=== PATIENT | female | born 1950 | race Caucasian/White ===

== ENCOUNTER 2016-11-27 12:43 | Observation (INO) ==
--- NOTE | 2016-11-27 13:10 | Emergency Department Note ---
Disposition Clinical Impression: Gastroenteritis, UTI (urinary tract infection) Disposition: Admitted As Inpatient Condition: Fair Referrals: Veronica Carr, SECURITY RESEARCHER [Primary Care Provider] - Forms: ED Satisfaction Letter Time of Disposition: 15:33 ([facility]) Nausea/Vomiting/Diarrhea HPI - General Chief complaint: ED Nausea/Vomiting/Diarrhea Stated complaint: N/V/D Source: patient Limitations: no limitations - History of Present Illness Pt Subjective Complaint: nausea, vomiting, diarrhea, abdominal pain Onset (ago): day(s) Description of emesis: food contents Description of Diarrhea: mucous Associated Abdominal Pain: Yes If pain, Location of pain: diffuse Severity: moderate Severity scale (1-10): 5 Quality: cramping Consistency: intermittent Improves with: nothing Worsens with: medication Context: recent antibiotic use Associated symptoms: Reports: loss of appetite. Denies: myalgias, chest pain, cough, diaphoresis, fever/chills, headaches, malaise, nausea/vomiting, dysuria, shortness of breath, syncope, weakness - Related Data Home Medications Medication Instructions Recorded Confirmed Simvastatin [Zocor] 5 mg PO HS 08/04/15 11/21/16 Furosemide [Lasix] 20 mg PO BID 10/23/15 11/21/16 Klor-Con Sprinkle 20 meq PO BID 10/23/15 11/21/16 Insulin Glargine [Lantus] 30 unit QPM 11/21/16 11/21/16 Promethazine [Phenergan] 25 mg PO 11/21/16 Previous Rx's Medication Instructions Recorded OxyCODONE Immed Rel [Roxicodone 5 5 mg PO Q4HR PRN #40 tablet 09/07/15 MG] Cephalexin [Keflex] 1,000 mg PO BID #40 capsule 11/21/16 Phenazopyridine HCl [Pyridium] 200 mg PO TIDAC #8 tab 11/21/16 Allergies Allergy/AdvReac Type Severity Reaction Status Date / Time Sulfa (Sulfonamide Allergy Hives Verified 11/27/16 12:45 Antibiotics) acetaminophen [From Tylenol] AdvReac Anaphylaxis Verified 11/27/16 12:45 gabapentin [From Neurontin] AdvReac Hallucinati Verified 11/27/16 12:45 ng hydrocodone AdvReac Hives Verified 11/27/16 12:45 ibuprofen AdvReac Hives Verified 11/27/16 12:45 All systems ED: reviewed and negative except as stated. Constitutional: Reports: weakness. Denies: fever, chills Eyes: Denies: vision change ENT ED: Denies: ear pain, throat pain, congestion Cardiovascular: Denies: chest pain, palpitations, dyspnea on exertion Respiratory: Denies: cough, dyspnea, wheezes Gastrointestinal: Reports: abdominal pain, nausea, vomiting, diarrhea Genitourinary: Reports: urgency, dysuria, frequency Musculoskeletal: Denies: back pain Integumentary: Denies: rash Neurological: Denies: headache Psychiatric: Denies: anxiety Endocrine: Reports: fatigue Hematological/Lymphatic: Denies: easy bleeding Allergic/Immunologic: Denies: facial swelling Past Medical History - Past Medical History Attestation: Yes The following information was validated with the patient. Source: patient, old records reviewed, nursing notes reviewed Medical history: Reports: CHF, coronary artery disease, diabetes, GERD, hyperlipidemia, hypertension, renal disease Surgical history: Reports: angioplasty/stent, , hysterectomy Psychiatric history: Reports: no psych history [employer] history: Reports: other - Social History Smoking Status: Former smoker Smokeless Tobacco Status: No Alcohol use: Reports: none Drug use: Reports: none Physical Exam - General Limitations: no limitations General appearance: alert, in no apparent distress, anxious - Head Head exam: atraumatic, normocephalic, normal inspection - Eye Eye exam: Present: normal appearance, PERRL, EOMI, other (left eye blind) - ENT ENT exam: normal exam, normal oropharynx, mucous membranes dry, TM's normal bilaterally, normal external ear exam - Neck Neck exam: Present: normal inspection, full ROM, trachea midline - Chest Chest inspection: Present: normal inspection, symmetric chest wall rise - Respiratory Respiratory exam: Present: normal lung sounds bilaterally - Cardiovascular Cardiovascular exam: Present: regular rate, normal rhythm, normal heart sounds - Abdominal Exam Abdominal exam: Present: soft, Non-Tender, distention, normal bowel sounds. Absent: mass, pulsatile mass - Extremities Exam Extremities exam: Present: normal inspection, full ROM, normal capillary refill. Absent: tenderness, joint swelling - Expanded Lower Extremity Exam Gait: observed and normal - Back Exam Back exam: Present: normal inspection, full ROM. Absent: muscle spasm - Neurological Exam Neurological exam: Present: alert, oriented X3, CN II-XII intact - Psychiatric Psychiatric exam: Present: normal affect, normal mood - Skin Skin exam: Present: warm, dry, intact, normal color Course Course Narrative: Seen and examined the patient had a large desiccation all over herself as result awaiting laboratory results - Reevaluation(s) Reevaluation #1: She given fluids and antibiotics here in the emergency room admitted to Dr. Oliveros for observation as a result of hyperglycemia in the UTI Vital Signs Temperature 98.5 F 11/27/16 12:48 Pulse Rate 87 11/27/16 12:48 Respiratory Rate 18 11/27/16 12:48 Blood Pressure 118/71 11/27/16 12:48 O2 Sat by Pulse Oximetry 97 11/27/16 12:48 Temperature 98.5 F 11/27/16 12:48 Pulse Rate 87 11/27/16 12:48 Respiratory Rate 18 11/27/16 12:48 Blood Pressure 118/71 11/27/16 12:48 O2 Sat by Pulse Oximetry 97 11/27/16 12:48 Oxygen Delivery Oxygen Delivery Room Air Nausea/Vomiting/Diarrhea - MDM Narrative Medical decision making narrative: UTI hyperglycemia may be contributed fracture or the result of urinary tract infection causing the hypoglycemia - Differential Diagnosis Likely: gastroenteritis, dehydration - Medical Records Medical records reviewed: Yes I reviewed the patient's medical records. - Lab Data Lab results reviewed: Yes I reviewed the patient's lab results. - Radiology Data Radiology results reviewed: Yes I reviewed the patient's radiology results. ITS Impressions Abdomen/Pelvis CT 11/27/16 13:43 IMPRESSION: 1. Mild left periureteral stranding, which is nonspecific and may be infectious or inflammatory in etiology. A recently passed stone could also be a possibility. 2. Mild distal esophageal wall thickening which may be related to esophagitis. There is also mild pericolonic stranding which is nonspecific and could be related to underdistention. Acute colitis could be a possibility. 3. Indeterminate 1.9 x 1.5 cm slightly hyperdense lesion in the left ovary. Recommend correlation with ultrasound on a nonemergent basis. 4. Extensive atherosclerosis. D/ / 11/27/2016 14:43:22 Mabel Christian MD / Gilma Nicole Interpreting Provider: Mabel Christian MD Critical Care Time Critical Care Time: No
[2016-11-27 14:37] LABS: Basophils % 0.2 %; Eosinophils % 0.1 %; Hematocrit 33.8 % (35.3-44.9); Hemoglobin 11.5 g/dL (11.5-15.4); Immature Granulocytes % 0.2 % (0-4); Lymphocytes # 0.8 K/mcL (0.6-4.6); Lymphocytes % 9.5 %; Mean Corpuscular Hemoglobin 29.9 pg (28.0-33.3); Mean Platelet Volume 11.5 fL (9.4-12.4); Monocytes # 0.4 K/mcL (0.0-1.3); Monocytes % 4.2 %; Neutrophils # 7.1 K/mcL (1.6-8.9); Platelet Count 286 K/mcL (140-400); Red Blood Count 3.84 M/mcL (3.82-4.97); Red Cell Distribution Width 12.2 % (11.5-14.5); Segmented Neutrophils % 85.8 %
[2016-11-27 14:40] LABS: Bilirubin,Urine Negative (Negative); Blood,Urine Large (Negative); Clarity,Urine Slightly Cloudy (Clear); Color,Urine Orange (Yellow); Glucose,Urine (UA) >=1000 mg/dL (Normal); Ketones,Urine Trace mg/dL (Negative); Leukocyte Esterase,Urine Small (Negative); Nitrite,Urine Positive (Negative); Protein,Urine 100 mg/dL (Neg-Trace); Specific Gravity,Urine <= 1.005 (1.010-1.025); Urobilinogen,Urine Normal (Normal)
[2016-11-27 14:54] LABS: Albumin/Globulin Ratio 0.6 (1.1-2.2); Bilirubin,Total 0.4 mg/dL (0.2-1.2); Calcium 9.6 mg/dL (8.6-10.8); Globulin 5.1 g/dL (2.4-3.5); Potassium 4.5 mEq/L (3.5-4.5); Total Protein 8.1 g/dL (6.0-8.3)
[2016-11-27] MEDS ORDERED: Insulin Human Regular 10 UNIT in 0.9 % Sodium Chloride 10 ML IV ONE (15:23)
[2016-11-27 15:24] LABS: Mucus,Urine Few (Few); RBC,Urine 15-30 per hpf (0-3); Squamous Epithelial Cell,Urine Few per lpf (None-Few); WBC,Urine TNTC per hpf (0-3); Yeast,Urine Many per hpf (None Seen)
[2016-11-27] MEDS ORDERED: CefTRIAXone 1,000 MG in D5% in Water (Mini-Bag+) 100 ML IVPB ONE (15:24)
[2016-11-27] MEDS ORDERED: *HR* Promethazine 25 MG/ML VIAL IVP ONE (16:29)
[2016-11-27] MEDS ORDERED: D5% in Water 1,000 ML IV PRN (17:49)
[2016-11-27] MEDS ORDERED: Insulin Regular, Human 100 UNIT/ML SQ ONE (17:49)
[2016-11-27] MEDS ORDERED: Dextrose Gel 15 GM PO PRN ×2 (17:49)
[2016-11-27] MEDS ORDERED: Ibuprofen 400 MG TABLET PO PRN (17:49)
[2016-11-27] MEDS ORDERED: Naloxone 0.4 MG/ML INJ IVP PRN (17:49)
[2016-11-27] MEDS ORDERED: Acetaminophen 325 MG TABLET PO PRN (17:49)
[2016-11-27] MEDS ORDERED: *HR* Dextrose 50 % in Water (Syg) 50 ML SYRINGE IVP PRN (17:49)
[2016-11-27] MEDS ORDERED: Ondansetron 4 MG/2 ML VIAL IVP PRN (17:49)
[2016-11-27] MEDS ORDERED: NON-FORMULARY MEDICATION 1 EACH EACH (Insulin Glargine [Lantus] 30 UNIT) SQ SCH (18:00)
[2016-11-27] MEDS ORDERED: Insulin DETEMIR 100 UNIT/ML per UNIT SQ ONE (18:15)
[2016-11-27] MEDS: Furosemide 40 MG TABLET PO SCH (21:45)
[2016-11-27] MEDS: Famotidine 20 MG TABLET PO SCH (21:46)
[2016-11-27] MEDS: Insulin LISPRO 300 UNITS/3 ML VIAL SQ SCH (21:47)
[2016-11-27] MEDS: 0.9 % Sodium Chloride 1,000 ML IVC SCH (21:48)
[2016-11-27] MEDS: POTASSIUM CHLORIDE 20 MEQ PO SCH (22:16)
[2016-11-28] MEDS: 0.9 % Sodium Chloride 1,000 ML IVC SCH ×2 (04:27→13:10)
[2016-11-28 05:31] LABS: Basophils % 0.5 %; Eosinophils # 0.1 K/mcL (0.0-0.6); Eosinophils % 1.3 %; Hematocrit 30.3 % (35.3-44.9); Hemoglobin 10.1 g/dL (11.5-15.4); Immature Granulocytes % 0.3 % (0-4); Lymphocytes # 2.1 K/mcL (0.6-4.6); Lymphocytes % 33.6 %; Mean Corpuscular HGB Conc 33.3 g/dL (31.6-35.5); Mean Corpuscular Hemoglobin 29.4 pg (28.0-33.3); Mean Corpuscular Volume 88.3 fL (83.0-100.0); Mean Platelet Volume 11.5 fL (9.4-12.4); Monocytes # 0.5 K/mcL (0.0-1.3); Monocytes % 7.7 %; Neutrophils # 3.5 K/mcL (1.6-8.9); Platelet Count 290 K/mcL (140-400); Red Blood Count 3.43 M/mcL (3.82-4.97); Red Cell Distribution Width 12.5 % (11.5-14.5); Segmented Neutrophils % 56.6 %
[2016-11-28 05:37] LABS: Prothrombin Time 11.3 Seconds (9.4-12.1)
[2016-11-28 05:40] LABS: Activated Partial Thrombo Time 26.9 Seconds (26.0-36.0)
[2016-11-28 05:49] LABS: Calcium 8.9 mg/dL (8.6-10.8); Magnesium 2.1 mg/dL (1.6-2.6); Phosphorous 2.9 mg/dL (2.3-4.7); Potassium 3.5 mEq/L (3.5-4.5)
[2016-11-28] MEDS: Insulin LISPRO 300 UNITS/3 ML VIAL SQ SCH ×3 (07:42→17:46)
[2016-11-28] MEDS: Furosemide 40 MG TABLET PO SCH (09:00)
[2016-11-28] MEDS: Famotidine 20 MG TABLET PO SCH (09:00)
[2016-11-28] MEDS: CefTRIAXone 1,000 MG in D5% in Water (Mini-Bag+) 100 ML IVPB SCH (09:02)
[2016-11-28] MEDS: POTASSIUM CHLORIDE 20 MEQ PO SCH ×3 (09:02→21:10)
--- NOTE | 2016-11-28 14:50 | Internal Med History&Physical ---
Date of Encounter: 11/28/16 Time of Encounter: 14:15 Assessment and Plan (1) Vomiting Current visit: Yes Status: Acute Suspect acute gastroenteritis. We will give IV fluids and prn anti-emetics Qualifiers: Vomiting type: unspecified Vomiting Intractability: non-intractable Nausea presence: with nausea Qualified Code(s): R11.2 - Nausea with vomiting, unspecified (2) Diarrhea Current visit: Yes Status: Acute We will check stool for C. difficile and lactoferrin Qualifiers: Diarrhea type: unspecified type Qualified Code(s): R19.7 - Diarrhea, unspecified (3) CKD (chronic kidney disease) stage 4, GFR 15-29 ml/min Current visit: Yes Status: Acute We will give IV fluids, hold Lasix, and monitor renal indices. (4) UTI (urinary tract infection) Current visit: No Status: Acute We will send urine for culture and sensitivity. She has been started on Rocephin. We will continue this and add lactobacillus. Qualifiers: Urinary tract infection type: acute cystitis Hematuria presence: with hematuria Qualified Code(s): N30.01 - Acute cystitis with hematuria (5) Hyperglycemia due to type 1 diabetes mellitus Current visit: No Status: Acute We will continue Levemir and do Accu-Cheks with SSI. Hemoglobin A1c was elevated at 9.1% on 10/31/2015. We will recheck in a.m. Internal Medicine - H&P: HPI Chief complaint: Vomiting and diarrhea Admitted From: Home Plans for Post Hospital Care: Home History of present illness: Ms. Mohamud is a 66 year old female who came to the emergency room stating she was diagnosed with UTI October 04. She completed a course of Cipro with Pyridium and had temporary improvement but again developed UTI symptoms. She came back to emergency room November 21 and was diagnosed with UTI and given Keflex and Pyridium. Her symptoms did not improve and she developed vomiting on November 24. She had lower abdominal discomfort for several days already. She developed worsening diarrhea over the next 2 days. She came to emergency room again and was evaluated and felt to have UTI and gastroenteritis. She was admitted to [facility] for ongoing care needs. She states her last episode of vomiting was in emergency room. She has had loose stool since being admitted to [facility]. She was hospitalized last at [facility] September 2014 with vomiting and diarrhea. Her GI history is pertinent for GERD but no known disorders of her liver gallbladder or exocrine pancreas. Past Med Surg Social Fam HX - Past Medical History Medical history: CHF, coronary artery disease, diabetes, GERD, hyperlipidemia, hypertension, renal disease Psychiatric history: no psych history - Past Surgical History Surgical History: angioplasty/stent, , hysterectomy - Social History Smoking Status: Former smoker Smokeless Tobacco Status: No Alcohol use: none Drug use: none - Family History Mother Family Member Ethnicity: Non- Living Status: Hx Family Cardiac Disorders: Yes Hx Family Respiratory Disorders: No Hx Family Cancer: No Hx Family GI Disorders: No Hx Family Endocrine Disorder: Yes (DM) Hx Family Neuromuscular Disorders: No Hx Family Neurologic Disorders: No Hx Family HEENT Disorders: No Hx Family Autoimmune Disorders: No Father Family Member Ethnicity: Non- Living Status: Hx Family Cardiac Disorders: Yes Hx Family Respiratory Disorders: No Hx Family Cancer: No Hx Family GI Disorders: No Hx Family Endocrine Disorder: No Hx Family Neuromuscular Disorders: No Hx Family Neurologic Disorders: No Hx Family HEENT Disorders: No Hx Family Autoimmune Disorders: No Internal Medicine - H&P: Meds Simvastatin [Zocor] 5 mg PO HS 08/04/15 [History] OxyCODONE Immed Rel [Roxicodone 5 MG] 5 mg PO Q4HR PRN #40 tablet 09/07/15 [Rx] Furosemide [Lasix] 20 mg PO BID 10/23/15 [History] Klor-Con Sprinkle 20 meq PO BID 10/23/15 [History] Cephalexin [Keflex] 1,000 mg PO BID #40 capsule 11/21/16 [Rx] Insulin Glargine [Lantus] 30 unit QPM 11/21/16 [History] Phenazopyridine HCl [Pyridium] 200 mg PO TIDAC #8 tab 11/21/16 [Rx] Promethazine [Phenergan] 25 mg PO 11/21/16 [History] Allergies Sulfa (Sulfonamide Antibiotics) Allergy (Verified 11/27/16 12:45) Hives acetaminophen [From Tylenol] Adverse Reaction (Verified 11/27/16 12:45) Anaphylaxis gabapentin [From Neurontin] Adverse Reaction (Verified 11/27/16 12:45) Hallucinating hydrocodone Adverse Reaction (Verified 11/27/16 12:45) Hives ibuprofen Adverse Reaction (Verified 11/27/16 12:45) Hives All Systems PM: A 10-system review of systems was performed and is negative for pertinent findings except as documented above in the HPI. Review of systems: General: Her weight has decreased approximately 20 pounds since the September 2014 [facility] hospitalization. Cardiovascular: She has known ASHD with stents placed in 2004 and 2005. There was no preceding LA. Her last cath was 2005 at the time of stent placement. She had an exercise stress test in 2012 which she reports was negative. She denies DVT pulmonary emboli hypertension or heart failure Respiratory: She smoked for approximately 4 years in her early 20s but has no known chronic lung disease. She does not wear home oxygen and does not recall being tested for sleep apnea GI: As per history of present illness : No history of hematuria dysuria or kidney stones. She has CKD stage III Neurologic: She denies large distribution strokes or seizures. 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 She has hyperlipidemia but no known thyroid disease Hematology/oncology: She denies blood disorders cancers or anemia Psychiatric: She denies anxiety depression or other mental health issues Musk skeletal: She denies arthritis or osteoporosis or gout. She did have elevated uric acid level at 8.0 on 02/13/2016. - Constitutional Vitals: Temp Pulse Resp BP Pulse Ox 98.6 F 73 16 102/65 96 11/28/16 13:09 11/28/16 13:09 11/28/16 13:09 11/28/16 13:09 11/28/16 13:09 Exam: Gen.: She is a well-developed well-nourished female who appears in no significant distress at present time. HEENT: Head is atraumatic and normocephalic. Eyes: EOMI. There is no scleral icterus. The left eye shows a clouded cornea and atrophied globe. Mouth: Mucosa is moist. Neck: Supple and nontender. There is no thyromegaly or adenopathy noted. Heart: Regular without murmurs gallops or ectopics Lungs: No wheezes or crackles heard. Abdomen: Soft and nontender. No masses or guarding are noted. Extremities: There is no cyanosis edema or clubbing noted. Dorsalis pedis and posttibial pulses are trace palpable bilaterally. She has had amputation of the right great toe. Neurologic: Mental status: She is talkative and a good historian. Cranial nerves: Smile is symmetric. Forehead wrinkles bilaterally. Tongue protrudes midline. EOMI (right eye). Motor: There is no pronator drift. Cerebellar: Finger to nose is intact bilaterally. Skin: Warm and dry Internal Med - H&P Results - Labs CBC & Chem 7: 11/28/16 04:26 11/28/16 04:26 Labs: Short CBC 11/28/16 Range/Units 04:26 WBC 6.2 (4.3-11.1) K/mcL Hgb 10.1 L (11.5-15.4) g/dL Hct 30.3 L (35.3-44.9) % Plt Count 290 (140-400) K/mcL Neutrophils # 3.5 (1.6-8.9) K/mcL BMP 11/28/16 04:26 Sodium 137 D Potassium 3.5 D Chloride 101 Carbon Dioxide 23 BUN 37 H Creatinine 1.90 H Glucose 168 H Calcium 8.9
[2016-11-28] MEDS ORDERED: Ondansetron 4 MG/2 ML VIAL IVP PRN (15:12)
[2016-11-28] MEDS: 0.45 % Sodium Chloride w/KCl 20 MEQ/1,000 ML MLS IVC SCH (16:37)
[2016-11-28] MEDS ORDERED: Furosemide 20 MG TABLET PO SCH (17:00)
[2016-11-28] MEDS: Insulin DETEMIR 100 UNIT/ML X5UNITS SQ SCH (17:47)
[2016-11-28] MEDS: Lactobacillus 1 EACH CAP.SPRINK PO SCH (21:10)
[2016-11-28] MEDS: *HR* OxyCODONE Immed Rel 5 MG TABLET PO PRN (21:16)
[2016-11-29] MEDS: 0.45 % Sodium Chloride w/KCl 20 MEQ/1,000 ML MLS IVC SCH ×2 (02:29→16:03)
[2016-11-29 07:35] LABS: Basophils % 0.4 %; Eosinophils # 0.2 K/mcL (0.0-0.6); Eosinophils % 2.4 %; Hematocrit 30.3 % (35.3-44.9); Hemoglobin 9.8 g/dL (11.5-15.4); Immature Granulocytes % 0.4 % (0-4); Lymphocytes # 2.2 K/mcL (0.6-4.6); Lymphocytes % 29.1 %; Mean Corpuscular HGB Conc 32.3 g/dL (31.6-35.5); Mean Corpuscular Hemoglobin 29.8 pg (28.0-33.3); Mean Corpuscular Volume 92.1 fL (83.0-100.0); Mean Platelet Volume 11.2 fL (9.4-12.4); Monocytes # 0.5 K/mcL (0.0-1.3); Neutrophils # 4.6 K/mcL (1.6-8.9); Platelet Count 256 K/mcL (140-400); Red Blood Count 3.29 M/mcL (3.82-4.97); Red Cell Distribution Width 12.6 % (11.5-14.5); Segmented Neutrophils % 60.7 %
[2016-11-29 07:57] LABS: Beta-Hydroxybutyric Acid 0.13 mmol/L (0.02-0.27)
[2016-11-29 08:20] LABS: Uric Acid 6.3 mg/dL (2.6-6.0)
[2016-11-29 08:44] LABS: Estimated Average Glucose > 355 mg/dl; Hemoglobin A1C >= 14.1 %
[2016-11-29] MEDS: Insulin LISPRO 300 UNITS/3 ML VIAL SQ SCH ×3 (09:17→16:44)
[2016-11-29] MEDS: CefTRIAXone 1,000 MG in D5% in Water (Mini-Bag+) 100 ML IVPB SCH (09:18)
[2016-11-29] MEDS: POTASSIUM CHLORIDE 20 MEQ PO SCH ×2 (09:18→21:25)
[2016-11-29] MEDS: Lactobacillus 1 EACH CAP.SPRINK PO SCH ×2 (09:18→21:25)
--- NOTE | 2016-11-29 10:28 | Internal Med Progress Note ---
Date of Encounter: 11/29/16 Time of Encounter: 10:20 - Assessment and plan (1) Vomiting Current Visit: Yes Status: Acute Assessment and plan: November 29. Decrease IV fluids and continue diet. Anticipate discharge home tomorrow if stable Qualifiers: Vomiting type: unspecified Vomiting Intractability: non-intractable Nausea presence: with nausea Qualified Code(s): R11.2 - Nausea with vomiting, unspecified (2) Diarrhea Current Visit: Yes Status: Acute Assessment and plan: November 29. Resolved. Continue to monitor. Qualifiers: Diarrhea type: unspecified type Qualified Code(s): R19.7 - Diarrhea, unspecified (3) CKD (chronic kidney disease) stage 4, GFR 15-29 ml/min Current Visit: Yes Status: Acute Assessment and plan: November 29. Azotemia is slightly improved. Continue present management. (4) UTI (urinary tract infection) Current Visit: No Status: Inactive Assessment and plan: Continue Rocephin and lactobacillus. Qualifiers: Urinary tract infection type: acute cystitis Hematuria presence: with hematuria Qualified Code(s): N30.01 - Acute cystitis with hematuria (5) Hyperglycemia due to type 1 diabetes mellitus Current Visit: No Status: Chronic Assessment and plan: November 29. Hemoglobin A1c returned greater than 14.1%. Blood sugars have shown significant fluctuation during hospitalization. Continue to monitor Accu- Cheks with SSI - Subjective Interval history: November 29. She has no new complaints. She states her diarrhea has resolved. She has had minimal vomiting since yesterday. She still does not feel back to her baseline however. - Constitutional Vitals: Temp Pulse Resp BP Pulse Ox 97.5 F L 70 18 116/76 94 L 11/29/16 06:47 11/29/16 06:47 11/29/16 06:47 11/29/16 06:47 11/29/16 06:47 Exam: She is resting comfortably in bed and appears in no acute distress. Her affect is cheerful. I reviewed her medications and lab results. Internal Medicine: Result - Labs CBC & Chem 7: 11/29/16 07:15 11/28/16 04:26 Labs: Short CBC 11/29/16 Range/Units 07:15 WBC 7.6 (4.3-11.1) K/mcL Hgb 9.8 L (11.5-15.4) g/dL Hct 30.3 L (35.3-44.9) % Plt Count 256 (140-400) K/mcL Neutrophils # 4.6 (1.6-8.9) K/mcL - ABG Interpretation ABG results: PT/INR, D-dimer PT 11.3 Seconds (9.4-12.1) 11/28/16 04:26 Consult Discharge Plan - Plan Referrals: Veronica Carr, GREEN ENERGY MARKETING ANALYST [Primary Care Provider] - 1 week
[2016-11-29] MEDS ORDERED: Insulin DETEMIR 100 UNIT/ML per UNIT SQ ONE (19:10)
[2016-11-29] MEDS: *HR* OxyCODONE Immed Rel 5 MG TABLET PO PRN (21:28)
[2016-11-30 07:17] LABS: Basophils % 0.5 %; Eosinophils # 0.2 K/mcL (0.0-0.6); Eosinophils % 2.8 %; Hemoglobin 9.6 g/dL (11.5-15.4); Immature Granulocytes % 0.6 % (0-4); Lymphocytes % 31.2 %; Mean Corpuscular Hemoglobin 29.4 pg (28.0-33.3); Mean Corpuscular Volume 91.7 fL (83.0-100.0); Mean Platelet Volume 11.3 fL (9.4-12.4); Monocytes # 0.4 K/mcL (0.0-1.3); Monocytes % 6.5 %; Neutrophils # 3.7 K/mcL (1.6-8.9); Platelet Count 248 K/mcL (140-400); Red Blood Count 3.27 M/mcL (3.82-4.97); Red Cell Distribution Width 12.5 % (11.5-14.5); Segmented Neutrophils % 58.4 %
[2016-11-30] MEDS: CefTRIAXone 1,000 MG in D5% in Water (Mini-Bag+) 100 ML IVPB SCH (08:30)
[2016-11-30 08:31] LABS: Calcium 8.5 mg/dL (8.6-10.8)
[2016-11-30] MEDS: 0.45 % Sodium Chloride w/KCl 20 MEQ/1,000 ML MLS IVC SCH (08:41)
[2016-11-30] MEDS: Insulin LISPRO 300 UNITS/3 ML VIAL SQ SCH ×2 (08:46→12:20)
[2016-11-30 08:51] LABS: Potassium 6.2 mEq/L (3.5-4.5)
[2016-11-30] MEDS: POTASSIUM CHLORIDE 20 MEQ PO SCH (10:03)
[2016-11-30] MEDS: Lactobacillus 1 EACH CAP.SPRINK PO SCH (10:03)
[2016-11-30] MEDS ORDERED: D5% in Water 1,000 ML IVC SCH (10:15)
[2016-11-30] MEDS: Insulin DETEMIR 100 UNIT/ML X5UNITS SQ SCH (10:35)
--- NOTE | 2016-11-30 11:19 | Discharge Summary ---
Date of Encounter: 11/30/16 Time of Encounter: 11:05 - Discharge Diagnosis (1) Vomiting Priority: Primary Status: Acute Qualifiers: Vomiting type: unspecified Vomiting Intractability: non-intractable Nausea presence: with nausea Qualified Code(s): R11.2 - Nausea with vomiting, unspecified (2) Diarrhea Priority: Secondary Status: Resolved Qualifiers: Diarrhea type: unspecified type Qualified Code(s): R19.7 - Diarrhea, unspecified (3) CKD (chronic kidney disease) stage 4, GFR 15-29 ml/min Priority: Secondary Status: Chronic (4) UTI (urinary tract infection) Priority: Secondary Status: Resolved Qualifiers: Urinary tract infection type: acute cystitis Hematuria presence: with hematuria Qualified Code(s): N30.01 - Acute cystitis with hematuria (5) Hyperglycemia due to type 1 diabetes mellitus Priority: Secondary Status: Chronic - Discharge Medications Prescriptions: Furosemide [Lasix] 40 mg PO DAILY 365 Days Metoclopramide [Reglan] 5 mg PO BIDWM #60 tablet Ondansetron HCl [Zofran] 4 mg PO Q4H PRN #20 tablet PRN Reason: Nausea Home Medications: OxyCODONE Immed Rel [Roxicodone 5 MG] 5 mg PO Q4HR PRN #40 tablet 09/07/15 [Rx] Insulin Glargine [Lantus] 30 unit QPM 11/21/16 [History] Phenazopyridine HCl [Pyridium] 200 mg PO TIDAC #8 tab 11/21/16 [Rx] Furosemide [Lasix] 40 mg PO DAILY 365 Days 11/30/16 [Rx] Metoclopramide [Reglan] 5 mg PO BIDWM #60 tablet 11/30/16 [Rx] Ondansetron HCl [Zofran] 4 mg PO Q4H PRN #20 tablet 11/30/16 [Rx] Simvastatin [Zocor] 10 mg PO HS tablet 11/30/16 [Rx] Allergies/Adverse Reactions: Allergies Sulfa (Sulfonamide Antibiotics) Allergy (Verified 11/27/16 12:45) Hives acetaminophen [From Tylenol] Adverse Reaction (Verified 11/27/16 12:45) Anaphylaxis gabapentin [From Neurontin] Adverse Reaction (Verified 11/27/16 12:45) Hallucinating hydrocodone Adverse Reaction (Verified 11/27/16 12:45) Hives ibuprofen Adverse Reaction (Verified 11/27/16 12:45) Hives Date of admission: 11/27/16 17:25 Primary care physician: Veronica Carr CNP - Patient Status Disposition: Home, Self-Care Condition: Fair Overall status at discharge: patient is progressing back to baseline - Discharge Instructions Follow Up With: Veronica Carr CNP [Primary Care Provider] - 1 week - Diet and Activity Activity: resume usual activities as tolerated Diet: diabetic diet Hospital course: Ms. Mohamud is a 66 year old female who came to the emergency room stating she was diagnosed with UTI October 04. She completed a course of Cipro with Pyridium and had temporary improvement but again developed UTI symptoms. She came back to emergency room November 21 and was diagnosed with UTI and given Keflex and Pyridium. Her symptoms did not improve and she developed vomiting on November 24. She had lower abdominal discomfort for several days already. She developed worsening diarrhea over the next 2 days. She came to emergency room again and was evaluated and felt to have UTI and gastroenteritis. She was admitted to [facility] for ongoing care needs. Initial orders were written by the emergency room physician. I saw her on November 28 and performed the history and physical. I started her on IV fluids and ordered prn anti-emetics. Her vomiting improved but was still present at the time of discharge. I told her she might have diabetic gastroparesis and she agreed to empirically start Reglan at low dose as a trial to see if improvement occurred. She can have nuclear medicine gastric emptying study done as an outpatient if needed per order of her PCP. She will be given Zofran for prn use at discharge and discontinue Phenergan. Her diarrhea resolved during hospitalization. IV fluids were given and Lasix was discontinued during hospitalization. Her renal indices improved with BUN and creatinine being 28 and 1.4 respectively on the day of discharge. She will reduce her Lasix dose to 40 mg daily at home. Supplemental potassium will be discontinued for now. She was started empirically on Rocephin at admission for possible UTI. Urine culture showed no growth and she will not continue antibiotics at discharge. Hemoglobin A1c returned markedly elevated at greater than 14.1%. I told her that her PCP can adjust diabetic treatment regimen to improve blood sugar control. On November 30 she felt improved and stable for discharge home. She will follow with her PCP within one week. - Time Spent with Patient Total time spent providing and/or coordinating discharge services: - Constitutional Vitals: Temp Pulse Resp BP Pulse Ox 97.7 F 68 16 106/67 94 L 11/30/16 08:00 11/30/16 08:00 11/30/16 08:00 11/30/16 08:00 11/30/16 08:00
[2016-11-30] MEDS: 0.9 % Sodium Chloride 1,000 ML IVC SCH (11:49)
[2016-11-30 12:01] VITALS: BP 125/71
[2016-11-30 14:20] LABS: Calcium 8.6 mg/dL (8.6-10.8); Potassium 5.9 mEq/L (3.5-4.5)
[2016-11-30] MEDS ORDERED: Insulin DETEMIR 100 UNIT/ML X5UNITS SQ SCH (18:00)
== END 2016-11-30 17:30 | disposition home or self-care (01) ==
LOC: INPPIK 12:43 → EMEROOPIK 12:43 → INPPIK 17:42
PROVIDERS: ADMIT Internal Medicine; ATTEND Internal Medicine

== ENCOUNTER 2016-12-04 11:47 | Inpatient (IN) ==
[2016-12-04] MEDS ORDERED: 0.9 % Sodium Chloride 1,000 ML IVC ONE (11:52)
[2016-12-04] MEDS ORDERED: Ondansetron 4 MG/2 ML VIAL IVP ONE (11:52)
--- NOTE | 2016-12-04 11:53 | Emergency Department Note ---
Disposition Clinical Impression: Acute on chronic kidney failure, Gastroenteritis, Infestation by bed bug UTI (urinary tract infection) Qualifiers: Urinary tract infection type: acute cystitis Hematuria presence: without hematuria Qualified Code(s): N30.00 - Acute cystitis without hematuria Disposition: Admitted As Inpatient Referrals: Veronica Carr CNP [Primary Care Provider] - Forms: ED Satisfaction Letter Nausea/Vomiting/Diarrhea HPI - General Chief complaint: ED Fever Stated complaint: not feeling well Time Seen by Provider: 12/04/16 11:50 Source: patient, EMS Mode of arrival: EMS Limitations: no limitations Nursing Notes Reviewed: Yes Vital Signs Reviewed: Yes - History of Present Illness HPI Narrative: The patient has been brought in by EMS with report of "not feeling well". The squad was dispatched for possible diabetic emergency [id number] blood sugar to be 209. She does report that she is having continued nausea, vomiting and diarrhea status post discharge from the hospital on November 30 for syndrome. She does report also some cough and shortness of breath without production of phlegm. She has had some diffuse abdominal pain that she cannot describe. She was diagnosed as a urinary tract infection during her previous admission and she states she has been taking her antibiotics denies urinary frequency or burning. She has a headache, light sensitivity or neck pain. She is quite hard of hearing and this makes history somewhat difficult. She is tightly bound on presentation in multiple sheets with report of her having multiple large bed bugs on her person. Pt Subjective Complaint: nausea, vomiting, diarrhea, other (Cough and fever) Onset (ago): day(s) Description of emesis: food contents Description of Diarrhea: water Associated Abdominal Pain: Yes If pain, Location of pain: diffuse Severity: moderate Quality: cramping Consistency: Worsening Improves with: nothing Worsens with: eating Context: sick contacts Associated symptoms: Reports: cough, fever/chills, loss of appetite, malaise, nausea/vomiting, shortness of breath, weakness. Denies: myalgias, chest pain, diaphoresis, headaches, rash, dysuria, syncope - Related Data Home Medications Medication Instructions Recorded Confirmed Insulin Glargine [Lantus] 30 unit QPM 11/21/16 12/04/16 Previous Rx's Medication Instructions Recorded OxyCODONE Immed Rel [Roxicodone 5 5 mg PO Q4HR PRN #40 tablet 11/25/15 MG] Furosemide [Lasix] 40 mg PO DAILY 365 Days 11/30/16 Metoclopramide [Reglan] 5 mg PO BIDWM #60 tablet 11/30/16 Ondansetron HCl [Zofran] 4 mg PO Q4H PRN #20 tablet 11/30/16 Simvastatin [Zocor] 10 mg PO HS tablet 11/30/16 Allergies Allergy/AdvReac Type Severity Reaction Status Date / Time Sulfa (Sulfonamide Allergy Hives Verified 12/04/16 11:50 Antibiotics) acetaminophen [From Tylenol] AdvReac Anaphylaxis Verified 12/04/16 11:50 gabapentin [From Neurontin] AdvReac Hallucinati Verified 12/04/16 11:50 ng hydrocodone AdvReac Hives Verified 12/04/16 11:50 ibuprofen AdvReac Hives Verified 12/04/16 11:50 All systems ED: reviewed and negative except as stated. Past Medical History - Past Medical History Attestation: Yes The following information was validated with the patient. Source: patient, old records reviewed, nursing notes reviewed Medical history: Reports: CHF, coronary artery disease, diabetes, GERD, hyperlipidemia, hypertension, renal disease Surgical history: Reports: angioplasty/stent, , hysterectomy Psychiatric history: Reports: no psych history SANITIZER history: Reports: other - Social History Smoking Status: Former smoker Smokeless Tobacco Status: No Alcohol use: Reports: none Drug use: Reports: none Physical Exam - General Limitations: physical limitation (Heart is hearing) General appearance: alert, in no apparent distress - Head Head exam: atraumatic, normocephalic, normal inspection - Eye Eye exam: Present: normal appearance, PERRL, EOMI. Absent: scleral icterus, conjunctival injection - ENT ENT exam: normal exam, normal oropharynx, mucous membranes moist - Neck Neck exam: Present: normal inspection, full ROM, trachea midline - Chest Chest inspection: Present: normal inspection, symmetric chest wall rise - Respiratory Respiratory exam: Present: normal lung sounds bilaterally. Absent: respiratory distress, wheezes, prolonged expiratory phase - Cardiovascular Cardiovascular exam: Present: regular rate, normal rhythm, normal heart sounds. Absent: tachycardia - Abdominal Exam Abdominal exam: Present: soft, normal bowel sounds. Absent: distention, guarding, rebound, rigidity Abdominal tenderness: Present: diffuse, mild - Extremities Exam Extremities exam: Present: normal inspection, full ROM, normal capillary refill. Absent: tenderness, pedal edema - Expanded Lower Extremity Exam Neurovascular/Tendon exam: Present: normal capillary refill. Absent: motor deficit, sensory deficit, tendon deficit Gait: not tested/not observed - Back Exam Back exam: Present: normal inspection, full ROM. Absent: tenderness, CVA tenderness (R), CVA tenderness (L) - Neurological Exam Neurological exam: Present: alert, oriented X3. Absent: motor sensory deficit - Psychiatric Psychiatric exam: Present: normal affect, normal mood - Skin Skin exam: Present: warm, dry, intact, normal color. Absent: diaphoresis, pallor Course Course Narrative: 1240: Dr. Oliveros has been paged to assist ongoing care of this patient. I will discuss antibiotic selection with Dr. Oliveros as well as orders for admission. Vital Signs Temperature 104 F H 12/04/16 11:52 Pulse Rate 98 12/04/16 11:52 Respiratory Rate 18 12/04/16 11:52 Blood Pressure 113/55 12/04/16 11:52 O2 Sat by Pulse Oximetry 93 L 12/04/16 11:52 Temperature 104 F H 12/04/16 11:54 Pulse Rate 98 12/04/16 11:54 Respiratory Rate 18 12/04/16 11:54 Blood Pressure 113/55 12/04/16 11:54 O2 Sat by Pulse Oximetry 93 L 12/04/16 11:54 Oxygen Delivery Oxygen Delivery Room Air Nausea/Vomiting/Diarrhea - Differential Diagnosis Likely: food poisoning, gastroenteritis, dehydration - Medical Records Medical records reviewed: Yes I reviewed the patient's medical records. CT/CT abd pelvis wo no iv no oral IMPRESSION: 1. Mild left periureteral stranding, which is nonspecific and may be infectious or inflammatory in etiology. A recently passed stone could also be a possibility. 2. Mild distal esophageal wall thickening which may be related to esophagitis. There is also mild pericolonic stranding which is nonspecific and could be related to underdistention. Acute colitis could be a possibility. 3. Indeterminate 1.9 x 1.5 cm slightly hyperdense lesion in the left ovary. Recommend correlation with ultrasound on a nonemergent basis. 4. Extensive atherosclerosis. D/ 11/27/2016 14:43:22 Mabel Christian MD / Gilma Nicole - Lab Data Lab results reviewed: Yes I reviewed the patient's lab results. Lab results narrative: Influenza A and B are negative. Result diagrams: 12/04/16 12:06 12/04/16 12:06 Lab Results 12/04/16 12/04/16 12/04/16 Range/Units 12:06 12:06 12:06 WBC 10.2 D (4.3-11.1) K/mcL RBC 3.11 L (3.82-4.97) M/mcL Hgb 9.1 L (11.5-15.4) g/dL Hct 28.2 L (35.3-44.9) % MCV 90.7 (83.0-100.0) fL MCH 29.3 (28.0-33.3) pg MCHC 32.3 (31.6-35.5) g/dL RDW 12.9 (11.5-14.5) % Plt Count 260 (140-400) K/mcL MPV 10.9 (9.4-12.4) fL Immature Gran % 0.3 (0-4) % Seg Neutrophils % 81.6 % Lymphocytes % 11.4 % Monocytes % 4.8 % Eosinophils % 1.6 % Basophils % 0.3 % Neutrophils # 8.3 (1.6-8.9) K/mcL Lymphocytes # 1.2 (0.6-4.6) K/mcL Monocytes # 0.5 (0.0-1.3) K/mcL Eosinophils # 0.2 (0.0-0.6) K/mcL Basophils # 0.0 (0.0-0.2) K/mcL VBG Lactic Acid 1.6 (0.5-2.2) mmol/L Sodium 136 (136-145) mEq/L Potassium 4.7 H (3.5-4.5) mEq/L Chloride 102 (98-109) mEq/L Carbon Dioxide 23 (19-29) mEq/L BUN 35 H (7-20) mg/dL Creatinine 2.02 H (0.57-1.11) mg/dL Est GFR ( Amer) 30 L (> 60) Est GFR (Non-Af Amer) 25 L (> 60) BUN/Creatinine Ratio 17 (6-26) Glucose 162 H (70-99) mg/dL Calculated Osmolality 294 (280-300) Calcium 8.8 (8.6-10.8) mg/dL Total Bilirubin 0.3 (0.2-1.2) mg/dL Direct Bilirubin 0.1 (0.0-0.5) mg/dL Indirect Bilirubin 0.2 (0.0-1.2) mg/dL AST 12 (5-34) Units/L ALT 9 (0-55) Units/L Alkaline Phosphatase 80 (38-126) Units/L Serum Total Protein 7.0 (6.0-8.3) g/dL Albumin 2.9 L (3.5-5.0) g/dL Globulin 4.1 H (2.4-3.5) g/dL Albumin/Globulin Ratio 0.7 L (1.1-2.2) Amylase 47 (25-125) Units/L Lipase 16 (8-78) Units/L Urine Color (Yellow) Urine Clarity (Clear) Urine pH (5.0-8.0) pH Units Ur Specific [place] (1.010-1.025) Urine Protein (Neg-Trace) mg/dL Urine Glucose (UA) (Normal) mg/dL Urine Ketones (Negative) mg/dL Urine Blood (Negative) Urine Nitrite (Negative) Urine Bilirubin (Negative) Urine Urobilinogen (Normal) mg/dL Ur Leukocyte Esterase (Negative) Urine Microscopic RBC (0-3) per hpf Urine Microscopic WBC (0-3) per hpf Ur Squamous Epith Cells (None-Few) per lpf Urine Bacteria (None-Few) per hpf Urine Mucus (Few) Urine Yeast (None Seen) per hpf Ur Culture Indicated? (NO) 12/04/16 Range/Units 12:39 WBC (4.3-11.1) K/mcL RBC (3.82-4.97) M/mcL Hgb (11.5-15.4) g/dL Hct (35.3-44.9) % MCV (83.0-100.0) fL MCH (28.0-33.3) pg MCHC (31.6-35.5) g/dL RDW (11.5-14.5) % Plt Count (140-400) K/mcL MPV (9.4-12.4) fL Immature Gran % (0-4) % Seg Neutrophils % % Lymphocytes % % Monocytes % % Eosinophils % % Basophils % % Neutrophils # (1.6-8.9) K/mcL Lymphocytes # (0.6-4.6) K/mcL Monocytes # (0.0-1.3) K/mcL Eosinophils # (0.0-0.6) K/mcL Basophils # (0.0-0.2) K/mcL VBG Lactic Acid (0.5-2.2) mmol/L Sodium (136-145) mEq/L Potassium (3.5-4.5) mEq/L Chloride (98-109) mEq/L Carbon Dioxide (19-29) mEq/L BUN (7-20) mg/dL Creatinine (0.57-1.11) mg/dL Est GFR ( Amer) (> 60) Est GFR (Non-Af Amer) (> 60) BUN/Creatinine Ratio (6-26) Glucose (70-99) mg/dL Calculated Osmolality (280-300) Calcium (8.6-10.8) mg/dL Total Bilirubin (0.2-1.2) mg/dL Direct Bilirubin (0.0-0.5) mg/dL Indirect Bilirubin (0.0-1.2) mg/dL AST (5-34) Units/L ALT (0-55) Units/L Alkaline Phosphatase (38-126) Units/L Serum Total Protein (6.0-8.3) g/dL Albumin (3.5-5.0) g/dL Globulin (2.4-3.5) g/dL Albumin/Globulin Ratio (1.1-2.2) Amylase (25-125) Units/L Lipase (8-78) Units/L Urine Color Yellow (Yellow) Urine Clarity Cloudy A (Clear) Urine pH 5.5 (5.0-8.0) pH Units Ur Specific [place] 1.020 (1.010-1.025) Urine Protein 100 H (Neg-Trace) mg/dL Urine Glucose (UA) >=1000 H (Normal) mg/dL Urine Ketones Negative (Negative) mg/dL Urine Blood Large H (Negative) Urine Nitrite Negative (Negative) Urine Bilirubin Negative (Negative) Urine Urobilinogen Normal (Normal) mg/dL Ur Leukocyte Esterase Small H (Negative) Urine Microscopic RBC 5-15 H (0-3) per hpf Urine Microscopic WBC TNTC H (0-3) per hpf Ur Squamous Epith Cells Moderate H (None-Few) per lpf Urine Bacteria Few (None-Few) per hpf Urine Mucus Moderate H (Few) Urine Yeast Many H (None Seen) per hpf Ur Culture Indicated? YES A (NO) - Radiology Data Radiology results reviewed: Yes I reviewed the patient's radiology results. Single view chest x-ray is performed. This does not demonstrate evidence for infiltrate, effusion, pneumothorax, foreign body or heart failure. The cardiac silhouette is normal. Her symptoms scar in the left base which is unchanged from prior films. I do not see abnormality to the osseous structures of the chest. This is on my interpretation. Impressions Chest X-Ray 12/04/16 11:52 IMPRESSION: 1. Increased density involving the left lower lung zone which could represent developing pneumonia. Follow-up PA and lateral chest x-ray to resolution is recommended. D/ / Onofre Luna MD / Onofre Luna MD Interpreting Provider: Onofre Luna MD
[2016-12-04 12:13] LABS: Basophils % 0.3 %; Eosinophils # 0.2 K/mcL (0.0-0.6); Eosinophils % 1.6 %; Hematocrit 28.2 % (35.3-44.9); Hemoglobin 9.1 g/dL (11.5-15.4); Immature Granulocytes % 0.3 % (0-4); Lymphocytes # 1.2 K/mcL (0.6-4.6); Lymphocytes % 11.4 %; Mean Corpuscular HGB Conc 32.3 g/dL (31.6-35.5); Mean Corpuscular Hemoglobin 29.3 pg (28.0-33.3); Mean Corpuscular Volume 90.7 fL (83.0-100.0); Mean Platelet Volume 10.9 fL (9.4-12.4); Monocytes # 0.5 K/mcL (0.0-1.3); Monocytes % 4.8 %; Neutrophils # 8.3 K/mcL (1.6-8.9); Platelet Count 260 K/mcL (140-400); Red Blood Count 3.11 M/mcL (3.82-4.97); Red Cell Distribution Width 12.9 % (11.5-14.5); Segmented Neutrophils % 81.6 %
[2016-12-04 12:32] LABS: Albumin 2.9 g/dL (3.5-5.0); Albumin/Globulin Ratio 0.7 (1.1-2.2); Bilirubin,Direct 0.1 mg/dL (0.0-0.5); Bilirubin,Indirect 0.2 mg/dL (0.0-1.2); Bilirubin,Total 0.3 mg/dL (0.2-1.2); Calcium 8.8 mg/dL (8.6-10.8); Globulin 4.1 g/dL (2.4-3.5); Potassium 4.7 mEq/L (3.5-4.5)
[2016-12-04 12:52] LABS: Bilirubin,Urine Negative (Negative); Blood,Urine Large (Negative); Clarity,Urine Cloudy (Clear); Color,Urine Yellow (Yellow); Glucose,Urine (UA) >=1000 mg/dL (Normal); Ketones,Urine Negative (Negative); Leukocyte Esterase,Urine Small (Negative); Nitrite,Urine Negative (Negative); PH,Urine 5.5 pH Units (5.0-8.0); Protein,Urine 100 mg/dL (Neg-Trace); Urobilinogen,Urine Normal (Normal)
[2016-12-04] MEDS ORDERED: Piperacillin/Tazobactam 3.375 GM in D5% in Water (Mini-Bag+) 100 ML IVPB ONE (12:52)
[2016-12-04 13:03] LABS: Bacteria,Urine Few per hpf (None-Few); Mucus,Urine Moderate (Few); Squamous Epithelial Cell,Urine Moderate per lpf (None-Few); WBC,Urine TNTC per hpf (0-3); Yeast,Urine Many per hpf (None Seen)
[2016-12-04] MEDS ORDERED: *HR* Dextrose 50 % in Water (Syg) 50 ML SYRINGE IVP PRN (14:45)
[2016-12-04] MEDS ORDERED: *HR* OxyCODONE Immed Rel 5 MG TABLET PO PRN (14:45)
[2016-12-04] MEDS ORDERED: Ondansetron 4 MG/2 ML VIAL IVP PRN (14:45)
[2016-12-04] MEDS ORDERED: D5% in Water 1,000 ML IV PRN (14:45)
[2016-12-04] MEDS ORDERED: Dextrose Gel 15 GM PO PRN ×2 (14:45)
[2016-12-04] MEDS ORDERED: Naloxone 0.4 MG/ML INJ IVP PRN (14:45)
[2016-12-04] MEDS: 0.9 % Sodium Chloride 1,000 ML IVC SCH (15:31)
[2016-12-04] MEDS: Insulin LISPRO 300 UNITS/3 ML VIAL SQ SCH ×2 (17:39→21:50)
[2016-12-04] MEDS ORDERED: NON-FORMULARY MEDICATION 1 EACH EACH (Insulin Glargine [Lantus] 30 UNIT) SQ SCH (18:00)
[2016-12-04] MEDS: MetroNIDAZOLE 500 MG TABLET PO SCH (21:43)
[2016-12-04] MEDS: Piperacillin/Tazobactam 3.375 GM in D5% in Water (Mini-Bag+) 100 ML IVPB SCH (21:43)
[2016-12-04] MEDS: Insulin DETEMIR 100 UNIT/ML X5UNITS SQ SCH (21:50)
[2016-12-05] MEDS: 0.9 % Sodium Chloride 1,000 ML IVC SCH (04:24)
[2016-12-05] MEDS: Piperacillin/Tazobactam 3.375 GM in D5% in Water (Mini-Bag+) 100 ML IVPB SCH ×3 (06:00→20:37)
[2016-12-05] MEDS: Insulin LISPRO 300 UNITS/3 ML VIAL SQ SCH ×4 (08:07→21:21)
[2016-12-05] MEDS: *HR* Promethazine 25 MG/ML VIAL IVP PRN (09:01)
[2016-12-05] MEDS: MetroNIDAZOLE 500 MG TABLET PO SCH ×3 (09:01→20:37)
[2016-12-05 10:33] LABS: Calcium 8.6 mg/dL (8.6-10.8); Potassium 4.9 mEq/L (3.5-4.5)
--- NOTE | 2016-12-05 12:21 | Internal Med History&Physical ---
Date of Encounter: 12/05/16 Time of Encounter: 11:45 Assessment and Plan (1) Pneumonia Current visit: Yes Status: Acute She has been started on IV Zosyn. I will add lactobacillus. Qualifiers: Pneumonia type: due to unspecified organism Laterality: left Lung location: lower lobe of lung Qualified Code(s): J18.1 - Lobar pneumonia, unspecified organism (2) C. difficile diarrhea Current visit: Yes Status: Acute She has been started on oral Flagyl and lactobacillus. (3) Acute on chronic kidney failure Current visit: Yes Status: Acute We will hold Lasix and give IV fluids. Recheck labs in a.m. (4) UTI (urinary tract infection) Current visit: Yes Status: Acute She has been started on IV Zosyn. Qualifiers: Urinary tract infection type: acute cystitis Hematuria presence: without hematuria Qualified Code(s): N30.00 - Acute cystitis without hematuria (5) CKD (chronic kidney disease) stage 4, GFR 15-29 ml/min Current visit: No Status: Chronic Give IV fluids and monitor labs (6) Anemia Current visit: Yes Status: Acute We will check anemia testing in a.m. Qualifiers: Anemia type: unspecified type Qualified Code(s): D64.9 - Anemia, unspecified Internal Medicine - H&P: HPI Chief complaint: Dyspnea, vomiting, diarrhea Admitted From: Home Plans for Post Hospital Care: Home History of present illness: Ms. Mohamud is a 66 year old female who was hospitalized at [facility] November 28 with vomiting and diarrhea felt to be secondary to acute gastroenteritis. The diarrhea resolved during her hospital stay. Her azotemia improved with IV fluids. She was stable for discharge home November 30. She returned to emergency room December 04 complaining of recurrence of diarrhea and continued vomiting. Evaluation showed left lower lobe infiltrate. Stool tested positive for C. difficile. She was admitted to [facility] floor for ongoing care needs. Her GI history is pertinent for GERD but no known disorders of her liver gallbladder or exocrine pancreas. She was treated with Rocephin during her hospital stay but was not discharged home on antibiotics. She had been on Keflex prior to the hospitalization for diagnoses of UTI. Past Med Surg Social Fam HX - Past Medical History Medical history: CHF, coronary artery disease, diabetes, GERD, hyperlipidemia, hypertension, renal disease Psychiatric history: no psych history - Past Surgical History Surgical History: angioplasty/stent, , hysterectomy - Social History Smoking Status: Former smoker Smokeless Tobacco Status: No Alcohol use: none Drug use: none - Family History Mother Family Member Ethnicity: Non- Living Status: Hx Family Cardiac Disorders: Yes Hx Family Respiratory Disorders: No Hx Family Cancer: No Hx Family GI Disorders: No Hx Family Endocrine Disorder: Yes (DM) Hx Family Neuromuscular Disorders: No Hx Family Neurologic Disorders: No Hx Family HEENT Disorders: No Hx Family Autoimmune Disorders: No Father Family Member Ethnicity: Non- Living Status: Hx Family Cardiac Disorders: Yes Hx Family Respiratory Disorders: No Hx Family Cancer: No Hx Family GI Disorders: No Hx Family Endocrine Disorder: No Hx Family Neuromuscular Disorders: No Hx Family Neurologic Disorders: No Hx Family HEENT Disorders: No Hx Family Autoimmune Disorders: No Internal Medicine - H&P: Meds OxyCODONE Immed Rel [Roxicodone 5 MG] 5 mg PO Q4HR PRN #40 tablet 09/07/15 [Rx] Insulin Glargine [Lantus] 30 unit QPM 11/21/16 [History] Furosemide [Lasix] 40 mg PO DAILY 365 Days 11/30/16 [Rx] Metoclopramide [Reglan] 5 mg PO BIDWM #60 tablet 11/30/16 [Rx] Ondansetron HCl [Zofran] 4 mg PO Q4H PRN #20 tablet 11/30/16 [Rx] Simvastatin [Zocor] 10 mg PO HS tablet 11/30/16 [Rx] Allergies Sulfa (Sulfonamide Antibiotics) Allergy (Verified 12/04/16 11:50) Hives acetaminophen [From Tylenol] Adverse Reaction (Verified 12/04/16 11:50) Anaphylaxis gabapentin [From Neurontin] Adverse Reaction (Verified 12/04/16 11:50) Hallucinating hydrocodone Adverse Reaction (Verified 12/04/16 11:50) Hives ibuprofen Adverse Reaction (Verified 12/04/16 11:50) Hives All Systems PM: A 10-system review of systems was performed and is negative for pertinent findings except as documented above in the HPI. Review of systems: Review of systems from her recent [facility] were reviewed and revised as below. General: Her weight had decreased approximately 20 pounds since the September 2014 [facility] hospitalization for admission 11/27/2016. Weight is increased from 68.039 kg at her discharge 12/04/2016 to 77.593 kg today. Cardiovascular: She has known ASHD with stents placed in 2004 and 2005. There was no preceding ID. Her last cath was 2005 at the time of stent placement. She had an exercise stress test in 2012 which she reports was negative. She denies DVT pulmonary emboli hypertension or heart failure Respiratory: She smoked for approximately 4 years in her early 20s but has no known chronic lung disease. She does not wear home oxygen and does not recall being tested for sleep apnea GI: As per history of present illness : No history of hematuria dysuria or kidney stones. She has CKD stage III Neurologic: She denies large distribution strokes or seizures. 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 She has hyperlipidemia but no known thyroid disease Hematology/oncology: She denies blood disorders cancers or anemia Psychiatric: She denies anxiety depression or other mental health issues Musk skeletal: She denies arthritis or osteoporosis or gout. She did have elevated uric acid level at 8.0 on 02/13/2016. She has had right great toe amputation in the distant past - Constitutional Vitals: Temp Pulse Resp BP Pulse Ox 99.8 F H 104 18 129/84 96 12/05/16 08:00 12/05/16 08:00 12/05/16 08:00 12/05/16 08:00 12/05/16 08:00 Exam: General: She is a well-developed well-nourished female lying in bed who appears in no severe distress. HEENT: Head is atraumatic and normocephalic. Eyes: The left eye shows clouded cornea and atrophy overall. The right eye appears normal. There is no scleral icterus. Mouth: Mucosa is moist Neck: Supple and nontender. There is no thyromegaly or adenopathy noted. Heart: Regular without murmurs Or Ectopics Lungs: No Wheezes or Crackles Are [place] . Abdomen: The Abdomen Is Soft. No Masses or Guarding Are Noted. Extremities: There Is No Cyanosis Edema or Clubbing Noted. Dorsalis Pedis and Posterior Tibial Pulses Are Trace Palpable Bilaterally. Neurologic: Mental Status: She is lethargic but answers occasional questions. Cranial nerves: Smile is symmetric. Forehead wrinkles bilaterally. Tongue protrudes midline. EOMI. Motor: She has no pronator drift. Cerebellar: Finger to nose intact bilaterally. Skin: Warm and dry. Internal Med - H&P Results - Labs CBC & Chem 7: 12/04/16 12:06 12/05/16 07:15 Labs: BMP 12/05/16 07:15 Sodium 138 Potassium 4.9 H Chloride 107 Carbon Dioxide 21 BUN 34 H Creatinine 1.88 H Glucose 69 L Calcium 8.6 - VTE Documentation of Mechanical Device: Graduated compression elastic hosiery
[2016-12-05] MEDS: Ondansetron 4 MG/2 ML VIAL IVP SCH ×3 (14:00→20:36)
[2016-12-05] MEDS: Lactobacillus 1 EACH CAP.SPRINK PO SCH ×2 (14:00→20:37)
[2016-12-05] MEDS: Insulin DETEMIR 100 UNIT/ML X5UNITS SQ SCH (21:21)
[2016-12-06] MEDS: Ondansetron 4 MG/2 ML VIAL IVP SCH ×4 (00:16→12:55)
[2016-12-06] MEDS: Piperacillin/Tazobactam 3.375 GM in D5% in Water (Mini-Bag+) 100 ML IVPB SCH (04:43)
[2016-12-06] MEDS: *HR* Promethazine 25 MG/ML VIAL IVP PRN (04:43)
[2016-12-06 06:19] LABS: Basophils % 0.1 %; Hematocrit 25.4 % (35.3-44.9); Immature Granulocytes % 0.3 % (0-4); Lymphocytes % 8.7 %; Mean Corpuscular HGB Conc 31.5 g/dL (31.6-35.5); Mean Corpuscular Hemoglobin 29.5 pg (28.0-33.3); Mean Corpuscular Volume 93.7 fL (83.0-100.0); Mean Platelet Volume 11.1 fL (9.4-12.4); Monocytes # 0.3 K/mcL (0.0-1.3); Monocytes % 2.9 %; Neutrophils # 9.8 K/mcL (1.6-8.9); Platelet Count 209 K/mcL (140-400); Red Blood Count 2.71 M/mcL (3.82-4.97); Red Cell Distribution Width 13.2 % (11.5-14.5)
[2016-12-06 06:39] LABS: Calcium 8.1 mg/dL (8.6-10.8); Potassium 3.4 mEq/L (3.5-4.5)
[2016-12-06] MEDS: Lactobacillus 1 EACH CAP.SPRINK PO SCH ×2 (09:35→23:29)
[2016-12-06] MEDS: MetroNIDAZOLE 500 MG TABLET PO SCH ×3 (09:35→23:29)
[2016-12-06] MEDS: Insulin LISPRO 300 UNITS/3 ML VIAL SQ SCH ×3 (09:41→18:22)
--- NOTE | 2016-12-06 11:26 | Internal Med Progress Note ---
Date of Encounter: 12/06/16 Time of Encounter: 11:15 - Assessment and plan (1) Pneumonia Current Visit: Yes Status: Acute Assessment and plan: December 06. Will stop IV Zosyn since temperature spiked to 104 last evening. Continue Flagyl for now. Qualifiers: Pneumonia type: due to unspecified organism Laterality: left Lung location: lower lobe of lung Qualified Code(s): J18.1 - Lobar pneumonia, unspecified organism (2) C. difficile diarrhea Current Visit: Yes Status: Acute Assessment and plan: December 06. Continue Flagyl and lactobacillus. Recheck labs in a.m. (3) Acute on chronic kidney failure Current Visit: Yes Status: Acute Assessment and plan: December 06. Continue IV fluids. Recheck labs in a.m. (4) UTI (urinary tract infection) Current Visit: Yes Status: Acute Assessment and plan: December 06. Urine culture was negative. We will discontinue Zosyn. Qualifiers: Urinary tract infection type: acute cystitis Hematuria presence: without hematuria Qualified Code(s): N30.00 - Acute cystitis without hematuria (5) CKD (chronic kidney disease) stage 4, GFR 15-29 ml/min Current Visit: No Status: Chronic Assessment and plan: December 06. Continue IV fluids and recheck labs in a.m. (6) Anemia Current Visit: Yes Status: Acute Assessment and plan: December 06. Anemia testing is pending Qualifiers: Anemia type: unspecified type Qualified Code(s): D64.9 - Anemia, unspecified - Subjective Interval history: December 06. She has no new complaints and feels slightly better. She has had dry heaves but no significant vomiting in the last 24 hours. She still has diarrhea. - Constitutional Vitals: Temp Pulse Resp BP Pulse Ox 98.1 F 91 16 142/61 94 L 12/06/16 07:09 12/06/16 07:09 12/06/16 07:09 12/06/16 07:09 12/06/16 07:09 Exam: She is much more awake and talkative today. Her affect is bright and cheerful. I reviewed her medications and lab results. Internal Medicine: Result - Labs CBC & Chem 7: 12/06/16 05:42 12/06/16 05:42 Labs: Short CBC 12/06/16 Range/Units 05:42 WBC 11.1 (4.3-11.1) K/mcL Hgb 8.0 L (11.5-15.4) g/dL Hct 25.4 L (35.3-44.9) % Plt Count 209 (140-400) K/mcL Neutrophils # 9.8 H (1.6-8.9) K/mcL BMP 12/06/16 05:42 Sodium 138 Potassium 3.4 L D Chloride 107 Carbon Dioxide 17 L BUN 36 H Creatinine 2.23 H Glucose 146 H Calcium 8.1 L - VTE Documentation of Mechanical Device: Graduated compression elastic hosiery Consult Discharge Plan - Plan Referrals: Veronica Carr, [employer] [Primary Care Provider] - 1 week
[2016-12-06] MEDS ORDERED: D5% in 0.45% NACL w KCl 20 MEQ/1,000 ML MLS IVC SCH (11:30)
[2016-12-06 13:07] LABS: % Iron Saturation 7 % (15-50); Iron 11 mcg/dL (50-170); Transferrin 120 mg/dL (180-382)
[2016-12-06 13:15] LABS: Ferritin 815 ng/ml (5-204)
[2016-12-06 13:37] LABS: Folate 14.5 ng/mL (7.0-31.4)
[2016-12-06] MEDS: Insulin DETEMIR 100 UNIT/ML X5UNITS SQ SCH (23:29)
[2016-12-07] MEDS: Insulin LISPRO 300 UNITS/3 ML VIAL SQ SCH ×5 (01:05→22:56)
[2016-12-07 05:06] LABS: Basophils % 0.1 %; Eosinophils # 0.2 K/mcL (0.0-0.6); Eosinophils % 2.6 %; Hematocrit 24.1 % (35.3-44.9); Hemoglobin 7.7 g/dL (11.5-15.4); Immature Granulocytes % 0.5 % (0-4); Lymphocytes % 11.1 %; Mean Corpuscular Hemoglobin 29.5 pg (28.0-33.3); Mean Corpuscular Volume 92.3 fL (83.0-100.0); Mean Platelet Volume 11.1 fL (9.4-12.4); Monocytes # 0.3 K/mcL (0.0-1.3); Neutrophils # 7.2 K/mcL (1.6-8.9); Platelet Count 197 K/mcL (140-400); Red Blood Count 2.61 M/mcL (3.82-4.97); Red Cell Distribution Width 13.2 % (11.5-14.5); Segmented Neutrophils % 82.7 %
[2016-12-07 05:23] LABS: Magnesium 1.6 mg/dL (1.6-2.6); Potassium 3.1 mEq/L (3.5-4.5)
--- NOTE | 2016-12-07 09:25 | Internal Med Progress Note ---
Date of Encounter: 12/07/16 Time of Encounter: 09:15 - Assessment and plan (1) Pneumonia Current Visit: Yes Status: Acute Assessment and plan: December 06. Will stop IV Zosyn since temperature spiked to 104 last evening. Continue Flagyl for now. December 07. Remain off Zosyn. Continue Flagyl Qualifiers: Pneumonia type: due to unspecified organism Laterality: left Lung location: lower lobe of lung Qualified Code(s): J18.1 - Lobar pneumonia, unspecified organism (2) C. difficile diarrhea Current Visit: Yes Status: Acute Assessment and plan: December 06. Continue Flagyl and lactobacillus. Recheck labs in a.m. December 07. Continue Flagyl and lactobacillus (3) Acute on chronic kidney failure Current Visit: Yes Status: Acute Assessment and plan: December 06. Continue IV fluids. Recheck labs in a.m. December 07. Her IV became dislodged and could not be restarted. We will leave out for now and recheck labs in a.m. (4) UTI (urinary tract infection) Current Visit: Yes Status: Acute Assessment and plan: December 06. Urine culture was negative. We will discontinue Zosyn. December 07. Remain off antibiotics Qualifiers: Urinary tract infection type: acute cystitis Hematuria presence: without hematuria Qualified Code(s): N30.00 - Acute cystitis without hematuria (5) CKD (chronic kidney disease) stage 4, GFR 15-29 ml/min Current Visit: No Status: Chronic Assessment and plan: December 06. Continue IV fluids and recheck labs in a.m. (6) Anemia Current Visit: Yes Status: Acute Assessment and plan: December 06. Anemia testing is pending December 07. Anemia testing showed no factor deficiency. Qualifiers: Anemia type: unspecified type Qualified Code(s): D64.9 - Anemia, unspecified - Subjective Interval history: December 06. She has no new complaints and feels slightly better. She has had dry heaves but no significant vomiting in the last 24 hours. She still has diarrhea. December 07. She complains of some left lower quadrant discomfort. She still having diarrhea and feeling nauseated. - Constitutional Vitals: Temp Pulse Resp BP Pulse Ox 98.4 F 77 16 113/37 95 12/07/16 06:58 12/07/16 06:58 12/07/16 06:58 12/07/16 06:58 12/07/16 06:58 Exam: She is lying in bed and appears in minimal distress at present time. Her affect is bright and cheerful. I reviewed her vitals, labs and medications. Internal Medicine: Result - Labs CBC & Chem 7: 12/07/16 04:20 12/07/16 04:20 Labs: Short CBC 12/07/16 Range/Units 04:20 WBC 8.7 (4.3-11.1) K/mcL Hgb 7.7 L (11.5-15.4) g/dL Hct 24.1 L (35.3-44.9) % Plt Count 197 (140-400) K/mcL Neutrophils # 7.2 (1.6-8.9) K/mcL BMP 12/07/16 04:20 Sodium 136 Potassium 3.1 L Chloride 107 Carbon Dioxide 18 L BUN 39 H Creatinine 2.58 H Glucose 194 H Calcium 8.0 L - VTE Documentation of Mechanical Device: Graduated compression elastic hosiery Consult Discharge Plan - Plan Referrals: Veronica Carr, FUNDRAISING DIRECTOR [Primary Care Provider] - 1 week
[2016-12-07] MEDS: Lactobacillus 1 EACH CAP.SPRINK PO SCH ×2 (10:08→22:55)
[2016-12-07] MEDS: MetroNIDAZOLE 500 MG TABLET PO SCH ×3 (10:08→22:55)
[2016-12-07] MEDS: Insulin DETEMIR 100 UNIT/ML X5UNITS SQ SCH (22:57)
[2016-12-08 05:55] LABS: Basophils % 0.2 %; Eosinophils # 0.3 K/mcL (0.0-0.6); Eosinophils % 5.2 %; Hematocrit 24.7 % (35.3-44.9); Hemoglobin 7.7 g/dL (11.5-15.4); Immature Granulocytes % 0.3 % (0-4); Lymphocytes # 1.2 K/mcL (0.6-4.6); Lymphocytes % 19.4 %; Mean Corpuscular HGB Conc 31.2 g/dL (31.6-35.5); Mean Corpuscular Hemoglobin 29.3 pg (28.0-33.3); Mean Corpuscular Volume 93.9 fL (83.0-100.0); Mean Platelet Volume 10.9 fL (9.4-12.4); Monocytes # 0.3 K/mcL (0.0-1.3); Monocytes % 5.4 %; Neutrophils # 4.1 K/mcL (1.6-8.9); Platelet Count 200 K/mcL (140-400); Red Blood Count 2.63 M/mcL (3.82-4.97); Red Cell Distribution Width 13.2 % (11.5-14.5); Segmented Neutrophils % 69.5 %
[2016-12-08 06:01] LABS: Calcium 8.2 mg/dL (8.6-10.8); Potassium 4.4 mEq/L (3.5-4.5)
[2016-12-08] MEDS: Insulin LISPRO 300 UNITS/3 ML VIAL SQ SCH ×4 (08:13→23:22)
[2016-12-08] MEDS: Lactobacillus 1 EACH CAP.SPRINK PO SCH ×2 (08:43→23:19)
[2016-12-08] MEDS: MetroNIDAZOLE 500 MG TABLET PO SCH ×3 (08:44→23:20)
--- NOTE | 2016-12-08 09:06 | Internal Med Progress Note ---
Date of Encounter: 12/08/16 Time of Encounter: 08:55 - Assessment and plan (1) Pneumonia Current Visit: Yes Status: Acute Assessment and plan: December 06. Will stop IV Zosyn since temperature spiked to 104 last evening. Continue Flagyl for now. December 07. Remain off Zosyn. Continue Flagyl Qualifiers: Pneumonia type: due to unspecified organism Laterality: left Lung location: lower lobe of lung Qualified Code(s): J18.1 - Lobar pneumonia, unspecified organism (2) C. difficile diarrhea Current Visit: Yes Status: Acute Assessment and plan: December 06. Continue Flagyl and lactobacillus. Recheck labs in a.m. December 07. Continue Flagyl and lactobacillus (3) Acute on chronic kidney failure Current Visit: Yes Status: Acute Assessment and plan: December 06. Continue IV fluids. Recheck labs in a.m. December 07. Her IV became dislodged and could not be restarted. We will leave out for now and recheck labs in a.m. December 08. Renal indices are stable. (4) UTI (urinary tract infection) Current Visit: Yes Status: Acute Assessment and plan: December 06. Urine culture was negative. We will discontinue Zosyn. December 07. Remain off antibiotics Qualifiers: Urinary tract infection type: acute cystitis Hematuria presence: without hematuria Qualified Code(s): N30.00 - Acute cystitis without hematuria (5) CKD (chronic kidney disease) stage 4, GFR 15-29 ml/min Current Visit: No Status: Chronic Assessment and plan: December 06. Continue IV fluids and recheck labs in a.m. December 08. Renal indices are stable (6) Anemia Current Visit: Yes Status: Acute Assessment and plan: December 06. Anemia testing is pending December 07. Anemia testing showed no factor deficiency. Qualifiers: Anemia type: unspecified type Qualified Code(s): D64.9 - Anemia, unspecified - Subjective Interval history: December 06. She has no new complaints and feels slightly better. She has had dry heaves but no significant vomiting in the last 24 hours. She still has diarrhea. December 07. She complains of some left lower quadrant discomfort. She still having diarrhea and feeling nauseated. December 08. She denies significant pain or dyspnea. She still having diarrhea and occasional vomiting. She states her mouth is "broken out" - Constitutional Vitals: Temp Pulse Resp BP Pulse Ox 99.1 F 77 16 103/52 96 12/08/16 07:14 12/08/16 07:14 12/08/16 07:14 12/08/16 07:14 12/08/16 07:14 Exam: She appears in no significant distress. I do not see any significant abnormalities of her oral mucosa. Her affect is bright and cheerful. I reviewed her medications and lab results Internal Medicine: Result - Labs CBC & Chem 7: 12/08/16 04:40 12/08/16 04:40 Labs: Short CBC 12/08/16 Range/Units 04:40 WBC 5.9 (4.3-11.1) K/mcL Hgb 7.7 L (11.5-15.4) g/dL Hct 24.7 L (35.3-44.9) % Plt Count 200 (140-400) K/mcL Neutrophils # 4.1 (1.6-8.9) K/mcL BMP 12/08/16 04:40 Sodium 140 Potassium 4.4 D Chloride 109 Carbon Dioxide 20 BUN 39 H Creatinine 2.61 H Glucose 198 H Calcium 8.2 L - VTE Documentation of Mechanical Device: Graduated compression elastic hosiery Consult Discharge Plan - Plan Referrals: Veronica Carr, WORM SORTER [Primary Care Provider] - 1 week
[2016-12-08] MEDS ORDERED: Ondansetron ODT 4 MG TAB.RAPDIS SL PRN (09:08)
[2016-12-08] MEDS: Metoclopramide 10 MG/10 ML UD.LIQ PO SCH ×2 (11:36→17:23)
[2016-12-08] MEDS: Nystatin SUSP 5 ML UD.LIQ PO SCH ×4 (11:37→23:21)
[2016-12-08] MEDS: Ondansetron 4 MG/2 ML VIAL IVP SCH (17:35)
[2016-12-08] MEDS: 0.9 % Sodium Chloride 1,000 ML IVC SCH (17:36)
[2016-12-08] MEDS: Insulin DETEMIR 100 UNIT/ML X5UNITS SQ SCH (23:21)
[2016-12-09 07:05] VITALS: BP 141/72
[2016-12-09] MEDS: Lactobacillus 1 EACH CAP.SPRINK PO SCH (08:16)
[2016-12-09] MEDS: MetroNIDAZOLE 500 MG TABLET PO SCH (08:16)
[2016-12-09] MEDS: Metoclopramide 10 MG/10 ML UD.LIQ PO SCH (08:16)
[2016-12-09] MEDS: Nystatin SUSP 5 ML UD.LIQ PO SCH (08:17)
[2016-12-09] MEDS: Insulin LISPRO 300 UNITS/3 ML VIAL SQ SCH (08:17)
--- NOTE | 2016-12-09 10:19 | Discharge Summary ---
Date of Encounter: 12/09/16 Time of Encounter: 10:10 - Discharge Diagnosis (1) Pneumonia Priority: Primary Status: Acute Qualifiers: Pneumonia type: due to unspecified organism Laterality: left Lung location: lower lobe of lung Qualified Code(s): J18.1 - Lobar pneumonia, unspecified organism (2) C. difficile diarrhea Priority: Secondary Status: Acute (3) Acute on chronic kidney failure Priority: Secondary Status: Acute (4) UTI (urinary tract infection) Priority: Secondary Status: Acute Qualifiers: Urinary tract infection type: acute cystitis Hematuria presence: without hematuria Qualified Code(s): N30.00 - Acute cystitis without hematuria (5) CKD (chronic kidney disease) stage 4, GFR 15-29 ml/min Priority: Secondary Status: Chronic (6) Anemia Priority: Secondary Status: Chronic Qualifiers: Anemia type: unspecified type Qualified Code(s): D64.9 - Anemia, unspecified - Discharge Medications Prescriptions: Lactobacillus [Culturelle] 1 each PO BID #14 cap.sprink MetroNIDAZOLE [Flagyl] 500 mg PO TID #21 tablet Nystatin [Nystatin Suspension] 500,000 units PO QID #120 ml Ondansetron HCl [Zofran] 4 mg PO Q4H PRN #20 tablet PRN Reason: Nausea Home Medications: OxyCODONE Immed Rel [Roxicodone 5 MG] 5 mg PO Q4HR PRN #40 tablet 09/07/15 [Rx] Insulin Glargine [Lantus] 30 unit QPM 11/21/16 [History] Furosemide [Lasix] 40 mg PO DAILY 365 Days 11/30/16 [Rx] Metoclopramide [Reglan] 5 mg PO BIDWM #60 tablet 11/30/16 [Rx] Simvastatin [Zocor] 10 mg PO HS tablet 11/30/16 [Rx] Lactobacillus [Culturelle] 1 each PO BID #14 cap.sprink 12/09/16 [Rx] MetroNIDAZOLE [Flagyl] 500 mg PO TID #21 tablet 12/09/16 [Rx] Nystatin [Nystatin Suspension] 500,000 units PO QID #120 ml 12/09/16 [Rx] Ondansetron HCl [Zofran] 4 mg PO Q4H PRN #20 tablet 12/09/16 [Rx] Allergies/Adverse Reactions: Allergies Sulfa (Sulfonamide Antibiotics) Allergy (Verified 12/04/16 11:50) Hives acetaminophen [From Tylenol] Adverse Reaction (Verified 12/04/16 11:50) Anaphylaxis gabapentin [From Neurontin] Adverse Reaction (Verified 12/04/16 11:50) Hallucinating hydrocodone Adverse Reaction (Verified 12/04/16 11:50) Hives ibuprofen Adverse Reaction (Verified 12/04/16 11:50) Hives Date of admission: 12/04/16 16:48 Primary care physician: Veronica Carr CNP - Patient Status Disposition: Home, Self-Care Overall status at discharge: patient is progressing back to baseline - Discharge Instructions Follow Up With: Veronica Carr CNP [Primary Care Provider] - 1 week - Diet and Activity Activity: resume usual activities as tolerated Diet: advance to your usual diet Hospital course: Ms. Mohamud is a 66 year old female who was hospitalized at [facility] November 28 with vomiting and diarrhea felt to be secondary to acute gastroenteritis. The diarrhea resolved during her hospital stay. Her azotemia improved with IV fluids. She was stable for discharge home November 30. She returned to emergency room December 04 complaining of recurrence of diarrhea and continued vomiting. Evaluation showed left lower lobe infiltrate. Stool tested positive for C. difficile. She was admitted to [facility] floor for ongoing care needs. Initial orders were written by the emergency room physician. I saw her on December 05 and performed history and physical. She was ordered IV Zosyn by emergency room for treatment of pneumonia and possible UTI. She spiked fever of 104 the evening of December 05 so Zosyn was discontinued. She was started on Flagyl for stool positive for C. difficile. She maintained afebrile after the first hospital day. Her diarrhea gradually lessened. She was started on Zofran for nausea and scheduled Reglan 5 mg twice a day for vomiting and possible diabetic gastroparesis. She felt improved on December 09 and stable for discharge home. She will follow with her PCP within one week. She will continue with oral Flagyl for 7 additional days after discharge. - Time Spent with Patient Total time spent providing and/or coordinating discharge services: - Constitutional Vitals: Temp Pulse Resp BP Pulse Ox 98.8 F 88 18 141/72 98 12/09/16 06:59 12/09/16 06:59 12/09/16 06:59 12/09/16 06:59 12/09/16 09:52 - VTE Documentation of Mechanical Device: Graduated compression elastic hosiery
== END 2016-12-09 11:32 | disposition home or self-care (01) | DRG 248 ==
LOC: EMEROOPIK 11:47 → INPPIK 11:47
PROVIDERS: ADMIT Internal Medicine; ATTEND Internal Medicine

== ENCOUNTER 2017-02-02 16:32 | Observation (INO) ==
[2017-02-02] MEDS ORDERED: Ondansetron 4 MG/2 ML VIAL IVP ONE (16:40)
[2017-02-02] MEDS ORDERED: 0.9 % Sodium Chloride 1,000 ML IVC ONE (16:40)
--- NOTE | 2017-02-02 16:45 | Emergency Department Note ---
Disposition Clinical Impression: Gastroenteritis, Weakness, Near syncope UTI (urinary tract infection) Qualifiers: Urinary tract infection type: acute cystitis Hematuria presence: without hematuria Qualified Code(s): N30.00 - Acute cystitis without hematuria Disposition: Admitted As Inpatient Condition: Fair Abdominal Pain HPI - General Chief Complaint: ED Nausea/Vomiting/Diarrhea Stated Complaint: vomiting/diarrhea since Nov Time Seen by Provider: 02/02/17 16:39 Source: patient, EMS Mode of arrival: EMS Limitations: no limitations Nursing Notes Reviewed: Yes Vital Signs Reviewed: Yes - History of Present Illness HPI Narrative: Patient received she was admitted in November with some vomiting and diarrhea. She is continued with frequent vomiting and diarrhea presents. She relates some days she will vomit about every hour and is vomited about 2 times today. She states she has diarrhea shortly after and has been passing stool about every hour. She states she has been wearing plops because she is not able to control her bowels. She denies any bloody or black stools or any bloody emesis. The squad was called today because she felt lightheaded and felt that she is cannot pass out while she was trying to get to the bathroom with her walker. I will sustain any injury. She denies that she has been having fevers or chills. She does report that she has had some diffuse mid abdominal pain and "heartburn". She states she occasionally has some abdominal pains that feel like . She states her heartburn feeling is relatively chronic. She has not been having diaphoresis. She does report some occasional chest pains independent from her burning discomfort. She states she had a midsternal chest pain 3 days ago for which he took some aspirin with relief. She has not been having midsternal chest pain since. She denies jaw, arm or back pain. She has been having some burning about a week without frequency or urgency. She reports that she has had abdominal surgeries including a hysterectomy. Pt Subjective Complaint: abdominal pain Onset (ago): month(s) Consistency: intermittent, Worsening Location: diffuse Pain Severity: moderate Quality: fullness, burning Radiation: none Migration to: no migration Improves with: nothing Worsens with: eating Context: history of similar episodes Associated symptoms: Reports: nausea, vomiting, diarrhea, dysuria. Denies: fever, chills, constipation, hematemesis, hematochezia, melena, hematuria, anorexia, syncope Treatments prior to arrival: none - Related Data Home Medications Medication Instructions Recorded Confirmed Insulin Glargine [Lantus] 30 unit QPM 11/21/16 02/02/17 Promethazine [Phenergan] 25 mg PO Q12H PRN 02/02/17 02/02/17 Previous Rx's Medication Instructions Recorded OxyCODONE Immed Rel [Roxicodone 5 5 mg PO Q4HR PRN #40 tablet 09/07/15 MG] Furosemide [Lasix] 40 mg PO DAILY 365 Days 11/30/16 Metoclopramide [Reglan] 5 mg PO BIDWM #60 tablet 11/30/16 Simvastatin [Zocor] 10 mg PO HS tablet 11/30/16 Allergies Allergy/AdvReac Type Severity Reaction Status Date / Time Sulfa (Sulfonamide Allergy Hives Verified 02/02/17 17:00 Antibiotics) acetaminophen [From Tylenol] AdvReac Anaphylaxis Verified 02/02/17 17:00 gabapentin [From Neurontin] AdvReac Hallucinati Verified 02/02/17 17:00 ng hydrocodone AdvReac Hives Verified 02/02/17 17:00 ibuprofen AdvReac Hives Verified 02/02/17 17:00 All systems ED: reviewed and negative except as stated. Abdominal Pain PMH - Past Medical History Medical history: Reports: CHF, coronary artery disease, diabetes, GERD, hyperlipidemia, hypertension, renal disease Female Surgical History: Reports: angioplasty/stent, , hysterectomy, other (Left eye surgery) SENIOR BUSINESS ARCHITECT history: Reports: other Psychiatric history: Reports: no psych history - Social History Smoking status: Former smoker Alcohol use: Reports: none Drug use: Reports: none Physical Exam - General Limitations: no limitations General appearance: alert, in no apparent distress - Head Head exam: atraumatic, normocephalic, normal inspection - Eye Eye exam: Present: normal appearance. Absent: conjunctival injection - ENT ENT exam: normal exam, normal oropharynx, mucous membranes moist - Neck Neck exam: Present: normal inspection, full ROM, trachea midline - Chest Chest inspection: Present: normal inspection, symmetric chest wall rise - Respiratory Respiratory exam: Present: normal lung sounds bilaterally. Absent: respiratory distress, wheezes, prolonged expiratory phase - Cardiovascular Cardiovascular exam: Present: regular rate, normal rhythm, normal heart sounds. Absent: tachycardia - Abdominal Exam Abdominal exam: Present: soft, normal bowel sounds. Absent: distention, guarding, rebound, rigidity, Thorpe's sign, tenderness at McBurney's Point Abdominal tenderness: Present: diffuse, moderate - Extremities Exam Extremities exam: Present: normal inspection, full ROM, normal capillary refill. Absent: tenderness, pedal edema, calf tenderness - Expanded Lower Extremity Exam Neurovascular/Tendon exam: Present: normal capillary refill. Absent: motor deficit, sensory deficit, tendon deficit Gait: not tested/not observed - Back Exam Back exam: Present: normal inspection, full ROM. Absent: tenderness, CVA tenderness (R), CVA tenderness (L), vertebral tenderness - Neurological Exam Neurological exam: Present: alert, oriented X3 - Psychiatric Psychiatric exam: Present: normal affect, normal mood - Skin Skin exam: Present: warm, dry, intact, pallor. Absent: rash, diaphoresis Course Course Narrative: 1804: All results were discussed with the patient and with Dr. Oliveros. She has been started on Rocephin for the UTI and verbal orders are obtained for her admission to this hospital. Vital Signs Temperature 99 F 02/02/17 16:37 Pulse Rate 86 02/02/17 16:37 Respiratory Rate 17 02/02/17 16:37 Blood Pressure 138/52 02/02/17 16:37 O2 Sat by Pulse Oximetry 98 02/02/17 16:37 Temperature 98.0 F 02/02/17 20:29 Pulse Rate 80 02/02/17 20:29 Respiratory Rate 16 02/02/17 20:29 Blood Pressure 140/72 02/02/17 20:29 O2 Sat by Pulse Oximetry 98 02/02/17 20:29 Oxygen Delivery Oxygen Delivery Room Air Abdominal Pain - Differential Diagnosis Differential Diagnosis: Likely: abdominal pain non-specific, acute appendicitis , diverticulitis, gastroenteritis, pancreatitis - Medical Records Medical records reviewed: Yes I reviewed the patient's medical records. - Lab Data Lab results reviewed: Yes I reviewed the patient's lab results. Result diagrams: 02/02/17 17:00 02/02/17 17:00 Lab Results 02/02/17 02/02/17 02/02/17 Range/Units 16:50 17:00 17:00 WBC 7.3 (4.3-11.1) K/mcL RBC 3.66 L (3.82-4.97) M/mcL Hgb 10.9 L (11.5-15.4) g/dL Hct 32.7 L (35.3-44.9) % MCV 89.3 (83.0-100.0) fL MCH 29.8 (28.0-33.3) pg MCHC 33.3 (31.6-35.5) g/dL RDW 13.3 (11.5-14.5) % Plt Count 237 (140-400) K/mcL MPV 11.0 (9.4-12.4) fL Immature Gran % 0.1 (0-4) % Seg Neutrophils % 70.1 % Lymphocytes % 23.2 % Monocytes % 4.0 % Eosinophils % 2.3 % Basophils % 0.3 % Neutrophils # 5.1 (1.6-8.9) K/mcL Lymphocytes # 1.7 (0.6-4.6) K/mcL Monocytes # 0.3 (0.0-1.3) K/mcL Eosinophils # 0.2 (0.0-0.6) K/mcL Basophils # 0.0 (0.0-0.2) K/mcL PT 10.6 (9.4-12.1) Seconds INR 1.0 APTT 30.4 (26.0-36.0) Seconds Sodium (136-145) mEq/L Potassium (3.5-4.5) mEq/L Chloride (98-109) mEq/L Carbon Dioxide (19-29) mEq/L BUN (7-20) mg/dL Creatinine (0.57-1.11) mg/dL Est GFR ( Amer) (> 60) Est GFR (Non-Af Amer) (> 60) BUN/Creatinine Ratio (6-26) Glucose (70-99) mg/dL Calculated Osmolality (280-300) Calcium (8.6-10.8) mg/dL Total Bilirubin (0.2-1.2) mg/dL Direct Bilirubin (0.0-0.5) mg/dL Indirect Bilirubin (0.0-1.2) mg/dL AST (5-34) Units/L ALT (0-55) Units/L Alkaline Phosphatase (38-126) Units/L Troponin I (0-0.03) ng/mL Serum Total Protein (6.0-8.3) g/dL Albumin (3.5-5.0) g/dL Globulin (2.4-3.5) g/dL Albumin/Globulin Ratio (1.1-2.2) Amylase (25-125) Units/L Lipase (8-78) Units/L Urine Color (Yellow) Urine Clarity (Clear) Urine pH (5.0-8.0) pH Units Ur Specific [place] (1.010-1.025) Urine Protein (Neg-Trace) mg/dL Urine Glucose (UA) (Normal) mg/dL Urine Ketones (Negative) mg/dL Urine Blood (Negative) Urine Nitrite (Negative) Urine Bilirubin (Negative) Urine Urobilinogen (Normal) mg/dL Ur Leukocyte Esterase (Negative) Urine Microscopic RBC (0-3) per hpf Urine Microscopic WBC (0-3) per hpf Ur Squamous Epith Cells (None-Few) per lpf Urine Bacteria (None-Few) per hpf Hyaline Casts (None-Few) per lpf Urine Mucus (Few) Urine Yeast (None Seen) per hpf Ur Culture Indicated? (NO) Stl C. diff Tox B Gene Negative (Negative) 02/02/17 02/02/17 02/02/17 Range/Units 17:00 17:00 17:50 WBC (4.3-11.1) K/mcL RBC (3.82-4.97) M/mcL Hgb (11.5-15.4) g/dL Hct (35.3-44.9) % MCV (83.0-100.0) fL MCH (28.0-33.3) pg MCHC (31.6-35.5) g/dL RDW (11.5-14.5) % Plt Count (140-400) K/mcL MPV (9.4-12.4) fL Immature Gran % (0-4) % Seg Neutrophils % % Lymphocytes % % Monocytes % % Eosinophils % % Basophils % % Neutrophils # (1.6-8.9) K/mcL Lymphocytes # (0.6-4.6) K/mcL Monocytes # (0.0-1.3) K/mcL Eosinophils # (0.0-0.6) K/mcL Basophils # (0.0-0.2) K/mcL PT (9.4-12.1) Seconds INR APTT (26.0-36.0) Seconds Sodium 141 (136-145) mEq/L Potassium 3.5 (3.5-4.5) mEq/L Chloride 106 (98-109) mEq/L Carbon Dioxide 22 (19-29) mEq/L BUN 16 (7-20) mg/dL Creatinine 1.61 H (0.57-1.11) mg/dL Est GFR ( Amer) 39 L (> 60) Est GFR (Non-Af Amer) 32 L (> 60) BUN/Creatinine Ratio 10 (6-26) Glucose 93 (70-99) mg/dL Calculated Osmolality 293 (280-300) Calcium 9.2 (8.6-10.8) mg/dL Total Bilirubin 0.2 (0.2-1.2) mg/dL Direct Bilirubin < 0.1 (0.0-0.5) mg/dL Indirect Bilirubin 0.1 (0.0-1.2) mg/dL AST 11 (5-34) Units/L ALT 9 (0-55) Units/L Alkaline Phosphatase 99 (38-126) Units/L Troponin I 0.01 (0-0.03) ng/mL Serum Total Protein 7.6 (6.0-8.3) g/dL Albumin 3.2 L (3.5-5.0) g/dL Globulin 4.4 H (2.4-3.5) g/dL Albumin/Globulin Ratio 0.7 L (1.1-2.2) Amylase 55 (25-125) Units/L Lipase 81 H (8-78) Units/L Urine Color Yellow (Yellow) Urine Clarity Cloudy A (Clear) Urine pH 5.0 (5.0-8.0) pH Units Ur Specific [place] 1.020 (1.010-1.025) Urine Protein 100 H (Neg-Trace) mg/dL Urine Glucose (UA) >=1000 H (Normal) mg/dL Urine Ketones Negative (Negative) mg/dL Urine Blood Moderate H (Negative) Urine Nitrite Negative (Negative) Urine Bilirubin Negative (Negative) Urine Urobilinogen Normal (Normal) mg/dL Ur Leukocyte Esterase Small H (Negative) Urine Microscopic RBC 15-30 H (0-3) per hpf Urine Microscopic WBC TNTC H (0-3) per hpf Ur Squamous Epith Cells Few (None-Few) per lpf Urine Bacteria Few (None-Few) per hpf Hyaline Casts Few (None-Few) per lpf Urine Mucus Few (Few) Urine Yeast Moderate H (None Seen) per hpf Ur Culture Indicated? YES A (NO) Stl C. diff Tox B Gene (Negative) - Radiology Data Radiology results reviewed: Yes I reviewed the patient's radiology results. CT is performed of the abdomen and pelvis without IV or oral contrast. This does not demonstrate infiltrate, effusion, mass or pneumothorax and the base of the lungs. The liver, spleen and pancreas appear normal. There are some nephroliths without obstruction or dilated ureter. Bowel is without obstruction , perforation or inflammation. Abdominal wall appears to be intact without hernia. No acute process is seen to explain this patient's current abdominal pain, vomiting and diarrhea. This is on my interpretation. Impressions Abdomen/Pelvis CT 02/02/17 16:41 IMPRESSION: No acute abnormality definitively identified on the noncontrast CT. Smooth circumferential wall thickening of the rectum and in the sigmoid colon is nonspecific. No adjacent inflammatory changes. Findings could be due to underdistention. Wall thickening of the urinary bladder. Findings could be due to underdistention. Correlate for signs cystitis. D/ / 02/02/2017 17:36:55 Cleveland Oneil MD / haroon Interpreting Provider: Cleveland Oneil MD - EKG Data EKG attestation: Yes I reviewed and interpreted this EKG. EKG shows normal: sinus rhythm, axis, intervals, QRS complexes, ST-T waves Rate: normal (82) Interpretation: no acute changes, normal EKG
[2017-02-02 17:04] LABS: Basophils % 0.3 %; Eosinophils # 0.2 K/mcL (0.0-0.6); Eosinophils % 2.3 %; Hematocrit 32.7 % (35.3-44.9); Hemoglobin 10.9 g/dL (11.5-15.4); Immature Granulocytes % 0.1 % (0-4); Lymphocytes # 1.7 K/mcL (0.6-4.6); Lymphocytes % 23.2 %; Mean Corpuscular HGB Conc 33.3 g/dL (31.6-35.5); Mean Corpuscular Hemoglobin 29.8 pg (28.0-33.3); Mean Corpuscular Volume 89.3 fL (83.0-100.0); Monocytes # 0.3 K/mcL (0.0-1.3); Neutrophils # 5.1 K/mcL (1.6-8.9); Platelet Count 237 K/mcL (140-400); Red Blood Count 3.66 M/mcL (3.82-4.97); Red Cell Distribution Width 13.3 % (11.5-14.5); Segmented Neutrophils % 70.1 %
[2017-02-02 17:12] LABS: Prothrombin Time 10.6 Seconds (9.4-12.1)
[2017-02-02 17:15] LABS: Activated Partial Thrombo Time 30.4 Seconds (26.0-36.0)
[2017-02-02 17:25] LABS: Alanine Aminotransferase 9 Units/L (0-55); Albumin 3.2 g/dL (3.5-5.0); Albumin/Globulin Ratio 0.7 (1.1-2.2); Alkaline Phosphatase 99 Units/L (38-126); Amylase 55 Units/L (25-125); Aspartate Amino Transferase 11 Units/L (5-34); BUN/Creatinine Ratio 10 (6-26); Bilirubin,Direct < 0.1 mg/dL (0.0-0.5); Bilirubin,Indirect 0.1 mg/dL (0.0-1.2); Bilirubin,Total 0.2 mg/dL (0.2-1.2); Blood Urea Nitrogen 16 mg/dL (7-20); Calcium 9.2 mg/dL (8.6-10.8); Carbon Dioxide 22 mEq/L (19-29); Chloride 106 mEq/L (98-109); Globulin 4.4 g/dL (2.4-3.5); Glucose 93 mg/dL (70-99); Lipase 81 Units/L (8-78); Osmolality,Calculated 293 (280-300); Potassium 3.5 mEq/L (3.5-4.5); Sodium 141 mEq/L (136-145); Total Protein 7.6 g/dL (6.0-8.3); eGFR For African Americans 39 (> 60); eGFR For Non-African Americans 32 (> 60)
[2017-02-02 17:55] LABS: Bilirubin,Urine Negative (Negative); Blood,Urine Moderate (Negative); Clarity,Urine Cloudy (Clear); Color,Urine Yellow (Yellow); Glucose,Urine (UA) >=1000 mg/dL (Normal); Ketones,Urine Negative (Negative); Leukocyte Esterase,Urine Small (Negative); Nitrite,Urine Negative (Negative); Protein,Urine 100 mg/dL (Neg-Trace); Urobilinogen,Urine Normal (Normal)
[2017-02-02 18:02] LABS: Bacteria,Urine Few per hpf (None-Few); Hyaline Casts,Urine Few per lpf (None-Few); Mucus,Urine Few (Few); RBC,Urine 15-30 per hpf (0-3); Squamous Epithelial Cell,Urine Few per lpf (None-Few); WBC,Urine TNTC per hpf (0-3); Yeast,Urine Moderate per hpf (None Seen)
[2017-02-02] MEDS ORDERED: CefTRIAXone 1,000 MG in D5% in Water (Mini-Bag+) 100 ML IVPB ONE (18:02)
[2017-02-02] MEDS ORDERED: Ondansetron 4 MG/2 ML VIAL IVP PRN (20:27)
[2017-02-02] MEDS ORDERED: D5% in Water 1,000 ML IVC PRN (20:27)
[2017-02-02] MEDS ORDERED: Naloxone 0.4 MG/ML INJ IVP PRN (20:27)
[2017-02-02] MEDS ORDERED: Dextrose Gel 15 GM PO PRN ×2 (20:27)
[2017-02-02] MEDS ORDERED: *HR* Dextrose 50 % in Water (Syg) 50 ML SYRINGE IVP PRN (20:27)
[2017-02-02] MEDS: 0.9 % Sodium Chloride 1,000 ML IVC SCH (21:46)
[2017-02-03] MEDS: *HR* OxyCODONE Immed Rel 5 MG TABLET PO PRN (01:55)
[2017-02-03] MEDS: 0.9 % Sodium Chloride 1,000 ML IVC SCH (06:17)
[2017-02-03] MEDS: Pantoprazole 40 MG VIAL IVP SCH (06:17)
[2017-02-03] MEDS: Insulin LISPRO 300 UNITS/3 ML VIAL SQ SCH ×3 (08:24→17:00)
[2017-02-03] MEDS: CefTRIAXone 1,000 MG in D5% in Water (Mini-Bag+) 100 ML IVPB SCH (09:08)
[2017-02-03] MEDS: Furosemide 40 MG TABLET PO SCH (09:08)
--- NOTE | 2017-02-03 10:37 | Internal Med History&Physical ---
Date of Encounter: 02/03/17 Time of Encounter: 10:10 Assessment and Plan (1) Lightheadedness Current visit: Yes Status: Acute Suspect multifactorial etiology. She has been started on IV fluids through the emergency room. We will check orthostatic vital signs in a.m. (2) Diabetes mellitus, insulin dependent (IDDM), uncontrolled Current visit: No Status: Chronic Hemoglobin A1c was greater than 14.1% on 11/29/2016. We will recheck in a.m. Qualifiers: Diabetes mellitus complication status: with kidney complications Diabetes mellitus complication detail: with chronic kidney disease Chronic kidney disease stage: stage 3 (moderate) Qualified Code(s): E10.22 - Type 1 diabetes mellitus with diabetic chronic kidney disease; E10.65 - Type 1 diabetes mellitus with hyperglycemia; N18.3 - Chronic kidney disease, stage 3 (moderate) (3) UTI (urinary tract infection) Current visit: Yes Status: Acute She was started on Rocephin through emergency room. We will add lactobacillus and await urine culture report Qualifiers: Urinary tract infection type: acute cystitis Hematuria presence: without hematuria Qualified Code(s): N30.00 - Acute cystitis without hematuria (4) Anemia Current visit: No Status: Chronic Improved. Continue to monitor CBC. Qualifiers: Anemia type: unspecified type Qualified Code(s): D64.9 - Anemia, unspecified Internal Medicine - H&P: HPI Chief complaint: Lightheaded with vomiting and diarrhea Admitted From: Home Plans for Post Hospital Care: Home History of present illness: Ms. Mohamud is a 66 year old female who came to emergency room stating she had onset of lightheadedness earlier this admission. She describes it as feeling off balance when she walked. She did not have a fall. She does not describe vertigo sensation. Reports she has had intermittent vomiting and diarrhea for the last 2 months. There is been both coffee grounds and bright red blood in the vomitus. She reports dark blood in her stools periodically. She also reports loose watery stools 3-5 times daily. She has had intermittent abdominal pain the past week that occurs on a daily basis. She is evaluated in emergency room and felt to have UTI. She was admitted to [facility] for ongoing care needs. She was hospitalized at [facility] 2 months ago with diagnosis of pneumonia. The week prior to that hospitalization she was hospitalized at [facility] with vomiting and diarrhea felt secondary to acute gastroenteritis. Stool tested positive for C. difficile. She has GERD but no known disorders of her liver gallbladder or exocrine pancreas. She denies EGD or colonoscopy in the past. Past Med Surg Social Fam HX - Past Medical History Medical history: CHF, coronary artery disease, diabetes, GERD, hyperlipidemia, hypertension, renal disease Psychiatric history: no psych history - Past Surgical History Surgical History: angioplasty/stent, , hysterectomy - Social History Smoking Status: Former smoker Smokeless Tobacco Status: No Alcohol use: none Drug use: none - Family History Mother Family Member Ethnicity: Non- Living Status: Hx Family Cardiac Disorders: Yes Hx Family Respiratory Disorders: No Hx Family Cancer: No Hx Family GI Disorders: No Hx Family Endocrine Disorder: Yes (diabetes) Hx Family Neuromuscular Disorders: No Hx Family Neurologic Disorders: No Hx Family HEENT Disorders: No Hx Family Autoimmune Disorders: No Father Family Member Ethnicity: Non- Living Status: Hx Family Cardiac Disorders: Yes (chf) Hx Family Respiratory Disorders: No Hx Family Cancer: No Hx Family GI Disorders: No Hx Family Endocrine Disorder: No Hx Family Neuromuscular Disorders: No Hx Family Neurologic Disorders: No Hx Family HEENT Disorders: No Hx Family Autoimmune Disorders: No Internal Medicine - H&P: Meds OxyCODONE Immed Rel [Roxicodone 5 MG] 5 mg PO Q4HR PRN #40 tablet 09/07/15 [Rx] Insulin Glargine [Lantus] 30 unit QPM 11/21/16 [History] Furosemide [Lasix] 40 mg PO DAILY 365 Days 11/30/16 [Rx] Metoclopramide [Reglan] 5 mg PO BIDWM #60 tablet 11/30/16 [Rx] Simvastatin [Zocor] 10 mg PO HS tablet 11/30/16 [Rx] Promethazine [Phenergan] 25 mg PO Q12H PRN 02/02/17 [History] Allergies Sulfa (Sulfonamide Antibiotics) Allergy (Verified 02/02/17 17:00) Hives acetaminophen [From Tylenol] Adverse Reaction (Verified 02/02/17 17:00) Anaphylaxis gabapentin [From Neurontin] Adverse Reaction (Verified 02/02/17 17:00) Hallucinating hydrocodone Adverse Reaction (Verified 02/02/17 17:00) Hives ibuprofen Adverse Reaction (Verified 02/02/17 17:00) Hives All Systems PM: A 10-system review of systems was performed and is negative for pertinent findings except as documented above in the HPI. Review of systems: Review of systems from her November 2016 [facility] hospitalization were reviewed and revised as below. General: Her weight has decreased from 77.247 kg on 10/27/2015 to 67.585 kg on admission now. Cardiovascular: She has known ASHD with stents placed in 2004 and 2005. There was no preceding WI. Her last cath was 2005 at the time of stent placement. She had an exercise stress test in 2012 which she reports was negative. She denies DVT pulmonary emboli hypertension or heart failure Respiratory: She smoked for approximately 4 years in her early 20s but has no known chronic lung disease. She does not wear home oxygen and does not recall being tested for sleep apnea GI: As per history of present illness : No history of hematuria dysuria or kidney stones. She has CKD stage III Neurologic: She denies large distribution strokes or seizures. 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 She has hyperlipidemia but no known thyroid disease Hematology/oncology: She denies blood disorders or cancers. She had anemia during the November 2016 hospitalization with evaluation showing iron 11, transferrin saturation 7%, ferritin 815, B12 449, and folate 14.5. Psychiatric: She denies anxiety depression or other mental health issues Musk skeletal: She denies arthritis or osteoporosis or gout. She did have elevated uric acid level at 8.0 on 02/13/2016 but it had improved to 6.3 on . She has had right great toe amputation in the distant past - Constitutional Vitals: Temp Pulse Resp BP Pulse Ox 97.7 F 70 16 124/62 98 02/03/17 07:35 02/03/17 07:35 02/03/17 07:35 02/03/17 07:35 02/03/17 07:35 Exam: Gen.: She is a well-developed well-nourished female who appears in no severe distress at present time HEENT: Head is atraumatic normal cephalic. Eyes: She keeps her left eye lid closed. The right eye shows no scleral icterus. EOMI. Mouth: Mucosa is moist. Neck: Supple and nontender. There is no thyromegaly or adenopathy noted. Heart: Regular without murmurs gallops or ectopics Lungs: No wheezes or crackles are heard. Abdomen: Bowel sounds are present. It is soft and minimally tender in the epigastric area to palpation. No masses or guarding are noted. Extremities: There is no cyanosis edema or clubbing noted. Dorsalis pedis and posterior tibial pulses are trace palpable bilaterally. She has amputation of right great toe. Neurologic: Mental status: She is talkative and a good historian. Cranial nerves: Smile is symmetric. Forehead wrinkles bilaterally. Tongue protrudes midline. EOMI. She is hard of hearing. Motor: There is no pronator drift. Cerebellar: Finger to nose is intact bilaterally. Skin: Warm and dry Internal Med - H&P Results - Labs CBC & Chem 7: 02/02/17 17:00 02/02/17 17:00 - VTE Documentation of Mechanical Device: Graduated compression elastic hosiery
[2017-02-03] MEDS ORDERED: Ondansetron 4 MG/2 ML VIAL IVP PRN (10:56)
[2017-02-03] MEDS: 0.45 % Sodium Chloride w/KCl 20 MEQ/1,000 ML MLS IVC SCH (11:42)
[2017-02-03] MEDS ORDERED: Insulin DETEMIR 100 UNIT/ML X5UNITS SQ SCH (18:00)
[2017-02-03] MEDS ORDERED: NON-FORMULARY MEDICATION 1 EACH EACH (Insulin Glargine [Lantus] 30 UNIT) SQ SCH (18:00)
[2017-02-03] MEDS: Lactobacillus 1 EACH CAP.SPRINK PO SCH (20:02)
--- NOTE | 2017-02-03 20:31 | Electrocardiograph Report ---
[address] [address] Test Date: 2017-02-02 Pat Name: Elena Mohamud Department: [id number] Room: [facility] Gender: F Conformal Pad Former: [id number] : 1950 Requested By: Sai Esquivel Order Number: [id number] Reading MD: Manny Castillo MD Measurements Intervals [place] Rate: 82 P: 62 WI: 175 QRS: 4 QRSD: 90 T: 1 QT: 364 QTc: 402 Interpretive Statements SINUS RHYTHM Electronically Signed On 02-03-2017 20:30:33 EDT by Manny Castillo MD
[2017-02-04] MEDS: 0.45 % Sodium Chloride w/KCl 20 MEQ/1,000 ML MLS IVC SCH ×3 (00:30→18:14)
[2017-02-04 05:26] LABS: Basophils % 0.5 %; Eosinophils # 0.2 K/mcL (0.0-0.6); Eosinophils % 3.6 %; Hematocrit 29.3 % (35.3-44.9); Hemoglobin 9.5 g/dL (11.5-15.4); Immature Granulocytes % 0.3 % (0-4); Lymphocytes # 1.6 K/mcL (0.6-4.6); Lymphocytes % 24.8 %; Mean Corpuscular HGB Conc 32.4 g/dL (31.6-35.5); Mean Corpuscular Hemoglobin 29.7 pg (28.0-33.3); Mean Corpuscular Volume 91.6 fL (83.0-100.0); Mean Platelet Volume 11.7 fL (9.4-12.4); Monocytes # 0.4 K/mcL (0.0-1.3); Monocytes % 5.3 %; Neutrophils # 4.3 K/mcL (1.6-8.9); Platelet Count 195 K/mcL (140-400); Red Cell Distribution Width 13.2 % (11.5-14.5); Segmented Neutrophils % 65.5 %
[2017-02-04 05:41] LABS: Magnesium 1.2 mg/dL (1.6-2.6); Potassium 3.6 mEq/L (3.5-4.5)
[2017-02-04] MEDS: Pantoprazole 40 MG VIAL IVP SCH (06:31)
[2017-02-04 08:37] LABS: Hemoglobin A1C 11.1 %
[2017-02-04] MEDS: CefTRIAXone 1,000 MG in D5% in Water (Mini-Bag+) 100 ML IVPB SCH (10:46)
[2017-02-04] MEDS: Furosemide 40 MG TABLET PO SCH (10:48)
[2017-02-04] MEDS: Lactobacillus 1 EACH CAP.SPRINK PO SCH ×2 (10:48→21:46)
[2017-02-04] MEDS: Insulin LISPRO 300 UNITS/3 ML VIAL SQ SCH ×3 (10:49→18:15)
--- NOTE | 2017-02-04 10:54 | Internal Med Progress Note ---
Date of Encounter: 02/04/17 Time of Encounter: 10:45 - Assessment and plan (1) Lightheadedness Current Visit: Yes Status: Acute Assessment and plan: February 04. Orthostatic vital signs showed a significant BP drop from lying to standing. Will continue to hold Lasix and give IV fluids. (2) Diabetes mellitus, insulin dependent (IDDM), uncontrolled Current Visit: No Status: Chronic Assessment and plan: February 04. Hemoglobin A1c significantly elevated at 11.1%. Continue Levemir and Accu-Cheks with SSI. Qualifiers: Diabetes mellitus complication status: with kidney complications Diabetes mellitus complication detail: with chronic kidney disease Chronic kidney disease stage: stage 3 (moderate) Qualified Code(s): E10.22 - Type 1 diabetes mellitus with diabetic chronic kidney disease; E10.65 - Type 1 diabetes mellitus with hyperglycemia; N18.3 - Chronic kidney disease, stage 3 (moderate) (3) UTI (urinary tract infection) Current Visit: Yes Status: Acute Assessment and plan: February 04. Urine culture returned negative. We will discontinue Rocephin and lactobacillus. Qualifiers: Urinary tract infection type: acute cystitis Hematuria presence: without hematuria Qualified Code(s): N30.00 - Acute cystitis without hematuria (4) Anemia Current Visit: No Status: Chronic Assessment and plan: February 04. Anemia has worsened with hemoglobin 9.5 today. We will order anemia testing in a.m. Qualifiers: Anemia type: unspecified type Qualified Code(s): D64.9 - Anemia, unspecified (5) Hypomagnesemia Current Visit: Yes Status: Acute Assessment and plan: February 04. We will order IV magnesium sulfate and recheck labs in a.m. (6) CKD (chronic kidney disease) stage 4, GFR 15-29 ml/min Current Visit: No Status: Chronic Assessment and plan: February 04. Azotemia has lessened. We will discontinue Lasix and continue IV fluids. Recheck labs in a.m. - Subjective Interval history: February 04. She has no new complaints. She an episode of vomiting last evening. She still has nausea. - Constitutional Vitals: Temp Pulse Resp BP Pulse Ox 97.5 F L 82 16 138/67 99 02/04/17 07:00 02/04/17 07:00 02/04/17 07:00 02/04/17 07:00 02/04/17 07:00 Exam: She is lying in bed and appears in minimal distress at present time. Her abdomen shows bowel sounds present but diminished. There is mild tenderness in epigastric area to palpation. Extremities show no edema. I reviewed her medications and lab results. Internal Medicine: Result - Labs CBC & Chem 7: 02/04/17 04:50 02/04/17 04:50 Labs: Short CBC 02/04/17 Range/Units 04:50 WBC 6.6 (4.3-11.1) K/mcL Hgb 9.5 L (11.5-15.4) g/dL Hct 29.3 L (35.3-44.9) % Plt Count 195 (140-400) K/mcL Neutrophils # 4.3 (1.6-8.9) K/mcL BMP 02/04/17 04:50 Sodium 143 Potassium 3.6 Chloride 111 H Carbon Dioxide 22 BUN 12 Creatinine 1.23 H Glucose 78 Calcium 8.0 L - ABG Interpretation ABG results: PT/INR, D-dimer PT 10.6 Seconds (9.4-12.1) 02/02/17 17:00 - VTE Documentation of Mechanical Device: Graduated compression elastic hosiery Consult Discharge Plan - Plan Referrals: Veronica Carr [facility] [facility]PART[facility] CHAIR [Primary Care Provider] - 1 week
[2017-02-04] MEDS ORDERED: Magnesium Sulfate 1 GM in D5% in Water 100 ML IVPB ONE (10:59)
[2017-02-04] MEDS ORDERED: Insulin DETEMIR 100 UNIT/ML X5UNITS SQ SCH (11:02)
[2017-02-04] MEDS: *HR* OxyCODONE Immed Rel 5 MG TABLET PO PRN (21:50)
[2017-02-05] MEDS: 0.45 % Sodium Chloride w/KCl 20 MEQ/1,000 ML MLS IVC SCH (05:00)
[2017-02-05] MEDS: Pantoprazole 40 MG VIAL IVP SCH (05:45)
[2017-02-05 06:57] LABS: Basophils % 0.2 %; Eosinophils # 0.2 K/mcL (0.0-0.6); Eosinophils % 3.1 %; Hematocrit 28.2 % (35.3-44.9); Hemoglobin 9.2 g/dL (11.5-15.4); Lymphocytes # 1.9 K/mcL (0.6-4.6); Lymphocytes % 38.3 %; Mean Corpuscular HGB Conc 32.6 g/dL (31.6-35.5); Mean Corpuscular Hemoglobin 29.7 pg (28.0-33.3); Mean Platelet Volume 11.8 fL (9.4-12.4); Monocytes # 0.3 K/mcL (0.0-1.3); Monocytes % 5.3 %; Neutrophils # 2.6 K/mcL (1.6-8.9); Platelet Count 179 K/mcL (140-400); Red Cell Distribution Width 13.5 % (11.5-14.5); Segmented Neutrophils % 53.1 %
[2017-02-05 07:05] VITALS: BP 138/62
[2017-02-05 07:11] LABS: Potassium 4.5 mEq/L (3.5-4.5)
[2017-02-05] MEDS: Insulin LISPRO 300 UNITS/3 ML VIAL SQ SCH (08:38)
[2017-02-05] MEDS: Lactobacillus 1 EACH CAP.SPRINK PO SCH (08:39)
[2017-02-05] MEDS: *HR* OxyCODONE Immed Rel 5 MG TABLET PO PRN (08:43)
[2017-02-05 09:58] LABS: Folate 6.6 ng/mL (7.0-31.4)
--- NOTE | 2017-02-05 10:24 | Discharge Summary ---
Date of Encounter: 02/05/17 Time of Encounter: 10:15 - Discharge Diagnosis (1) Lightheadedness Priority: Primary Status: Acute (2) Diabetes mellitus, insulin dependent (IDDM), uncontrolled Priority: Secondary Status: Chronic Qualifiers: Diabetes mellitus complication status: with kidney complications Diabetes mellitus complication detail: with chronic kidney disease Chronic kidney disease stage: stage 3 (moderate) Qualified Code(s): E10.22 - Type 1 diabetes mellitus with diabetic chronic kidney disease; E10.65 - Type 1 diabetes mellitus with hyperglycemia; N18.3 - Chronic kidney disease, stage 3 (moderate) (3) UTI (urinary tract infection) Priority: Secondary Status: Acute Qualifiers: Urinary tract infection type: acute cystitis Hematuria presence: without hematuria Qualified Code(s): N30.00 - Acute cystitis without hematuria (4) Anemia Priority: Secondary Status: Chronic Qualifiers: Anemia type: unspecified type Qualified Code(s): D64.9 - Anemia, unspecified (5) Hypomagnesemia Priority: Secondary Status: Acute (6) CKD (chronic kidney disease) stage 4, GFR 15-29 ml/min Priority: Secondary Status: Chronic - Discharge Medications Home Medications: OxyCODONE Immed Rel [Roxicodone 5 MG] 5 mg PO Q4HR PRN #40 tablet 09/07/15 [Rx] Insulin Glargine [Lantus] 30 unit QPM 11/21/16 [History] Metoclopramide [Reglan] 5 mg PO BIDWM #60 tablet 11/30/16 [Rx] Simvastatin [Zocor] 10 mg PO HS tablet 11/30/16 [Rx] Promethazine [Phenergan] 25 mg PO Q12H PRN 02/02/17 [History] Allergies/Adverse Reactions: Allergies Sulfa (Sulfonamide Antibiotics) Allergy (Verified 02/02/17 17:00) Hives acetaminophen [From Tylenol] Adverse Reaction (Verified 02/02/17 17:00) Anaphylaxis gabapentin [From Neurontin] Adverse Reaction (Verified 02/02/17 17:00) Hallucinating hydrocodone Adverse Reaction (Verified 02/02/17 17:00) Hives ibuprofen Adverse Reaction (Verified 02/02/17 17:00) Hives Date of admission: 02/02/17 19:55 Primary care physician: Veronica Carr CNP Consults: 02/02/17 21:33 Consult to Nutrition [CONS] Routine Comment: Consulting Provider: NUTRITION Reason for Dietary Consult: MST Score - Patient Status Disposition: Home, Self-Care Condition: Fair Functional capacity at discharge: independent ambulation Overall status at discharge: patient is progressing back to baseline - Discharge Instructions Follow Up With: Veronica Carr CNP [Primary Care Provider] - 1 week - Diet and Activity Activity: resume usual activities as tolerated Diet: diabetic diet Hospital course: Ms. Mohamud is a 66 year old female who came to emergency room stating she had onset of lightheadedness earlier this admission. She describes it as feeling off balance when she walked. She did not have a fall. She does not describe vertigo sensation. Reports she has had intermittent vomiting and diarrhea for the last 2 months. There is been both coffee grounds and bright red blood in the vomitus. She reports dark blood in her stools periodically. She also reports loose watery stools 3-5 times daily. She has had intermittent abdominal pain the past week that occurs on a daily basis. She is evaluated in emergency room and felt to have UTI. She was admitted to [facility] for ongoing care needs. Initial orders were written by the emergency room physician. I saw her on February 03 and performed a history and physical. She was given IV fluids and prn anti-emetics. Her vomiting and diarrhea resolved. Her azotemia improved with BUN and creatinine being 19 and 1.28 respectively on February 05 with estimated GFR 42. Hemoglobin decreased with hydration to 9.2 on the day of discharge. Anemia testing showed iron 74, transferrin saturation 39%, ferritin 118, B12 419, and folate 6.6. Her magnesium level returned low on February 04 at 1.2. She was given 1 g IV of magnesium sulfate. Lasix was discontinued because of the azotemia and hypomagnesemia and she remained stable off this. She will remain off Lasix at discharge. Urine culture returned showing no growth. She was given a dose of Rocephin on admission but antibiotics were not continued during hospitalization and she had no evidence of infection clinically. She will be discharged home to follow with her PCP Veronica Perdomo CNP within 1 week. - Time Spent with Patient Total time spent providing and/or coordinating discharge services: - Constitutional Vitals: Temp Pulse Resp BP Pulse Ox 97.9 F 86 16 138/62 96 04/25/17 07:05 02/05/17 07:05 02/05/17 07:05 02/05/17 07:05 02/05/17 07:05 - VTE Documentation of Mechanical Device: Graduated compression elastic hosiery
== END 2017-02-05 18:17 | disposition home or self-care (01) ==
LOC: EMEROOPIK 16:32 → INPPIK 16:32
PROVIDERS: ADMIT Internal Medicine; ATTEND Internal Medicine

== ENCOUNTER 2017-05-31 17:27 | Observation (INO) ==
[2017-05-31 18:09] LABS: Bilirubin,Urine Negative (Negative); Blood,Urine Moderate (Negative); Clarity,Urine Cloudy (Clear); Color,Urine Yellow (Yellow); Glucose,Urine (UA) 500 mg/dL (Normal); Ketones,Urine Negative (Negative); Leukocyte Esterase,Urine Moderate (Negative); Nitrite,Urine Negative (Negative); Protein,Urine 100 mg/dL (Neg-Trace); Urobilinogen,Urine Normal (Normal)
[2017-05-31 18:21] LABS: Bacteria,Urine Many per hpf (None-Few); Mucus,Urine Few (Few); Squamous Epithelial Cell,Urine Few per lpf (None-Few); WBC,Urine 50-100 per hpf (0-3); Yeast,Urine Many per hpf (None Seen)
[2017-05-31] MEDS ORDERED: Aspirin 325 MG TABLET PO STA (18:50)
--- NOTE | 2017-05-31 18:54 | Emergency Department Note ---
Disposition Clinical Impression: CKD (chronic kidney disease) stage 4, GFR 15-29 ml/min, Pyelonephritis Disposition: Admitted As Inpatient Condition: Good General Adult HPI - General Chief complaint: ED Urogenital-Female Stated complaint: jansen with urination, vomiting Time Seen by Provider: 05/31/17 18:44 Source: patient Mode of arrival: EMS Limitations: no limitations Nursing Notes Reviewed: Yes Vital Signs Reviewed: Yes - History of Present Illness HPI Narrative: Patient presented to the ED via EMS complaining of UTI symptoms, nausea and vomiting. States she has had burning with urination for 1 month as well as increased urination and frequency but decreased volume. States nausea and vomiting started last night and she has vomited 5 times. She is still currently nauseous. States she has had suprapubic pain for the past week that she describes as a constant ache with occasional sharp pains that she rates a 9 out of 10. Denies any other type of abdominal pain. She also states she has had bilateral "kidney pain" for 7 months. She reports a subjective fever as well. No diarrhea or constipation. Had a normal bowel movement yesterday. States that she sees Dr. Thayer of neurology because her kidneys are "failing". She also has a history of diabetes and is on Lantus. She has not taken anything for her symptoms at home. States she told her PCP about the burning with urination several weeks ago but had been recently hospitalized and was already on antibiotics at the time and states no tests were done. Pain Scale: 8 - Related Data Home Medications Medication Instructions Recorded Confirmed Insulin Glargine [Lantus] 20 unit QPM 11/21/16 05/31/17 Promethazine [Phenergan] 25 mg PO Q12H PRN 02/02/17 05/31/17 Previous Rx's Medication Instructions Recorded Metoclopramide [Reglan] 5 mg PO BIDWM #60 tablet 11/30/16 Simvastatin [Zocor] 10 mg PO HS tablet 11/30/16 Allergies Allergy/AdvReac Type Severity Reaction Status Date / Time Sulfa (Sulfonamide Allergy Hives Verified 05/31/17 17:29 Antibiotics) acetaminophen [From Tylenol] AdvReac Anaphylaxis Verified 05/31/17 17:29 gabapentin [From Neurontin] AdvReac Hallucinati Verified 05/31/17 17:29 ng hydrocodone AdvReac Hives Verified 05/31/17 17:29 ibuprofen AdvReac Hives Verified 05/31/17 17:29 Constitutional: Reports: fever. Denies: chills, weakness, weight change Eyes: Denies: eye pain, eye discharge, vision change ENT ED: Denies: ear pain, throat pain, dental pain, hearing loss, epistaxis, congestion, dysphagia Cardiovascular: Denies: chest pain, palpitations, dyspnea on exertion, edema, syncope Respiratory: Denies: cough, dyspnea, wheezes, hemoptysis, stridor Gastrointestinal: Reports: abdominal pain (suprapubic), nausea, vomiting. Denies: diarrhea, constipation, hematemesis, melena, hematochezia Genitourinary: Reports: as per HPI, urgency, dysuria, frequency Musculoskeletal: Denies: back pain, neck pain, arthralgia, myalgia Integumentary: Denies: rash, abrasion, lesions Neurological: Denies: headache, weakness, numbness, paresthesias, confusion, abnormal gait, vertigo Psychiatric: Denies: anxiety, depression, suicidal thoughts, homicidal thoughts , auditory hallucinations, visual hallucinations Endocrine: Denies: fatigue Hematological/Lymphatic: Denies: easy bleeding, easy bruising Allergic/Immunologic: Denies: facial swelling, urticaria Past Medical History - Past Medical History Medical history: Reports: CHF, coronary artery disease, diabetes, GERD, hyperlipidemia, hypertension, renal disease Surgical history: Reports: angioplasty/stent, , hysterectomy Psychiatric history: Reports: no psych history 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 - Social History Smoking Status: Former smoker Smokeless Tobacco Status: No Alcohol use: Reports: none Drug use: Reports: none Physical Exam - General Limitations: no limitations General appearance: alert, in no apparent distress - Head Head exam: atraumatic, normocephalic, normal inspection - Eye Eye exam: Present: normal appearance, PERRL, EOMI - ENT ENT exam: normal exam, normal oropharynx, mucous membranes moist - Chest Chest inspection: Present: normal inspection, symmetric chest wall rise - Respiratory Respiratory exam: Present: normal lung sounds bilaterally - Cardiovascular Cardiovascular exam: Present: regular rate, normal rhythm, normal heart sounds - Abdominal Exam Abdominal exam: Present: soft, tenderness, normal bowel sounds. Absent: distention, guarding, rebound, rigidity Abdominal tenderness: Present: suprapubic, mild - Extremities Exam Extremities exam: Present: normal inspection, full ROM. Absent: tenderness, pedal edema - Back Exam Back exam: Present: normal inspection, full ROM, CVA tenderness (R), CVA tenderness (L). Absent: tenderness - Neurological Exam Neurological exam: Present: alert, oriented X3 - Psychiatric Psychiatric exam: Present: normal affect, normal mood - Skin Skin exam: Present: warm, dry, intact, normal color Course Course Narrative: Patient presents to the ED complaining of dysuria for 1 month as well as chronic flank pain, dysuria and suprapubic discomfort now with nausea and vomiting. Primary concern is for UTI with possibility of pyelonephritis. She was slightly tachycardic on arrival but afebrile. Will obtain laboratory studies. We will give Zofran. - Reevaluation(s) Reevaluation #1: She has now become febrile with a temperature of 101.4. She cannot take acetaminohen or ibuprofen. States she normally takes aspirin for fever. She will be given a dose of aspirin. Reevaluation #2: CBC show no leukocytosis and lactic acid is normal. BUN/creatinine appears to be at patient's baseline. Urinalysis does show evidence of UTI. Given her flank pain, nausea, vomiting and fever however she does meet criteria for pyelonephritis. Given her chronic kidney disease she would benefit from IV fluids and antibiotics as she is also diabetic and risk for further complications. Spoke with patient about hospitalization and she is in agreement. I spoke to the hospitalist on-call, Dr. Oliveros, who has agreed to accept the patient. She has been started on Cipro. Vital Signs Temperature 97.7 F 05/31/17 17:32 Pulse Rate 116 05/31/17 17:32 Respiratory Rate 20 05/31/17 17:32 Blood Pressure 130/73 05/31/17 17:32 O2 Sat by Pulse Oximetry 96 05/31/17 17:32 Temperature 97.9 F 06/01/17 06:18 Pulse Rate 73 06/01/17 06:18 Respiratory Rate 18 06/01/17 06:18 Blood Pressure 109/70 06/01/17 06:18 O2 Sat by Pulse Oximetry 97 06/01/17 06:18 Oxygen Delivery Oxygen Delivery Room Air Medical Decision Making - Differential Diagnosis UTI, pyelonephritis, urosepsis - Medical Records Medical records reviewed: Yes I reviewed the patient's medical records. - Lab Data Lab results reviewed: Yes I reviewed the patient's lab results. Result diagrams: 05/31/17 19:10 05/31/17 19:10 Lab Results 05/31/17 05/31/17 05/31/17 Range/Units 17:59 18:46 19:10 WBC 5.8 (4.3-11.1) K/mcL RBC 3.48 L (3.82-4.97) M/mcL Hgb 10.4 L (11.5-15.4) g/dL Hct 31.1 L (35.3-44.9) % MCV 89.4 (83.0-100.0) fL MCH 29.9 (28.0-33.3) pg MCHC 33.4 (31.6-35.5) g/dL RDW 12.8 (11.5-14.5) % Plt Count 168 (140-400) K/mcL MPV 10.7 (9.4-12.4) fL Immature Gran % 0.2 (0-4) % Seg Neutrophils % 79.5 % Lymphocytes % 12.7 % Monocytes % 6.0 % Eosinophils % 1.4 % Basophils % 0.2 % Neutrophils # 4.6 (1.6-8.9) K/mcL Lymphocytes # 0.7 (0.6-4.6) K/mcL Monocytes # 0.4 (0.0-1.3) K/mcL Eosinophils # 0.1 (0.0-0.6) K/mcL Basophils # 0.0 (0.0-0.2) K/mcL VBG Lactic Acid (0.5-2.2) mmol/L Sodium (136-145) mEq/L Potassium (3.5-4.5) mEq/L Chloride (98-109) mEq/L Carbon Dioxide (19-29) mEq/L BUN (7-20) mg/dL Creatinine (0.57-1.11) mg/dL Est GFR ( Amer) (> 60) Est GFR (Non-Af Amer) (> 60) BUN/Creatinine Ratio (6-26) Glucose (70-99) mg/dL POC Glucose 171 H (58-89) Calculated Osmolality (280-300) Calcium (8.6-10.8) mg/dL Total Bilirubin (0.2-1.2) mg/dL AST (5-34) Units/L ALT (0-55) Units/L Alkaline Phosphatase (38-126) Units/L Serum Total Protein (6.0-8.3) g/dL Albumin (3.5-5.0) g/dL Globulin (2.4-3.5) g/dL Albumin/Globulin Ratio (1.1-2.2) Lipase (8-78) Units/L Urine Color Yellow (Yellow) Urine Clarity Cloudy A (Clear) Urine pH 5.0 (5.0-8.0) pH Units Ur Specific Garfield 1.020 (1.010-1.025) Urine Protein 100 H (Neg-Trace) mg/dL Urine Glucose (UA) 500 H (Normal) mg/dL Urine Ketones Negative (Negative) mg/dL Urine Blood Moderate H (Negative) Urine Nitrite Negative (Negative) Urine Bilirubin Negative (Negative) Urine Urobilinogen Normal (Normal) mg/dL Ur Leukocyte Esterase Moderate H (Negative) Urine Microscopic RBC 5-15 H (0-3) per hpf Urine Microscopic WBC 50-100 H (0-3) per hpf Ur Squamous Epith Cells Few (None-Few) per lpf Urine Bacteria Many H (None-Few) per hpf Urine Mucus Few (Few) Urine Yeast Many H (None Seen) per hpf Ur Culture Indicated? YES A (NO) 05/31/17 05/31/17 Range/Units 19:10 20:11 WBC (4.3-11.1) K/mcL RBC (3.82-4.97) M/mcL Hgb (11.5-15.4) g/dL Hct (35.3-44.9) % MCV (83.0-100.0) fL MCH (28.0-33.3) pg MCHC (31.6-35.5) g/dL RDW (11.5-14.5) % Plt Count (140-400) K/mcL MPV (9.4-12.4) fL Immature Gran % (0-4) % Seg Neutrophils % % Lymphocytes % % Monocytes % % Eosinophils % % Basophils % % Neutrophils # (1.6-8.9) K/mcL Lymphocytes # (0.6-4.6) K/mcL Monocytes # (0.0-1.3) K/mcL Eosinophils # (0.0-0.6) K/mcL Basophils # (0.0-0.2) K/mcL VBG Lactic Acid 0.8 (0.5-2.2) mmol/L Sodium 139 (136-145) mEq/L Potassium 4.4 (3.5-4.5) mEq/L Chloride 104 (98-109) mEq/L Carbon Dioxide 25 (19-29) mEq/L BUN 13 (7-20) mg/dL Creatinine 1.35 H (0.57-1.11) mg/dL Est GFR ( Amer) 48 L (> 60) Est GFR (Non-Af Amer) 39 L (> 60) BUN/Creatinine Ratio 10 (6-26) Glucose 184 H (70-99) mg/dL POC Glucose (58-89) Calculated Osmolality 293 (280-300) Calcium 9.3 (8.6-10.8) mg/dL Total Bilirubin 0.3 (0.2-1.2) mg/dL AST 12 (5-34) Units/L ALT 9 (0-55) Units/L Alkaline Phosphatase 105 (38-126) Units/L Serum Total Protein 7.4 (6.0-8.3) g/dL Albumin 3.2 L (3.5-5.0) g/dL Globulin 4.2 H (2.4-3.5) g/dL Albumin/Globulin Ratio 0.8 L (1.1-2.2) Lipase 26 (8-78) Units/L Urine Color (Yellow) Urine Clarity (Clear) Urine pH (5.0-8.0) pH Units Ur Specific Garfield (1.010-1.025) Urine Protein (Neg-Trace) mg/dL Urine Glucose (UA) (Normal) mg/dL Urine Ketones (Negative) mg/dL Urine Blood (Negative) Urine Nitrite (Negative) Urine Bilirubin (Negative) Urine Urobilinogen (Normal) mg/dL Ur Leukocyte Esterase (Negative) Urine Microscopic RBC (0-3) per hpf Urine Microscopic WBC (0-3) per hpf Ur Squamous Epith Cells (None-Few) per lpf Urine Bacteria (None-Few) per hpf Urine Mucus (Few) Urine Yeast (None Seen) per hpf Ur Culture Indicated? (NO)
[2017-05-31] MEDS ORDERED: 0.9 % Sodium Chloride 1,000 ML IVC ONE (18:55)
[2017-05-31] MEDS ORDERED: Ondansetron 4 MG/2 ML VIAL IVP ONE (18:55)
[2017-05-31 19:16] LABS: Basophils % 0.2 %; Eosinophils # 0.1 K/mcL (0.0-0.6); Eosinophils % 1.4 %; Hematocrit 31.1 % (35.3-44.9); Hemoglobin 10.4 g/dL (11.5-15.4); Immature Granulocytes % 0.2 % (0-4); Lymphocytes # 0.7 K/mcL (0.6-4.6); Lymphocytes % 12.7 %; Mean Corpuscular HGB Conc 33.4 g/dL (31.6-35.5); Mean Corpuscular Hemoglobin 29.9 pg (28.0-33.3); Mean Corpuscular Volume 89.4 fL (83.0-100.0); Mean Platelet Volume 10.7 fL (9.4-12.4); Monocytes # 0.4 K/mcL (0.0-1.3); Neutrophils # 4.6 K/mcL (1.6-8.9); Platelet Count 168 K/mcL (140-400); Red Blood Count 3.48 M/mcL (3.82-4.97); Red Cell Distribution Width 12.8 % (11.5-14.5); Segmented Neutrophils % 79.5 %
[2017-05-31 19:35] LABS: Albumin 3.2 g/dL (3.5-5.0); Albumin/Globulin Ratio 0.8 (1.1-2.2); Bilirubin,Total 0.3 mg/dL (0.2-1.2); Calcium 9.3 mg/dL (8.6-10.8); Globulin 4.2 g/dL (2.4-3.5); Potassium 4.4 mEq/L (3.5-4.5); Total Protein 7.4 g/dL (6.0-8.3)
[2017-05-31] MEDS ORDERED: Naloxone 0.4 MG/ML INJ IVP PRN ×2 (21:07→22:41)
[2017-05-31] MEDS ORDERED: D5% in Water 1,000 ML IVC PRN ×2 (21:14→22:41)
[2017-05-31] MEDS ORDERED: *HR* Dextrose 50 % in Water (Syg) 50 ML SYRINGE IVP PRN ×2 (21:14→22:41)
[2017-05-31] MEDS ORDERED: Dextrose Gel 15 GM PO PRN ×4 (21:14→22:41)
[2017-05-31] MEDS ORDERED: 0.9 % Sodium Chloride 1,000 ML IVC SCH (21:15)
[2017-05-31] MEDS: 0.9 % Sodium Chloride 1,000 ML IVC SCH (22:30)
[2017-06-01] MEDS: 0.9 % Sodium Chloride 1,000 ML IVC SCH (06:44)
[2017-06-01] MEDS ORDERED: Insulin LISPRO 300 UNITS/3 ML VIAL SQ SCH ×2 (07:30→21:00)
[2017-06-01] MEDS: Insulin LISPRO 300 UNITS/3 ML VIAL SQ SCH ×4 (08:41→21:43)
[2017-06-01] MEDS ORDERED: Ondansetron 4 MG/2 ML VIAL IVP PRN (15:15)
--- NOTE | 2017-06-01 15:24 | Internal Med History&Physical ---
Date of Encounter: 06/01/17 Time of Encounter: 14:50 Assessment and Plan (1) UTI (urinary tract infection) Current visit: No Status: Acute Presumed. Urine culture has been sent and she has been started empirically on Cipro. Qualifiers: Urinary tract infection type: acute cystitis Hematuria presence: without hematuria Qualified Code(s): N30.00 - Acute cystitis without hematuria (2) CKD (chronic kidney disease) stage 3, GFR 30-59 ml/min Current visit: Yes Status: Chronic We will monitor renal indices periodically. (3) Anemia Current visit: No Status: Chronic Folate was low at 6.6 on 02/05/2017. We will recheck anemia testing in a.m. Qualifiers: Anemia type: unspecified type Qualified Code(s): D64.9 - Anemia, unspecified (4) Hypomagnesemia Current visit: No Status: Acute Magnesium was low at 1.2 on 02/04/2017. We will recheck in a.m. (5) Vomiting Current visit: Yes Status: Acute Possibly multifactorial etiology including UTI and/or gastroenteritis with possible superimposed diabetic gastropathy. She has been started on Cipro for possible UTI. I will increase her Reglan dose. Further workup can be done as needed. Qualifiers: Vomiting type: unspecified Vomiting Intractability: non-intractable Nausea presence: with nausea Qualified Code(s): R11.2 - Nausea with vomiting, unspecified Internal Medicine - H&P: HPI Chief complaint: Vomiting and dysuria Admitted From: Home Plans for Post Hospital Care: Home History of present illness: Ms. Mohamud is a 66 year old female who came to the emergency room stating she had dysuria for the past month. She was hesitant to seek medical attention and hoped it would simply resolve. She reports over the past 1-2 days she has had at least 5 episodes of vomiting. She came to emergency room and was felt to have pyelonephritis. She was admitted to [facility] floor for ongoing care needs. Her history is pertinent for chronic kidney disease stage III. 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 She denies hematuria dysuria or kidney stones. Past Med Surg Social Fam HX - Past Medical History Medical history: CHF, coronary artery disease, diabetes, GERD, hyperlipidemia, hypertension, renal disease Psychiatric history: no psych history - Past Surgical History Surgical History: angioplasty/stent, , hysterectomy - Social History Smoking Status: Former smoker Smokeless Tobacco Status: No Alcohol use: none Drug use: none - Family History Mother Family Member Ethnicity: Non- Living Status: Hx Family Cardiac Disorders: Yes Hx Family Respiratory Disorders: No Hx Family Cancer: No Hx Family GI Disorders: No Hx Family Endocrine Disorder: Yes (diabetes) Hx Family Neuromuscular Disorders: No Hx Family Neurologic Disorders: No Hx Family HEENT Disorders: No Hx Family Autoimmune Disorders: No Father Family Member Ethnicity: Non- Living Status: Hx Family Cardiac Disorders: Yes (chf) Hx Family Respiratory Disorders: No Hx Family Cancer: No Hx Family GI Disorders: No Hx Family Endocrine Disorder: No Hx Family Neuromuscular Disorders: No Hx Family Neurologic Disorders: No Hx Family HEENT Disorders: No Hx Family Autoimmune Disorders: No Internal Medicine - H&P: Meds Insulin Glargine [Lantus] 20 unit QPM 11/21/16 [History] Metoclopramide [Reglan] 5 mg PO BIDWM #60 tablet 11/30/16 [Rx] Simvastatin [Zocor] 10 mg PO HS tablet 11/30/16 [Rx] Promethazine [Phenergan] 25 mg PO Q12H PRN 02/02/17 [History] 3 Allergy/AdvReac Type Severity Reaction Status Date / Time Sulfa (Sulfonamide Allergy Hives Verified 05/31/17 17:29 Antibiotics) acetaminophen [From Tylenol] AdvReac Anaphylaxis Verified 05/31/17 17:29 gabapentin [From Neurontin] AdvReac Hallucinati Verified 05/31/17 17:29 ng hydrocodone AdvReac Hives Verified 05/31/17 17:29 ibuprofen AdvReac Hives Verified 05/31/17 17:29 All Systems PM: A 10-system review of systems was performed and is negative for pertinent findings except as documented above in the HPI. Review of systems: Review of systems from her January 2017 [facility] hospitalization were reviewed and revised as below. General: Her weight has decreased from 77.247 kg on 10/27/2015 to 65.771 kg on admission now. Cardiovascular: She has known ASHD with stents placed in 2004 and 2005. There was no preceding AR. Her last cath was 2005 at the time of stent placement. She had an exercise stress test in 2012 which she reports was negative. She denies DVT pulmonary emboli hypertension or heart failure Respiratory: She smoked for approximately 4 years in her early 20s but has no known chronic lung disease. She does not wear home oxygen and does not recall being tested for sleep apnea GI: She has GERD but no known disorder of her liver gallbladder or exocrine pancreas. She was hospitalized with acute gastroenteritis earlier this year. : As per history of present illness Neurologic: She denies large distribution strokes or seizures. 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 She has hyperlipidemia but no known thyroid disease Hematology/oncology: She denies blood disorders or cancers. She had anemia testing 02/05/2017 showing iron 74, transferrin saturation 39%, transferrin 136 , ferritin 118, B12 419, and folate 6.6. Psychiatric: She denies anxiety depression or other mental health issues Musk skeletal: She denies arthritis or osteoporosis or gout. She did have elevated uric acid level at 8.0 on 02/13/2016 but it had improved to 6.3 on . She has had right great toe amputation in the distant past - Constitutional Vitals: Temp Pulse Resp BP Pulse Ox 98.7 F 75 18 114/52 96 06/01/17 11:13 06/01/17 11:13 06/01/17 11:13 06/01/17 11:13 06/01/17 11:13 Exam: Gen.: She is a well-developed well-nourished female lying in bed who appears in no acute distress HEENT: Head is atraumatic and normocephalic. Eyes: EOMI. There is no scleral icterus. Mouth: Mucosa is moist. Neck: Supple and nontender. There is no thyromegaly or adenopathy noted. Heart: Regular without murmurs gallops or ectopics Lungs: No wheezes or crackles are heard. Abdomen: Soft and nontender. No masses or guarding are noted. Bowel sounds are diminished. Extremities: There is no cyanosis edema or clubbing noted. Dorsalis pedis and posttibial pulses are trace palpable bilaterally. She has had amputation of the right great toe. Mild DJD changes of her hands. Neurologic: Mental status: She is talkative and a good historian. Cranial nerves: Smile is symmetric. Forehead wrinkles bilaterally. Tongue protrudes midline. EOMI. Motor: There is no pronator drift. Cerebellar: Finger to nose is intact bilaterally. Skin: Warm and dry Internal Med - H&P Results - Labs CBC & Chem 7: 05/31/17 19:10 05/31/17 19:10 - VTE Reasons for not Prescribing Prophylaxis: Treatment not Indicated - Low risk for VTE
[2017-06-01] MEDS: Insulin DETEMIR 100 UNIT/ML per UNIT SQ SCH (17:39)
[2017-06-01] MEDS ORDERED: NON-FORMULARY MEDICATION 1 EACH EACH (Insulin Glargine [Lantus] 20 UNIT) SQ SCH (18:00)
[2017-06-01] MEDS: Pregabalin 50 MG CAPSULE PO SCH (21:42)
[2017-06-02] MEDS: 0.9 % Sodium Chloride 1,000 ML IVC SCH (01:58)
[2017-06-02 06:15] LABS: Basophils % 0.2 %; Eosinophils # 0.1 K/mcL (0.0-0.6); Eosinophils % 2.4 %; Hemoglobin 9.1 g/dL (11.5-15.4); Immature Granulocytes % 0.5 % (0-4); Lymphocytes # 1.9 K/mcL (0.6-4.6); Lymphocytes % 45.7 %; Mean Corpuscular HGB Conc 32.5 g/dL (31.6-35.5); Mean Corpuscular Hemoglobin 29.9 pg (28.0-33.3); Mean Corpuscular Volume 92.1 fL (83.0-100.0); Mean Platelet Volume 11.7 fL (9.4-12.4); Monocytes # 0.3 K/mcL (0.0-1.3); Monocytes % 7.7 %; Neutrophils # 1.8 K/mcL (1.6-8.9); Platelet Count 147 K/mcL (140-400); Red Blood Count 3.04 M/mcL (3.82-4.97); Segmented Neutrophils % 43.5 %
[2017-06-02 06:29] LABS: Calcium 8.2 mg/dL (8.6-10.8); Magnesium 1.4 mg/dL (1.6-2.6); Potassium 3.9 mEq/L (3.5-4.5)
[2017-06-02] MEDS: Pregabalin 50 MG CAPSULE PO SCH ×2 (09:56→21:08)
[2017-06-02] MEDS: Insulin LISPRO 300 UNITS/3 ML VIAL SQ SCH ×4 (09:58→21:09)
--- NOTE | 2017-06-02 10:04 | Internal Med Progress Note ---
Date of Encounter: 06/02/17 Time of Encounter: 09:55 - Assessment and plan (1) UTI (urinary tract infection) Current Visit: No Status: Acute Assessment and plan: June 02. Urine culture was negative. We will discontinue Cipro. Qualifiers: Urinary tract infection type: acute cystitis Hematuria presence: without hematuria Qualified Code(s): N30.00 - Acute cystitis without hematuria (2) CKD (chronic kidney disease) stage 3, GFR 30-59 ml/min Current Visit: Yes Status: Chronic Assessment and plan: June 02. Creatinine slightly improved. Continue present management. (3) Anemia Current Visit: No Status: Chronic Assessment and plan: June 02. Anemia testing is pending Qualifiers: Anemia type: unspecified type Qualified Code(s): D64.9 - Anemia, unspecified (4) Hypomagnesemia Current Visit: No Status: Acute Assessment and plan: June 02. Magnesium level was low at 1.4. We will start magnesium oxide. (5) Vomiting Current Visit: Yes Status: Acute Assessment and plan: June 02. She has not vomited since yesterday. Will continue present management. Qualifiers: Vomiting type: unspecified Vomiting Intractability: non-intractable Nausea presence: with nausea Qualified Code(s): R11.2 - Nausea with vomiting, unspecified - Subjective Interval history: June 02. She has no new complaints except she had some diarrhea this morning. - Constitutional Vitals: Temp Pulse Resp BP Pulse Ox 97.8 F 78 16 160/71 97 06/02/17 07:21 06/02/17 07:21 06/02/17 07:21 06/02/17 07:21 06/02/17 07:21 Exam: She is resting comfortably in bed and appears in no acute distress. Her affect is cheerful. I reviewed her medications and lab results. Internal Medicine: Result - Labs CBC & Chem 7: 06/02/17 05:20 06/02/17 05:20 Labs: Short CBC 06/02/17 Range/Units 05:20 WBC 4.2 L (4.3-11.1) K/mcL Hgb 9.1 L (11.5-15.4) g/dL Hct 28.0 L (35.3-44.9) % Plt Count 147 (140-400) K/mcL Neutrophils # 1.8 (1.6-8.9) K/mcL BMP 06/02/17 05:20 Sodium 143 Potassium 3.9 Chloride 114 H Carbon Dioxide 23 BUN 17 Creatinine 1.27 H Glucose 59 L Calcium 8.2 L - VTE Reasons for not Prescribing Prophylaxis: Treatment not Indicated - Low risk for VTE Consult Discharge Plan - Plan Referrals: Veronica Carr, DIRECTOR OF VIDEO ANALYTICS [Primary Care Provider] - 1 week
[2017-06-02] MEDS: Magnesium Oxide 400 MG TABLET PO SCH ×2 (10:21→21:09)
[2017-06-02] MEDS: 0.45 % Sodium Chloride w/KCl 20 MEQ/1,000 ML MLS IVC SCH (10:22)
[2017-06-02] MEDS: Insulin DETEMIR 100 UNIT/ML per UNIT SQ SCH (16:48)
[2017-06-02 18:01] LABS: Folate 7.4 ng/mL (7.0-31.4)
[2017-06-03] MEDS: 0.45 % Sodium Chloride w/KCl 20 MEQ/1,000 ML MLS IVC SCH (03:12)
[2017-06-03 06:51] LABS: Basophils % 0.2 %; Eosinophils # 0.2 K/mcL (0.0-0.6); Eosinophils % 3.1 %; Hematocrit 27.8 % (35.3-44.9); Lymphocytes # 2.4 K/mcL (0.6-4.6); Lymphocytes % 46.5 %; Mean Corpuscular HGB Conc 32.4 g/dL (31.6-35.5); Mean Corpuscular Hemoglobin 29.9 pg (28.0-33.3); Mean Corpuscular Volume 92.4 fL (83.0-100.0); Mean Platelet Volume 11.2 fL (9.4-12.4); Monocytes # 0.3 K/mcL (0.0-1.3); Monocytes % 6.4 %; Neutrophils # 2.3 K/mcL (1.6-8.9); Platelet Count 159 K/mcL (140-400); Red Blood Count 3.01 M/mcL (3.82-4.97); Red Cell Distribution Width 13.2 % (11.5-14.5); Segmented Neutrophils % 43.8 %
[2017-06-03 07:12] VITALS: BP 157/75
[2017-06-03 07:12] LABS: BUN/Creatinine Ratio 18 (6-26); Blood Urea Nitrogen 20 mg/dL (7-20); Calcium 8.1 mg/dL (8.6-10.8); Carbon Dioxide 23 mEq/L (19-29); Chloride 113 mEq/L (98-109); Glucose 64 mg/dL (70-99); Osmolality,Calculated 295 (280-300); Potassium 4.4 mEq/L (3.5-4.5); Sodium 142 mEq/L (136-145); eGFR For African Americans > 60 (> 60); eGFR For Non-African Americans 50 (> 60)
[2017-06-03] MEDS: 0.9 % Sodium Chloride 1,000 ML IVC SCH ×2 (08:47→08:48)
[2017-06-03] MEDS: Insulin LISPRO 300 UNITS/3 ML VIAL SQ SCH (09:44)
[2017-06-03] MEDS: Pregabalin 50 MG CAPSULE PO SCH (09:58)
[2017-06-03] MEDS: Magnesium Oxide 400 MG TABLET PO SCH (09:58)
--- NOTE | 2017-06-03 10:27 | Discharge Summary ---
Date of Encounter: 06/03/17 Time of Encounter: 10:15 - Discharge Diagnosis (1) UTI (urinary tract infection) Priority: Primary Status: Acute Qualifiers: Urinary tract infection type: acute cystitis Hematuria presence: without hematuria Qualified Code(s): N30.00 - Acute cystitis without hematuria (2) CKD (chronic kidney disease) stage 3, GFR 30-59 ml/min Priority: Secondary Status: Chronic (3) Anemia Priority: Secondary Status: Chronic Qualifiers: Anemia type: unspecified type Qualified Code(s): D64.9 - Anemia, unspecified (4) Hypomagnesemia Priority: Secondary Status: Acute (5) Vomiting Priority: Secondary Status: Resolved Qualifiers: Vomiting type: unspecified Vomiting Intractability: non-intractable Nausea presence: with nausea Qualified Code(s): R11.2 - Nausea with vomiting, unspecified - Discharge Medications Prescriptions: Magnesium Oxide [Mag-Ox] 400 mg PO DAILY #7 tablet Metoclopramide HCl 5 mg PO ACHS #120 tablet Pregabalin [Lyrica] 50 mg PO BID #60 capsule Home Medications: Insulin Glargine [Lantus] 20 unit QPM 11/21/16 [History] Simvastatin [Zocor] 10 mg PO HS tablet 11/30/16 [Rx] Promethazine [Phenergan] 25 mg PO Q12H PRN 02/02/17 [History] Magnesium Oxide [Mag-Ox] 400 mg PO DAILY #7 tablet 06/03/17 [Rx] Metoclopramide HCl 5 mg PO ACHS #120 tablet 06/03/17 [Rx] Pregabalin [Lyrica] 50 mg PO BID #60 capsule 06/03/17 [Rx] Allergies/Adverse Reactions: 3 Allergy/AdvReac Type Severity Reaction Status Date / Time Sulfa (Sulfonamide Allergy Hives Verified 05/31/17 17:29 Antibiotics) acetaminophen [From Tylenol] AdvReac Anaphylaxis Verified 05/31/17 17:29 gabapentin [From Neurontin] AdvReac Hallucinati Verified 05/31/17 17:29 ng hydrocodone AdvReac Hives Verified 05/31/17 17:29 ibuprofen AdvReac Hives Verified 05/31/17 17:29 Date of admission: 05/31/17 21:28 Primary care physician: Veronica M Carr, C - Patient Status Disposition: Home, Self-Care Condition: Good Overall status at discharge: patient is progressing back to baseline - Discharge Instructions Follow Up With: Veronica Carr CNP [Primary Care Provider] - 1 week - Diet and Activity Activity: resume usual activities as tolerated Diet: diabetic diet Hospital course: Ms. Mohamud is a 66 year old female who came to the emergency room stating she had dysuria for the past month. She was hesitant to seek medical attention and hoped it would simply resolve. She reports over the past 1-2 days she has had at least 5 episodes of vomiting. She came to emergency room and was felt to have pyelonephritis. She was admitted to [facility] for ongoing care needs. Initial orders were written by the emergency room physician. I saw her on June 01 and performed the history and physical. She was started empirically on Cipro through the emergency room. Urine culture returned showing no growth. She remained afebrile. Antibiotics will not be continued at discharge. She was given IV fluids and her azotemia improved with BUN and creatinine being 20 and 1.10 respectively on the day of discharge with estimated GFR 50. Anemia testing showed iron 40, transferrin saturation 23%, transferrin 125, ferritin 124, B12 346, and folate 7.4. Magnesium level returned low at 1.4. She was started on magnesium oxide and this will be continued for 7 days after discharge. She had no further vomiting after the first hospital day. She was given Lyrica for complaints of leg pain and had significant improvement. This will be continued at discharge. On June 03 felt she was stable for discharge home. She will follow with her PCP within one week. - Time Spent with Patient Total time spent providing and/or coordinating discharge services: - Constitutional Vitals: Temp Pulse Resp BP Pulse Ox 97.9 F 71 18 157/75 98 06/03/17 07:04 06/03/17 07:04 06/03/17 07:04 06/03/17 07:04 06/03/17 07:04 - VTE Reasons for not Prescribing Prophylaxis: Treatment not Indicated - Low risk for VTE
[2017-06-03] MEDS ORDERED: Insulin DETEMIR 100 UNIT/ML X5UNITS SQ SCH (18:00)
== END 2017-06-03 12:17 | disposition home or self-care (01) ==
LOC: EMEROOPIK 17:27 → INPPIK 17:27
PROVIDERS: ADMIT Internal Medicine; ATTEND Internal Medicine

== ENCOUNTER 2017-07-12 23:17 | Observation (INO) ==
--- NOTE | 2017-07-12 23:28 | Emergency Department Note ---
Disposition Clinical Impression: UTI (urinary tract infection), Diabetes mellitus, insulin dependent (IDDM), uncontrolled, CKD (chronic kidney disease) stage 3, GFR 30-59 ml/min, Hypoglycemia Disposition: Admitted As Inpatient Condition: Good Referrals: Veronica Carr PACKAGE LINE OPERATOR [Primary Care Provider] - Forms: ED Satisfaction Letter, Work/School Release Time of Disposition: 01:25 ([facility]) General Adult HPI - General Chief complaint: ED General Medical Stated complaint: high blood sugar Time Seen by Provider: 07/12/17 23:24 Source: patient Mode of arrival: ambulatory Limitations: no limitations Nursing Notes Reviewed: Yes Vital Signs Reviewed: Yes - History of Present Illness HPI Narrative: Patient presents to the emergency room having increasing elevated glucoses not feeling very well nauseated and no vomiting no fevers no chills no lightheadedness no dizziness patient states that she is having abdominal cramping she denies any burning or urgency staying and she states that she does go frequently Patient's been dealing with elevated sugars here more so frequently than in the past she has been following with her family physician who is also been having her follow-up nephrology to monitor her renal function which has been slowly decreasing 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 Denies: confusion, chest pain, cough, diaphoresis, headaches, seizure, shortness of breath, syncope Treatments Prior to Arrival: none - Related Data Home Medications Medication Instructions Recorded Confirmed Insulin Glargine [Lantus] 20 unit QPM 11/21/16 07/12/17 Promethazine [Phenergan] 25 mg PO Q12H PRN 02/02/17 07/12/17 Previous Rx's Medication Instructions Recorded Simvastatin [Zocor] 10 mg PO HS tablet 11/30/16 Magnesium Oxide [Mag-Ox] 400 mg PO DAILY #7 tablet 06/03/17 Metoclopramide HCl 5 mg PO ACHS #120 tablet 06/03/17 Pregabalin [Lyrica] 50 mg PO BID #60 capsule 06/03/17 Allergies Allergy/AdvReac Type Severity Reaction Status Date / Time Sulfa (Sulfonamide Allergy Hives Verified 05/31/17 17:29 Antibiotics) acetaminophen [From Tylenol] AdvReac Anaphylaxis Verified 05/31/17 17:29 gabapentin [From Neurontin] AdvReac Hallucinati Verified 05/31/17 17:29 ng hydrocodone AdvReac Hives Verified 05/31/17 17:29 ibuprofen AdvReac Hives Verified 05/31/17 17:29 All systems ED: reviewed and negative except as stated. Review of Systems: As Per HPI Constitutional: Reports: fever, weakness. Denies: chills Eyes: Denies: eye pain ENT ED: Denies: ear pain, congestion Cardiovascular: Denies: chest pain, palpitations Respiratory: Denies: cough, dyspnea, wheezes Gastrointestinal: Reports: abdominal pain, nausea. Denies: vomiting Genitourinary: Reports: frequency. Denies: urgency, dysuria Musculoskeletal: Denies: back pain, neck pain, joint swelling Integumentary: Denies: rash, abrasion Neurological: Denies: headache, weakness, numbness Psychiatric: Denies: anxiety, depression Endocrine: Reports: fatigue, polydipsia, polyuria Hematological/Lymphatic: Denies: easy bleeding Allergic/Immunologic: Denies: facial swelling Past Medical History - Past Medical History Attestation: Yes The following information was validated with the patient. 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 - Social History Smoking Status: Former smoker Smokeless Tobacco Status: No Alcohol use: Reports: none Drug use: Reports: none Physical Exam - General Limitations: no limitations General appearance: alert, in no apparent distress, anxious - Head Head exam: atraumatic, normocephalic, normal inspection - Eye Eye exam: Present: normal appearance, EOMI, other (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 Absent: mass, pulsatile mass - Extremities Exam Extremities exam: Present: normal inspection, full ROM, normal capillary refill. Absent: tenderness, pedal edema, joint swelling, calf tenderness - Expanded Lower Extremity Exam Neurovascular/Tendon exam: Present: normal capillary refill. Absent: normal 2- point discrimination Gait: observed and normal - Back Exam Back exam: Present: normal inspection, full ROM. Absent: muscle spasm - Neurological Exam Neurological exam: Present: alert, oriented X3, CN II-XII intact - Psychiatric Psychiatric exam: Present: normal affect, normal mood - Skin Skin exam: Present: warm, dry, intact, normal color Course Course Narrative: Patient seen examined patient had an IV established is given fluids patient ordered a gram Rocephin after evaluation of the urine waiting results officially patient's white count was normal at patient showing renal insufficiency with evaluation of year and this may be the etiology for why she is having elevated glucose patient will be admitted for observation transferred to [facility] Vital Signs Temperature 97.3 F L 07/12/17 23:21 Pulse Rate 85 07/12/17 23:21 Respiratory Rate 18 07/12/17 23:21 Blood Pressure 174/86 07/12/17 23:21 O2 Sat by Pulse Oximetry 99 07/12/17 23:21 Temperature 97.3 F L 07/12/17 23:21 Pulse Rate 82 07/13/17 01:23 Respiratory Rate 16 07/13/17 01:23 Blood Pressure 151/60 07/13/17 01:23 O2 Sat by Pulse Oximetry 90 07/13/17 01:23 Oxygen Delivery Oxygen Delivery Room Air Medical Decision Making - [facility] Narrative Medical decision making narrative: Hyperglycemia considerations do include the possibilities of noncontrolled diabetic or infection etiology metabolic imbalance even stress - Medical Records Medical records reviewed: Yes I reviewed the patient's medical records. - Lab Data Lab results reviewed: Yes I reviewed the patient's lab results. Result diagrams: 07/13/17 00:10 07/13/17 00:10 Lab Results 07/13/17 07/13/17 Range/Units 00:10 00:10 WBC 5.0 (4.3-11.1) K/mcL RBC 3.56 L (3.82-4.97) M/mcL Hgb 10.8 L (11.5-15.4) g/dL Hct 32.8 L (35.3-44.9) % MCV 92.1 (83.0-100.0) fL MCH 30.3 (28.0-33.3) pg MCHC 32.9 (31.6-35.5) g/dL RDW 13.0 (11.5-14.5) % Plt Count 220 (140-400) K/mcL MPV 11.8 (9.4-12.4) fL Immature Gran % 0.2 (0-4) % Seg Neutrophils % 58.9 % Lymphocytes % 31.1 % Monocytes % 6.6 % Eosinophils % 2.8 % Basophils % 0.4 % Neutrophils # 2.9 (1.6-8.9) K/mcL Lymphocytes # 1.6 (0.6-4.6) K/mcL Monocytes # 0.3 (0.0-1.3) K/mcL Eosinophils # 0.1 (0.0-0.6) K/mcL Basophils # 0.0 (0.0-0.2) K/mcL Sodium 137 (136-145) mEq/L Potassium 4.9 H (3.5-4.5) mEq/L Chloride 104 (98-109) mEq/L Carbon Dioxide 20 (19-29) mEq/L BUN 16 (7-20) mg/dL Creatinine 1.81 H (0.57-1.11) mg/dL Est GFR ( Amer) 34 L (> 60) Est GFR (Non-Af Amer) 28 L (> 60) BUN/Creatinine Ratio 9 (6-26) Glucose 368 H (70-99) mg/dL Calculated Osmolality 300 (280-300) Calcium 9.3 (8.6-10.8) mg/dL Beta-Hydroxybutyric Acd 0.22 (0.02-0.27) mmol/L Critical Care Time Critical Care Time: No
[2017-07-12] MEDS ORDERED: Ondansetron 4 MG/2 ML VIAL IVP ONE (23:31)
[2017-07-12] MEDS ORDERED: 0.9 % Sodium Chloride 1,000 ML IVC ONE (23:31)
[2017-07-13 00:32] LABS: Basophils % 0.4 %; Eosinophils # 0.1 K/mcL (0.0-0.6); Eosinophils % 2.8 %; Hematocrit 32.8 % (35.3-44.9); Hemoglobin 10.8 g/dL (11.5-15.4); Immature Granulocytes % 0.2 % (0-4); Lymphocytes # 1.6 K/mcL (0.6-4.6); Lymphocytes % 31.1 %; Mean Corpuscular HGB Conc 32.9 g/dL (31.6-35.5); Mean Corpuscular Hemoglobin 30.3 pg (28.0-33.3); Mean Corpuscular Volume 92.1 fL (83.0-100.0); Mean Platelet Volume 11.8 fL (9.4-12.4); Monocytes # 0.3 K/mcL (0.0-1.3); Monocytes % 6.6 %; Neutrophils # 2.9 K/mcL (1.6-8.9); Platelet Count 220 K/mcL (140-400); Red Blood Count 3.56 M/mcL (3.82-4.97); Segmented Neutrophils % 58.9 %
[2017-07-13 00:47] LABS: Calcium 9.3 mg/dL (8.6-10.8); Potassium 4.9 mEq/L (3.5-4.5)
[2017-07-13 01:20] LABS: Beta-Hydroxybutyric Acid 0.22 mmol/L (0.02-0.27)
[2017-07-13] MEDS ORDERED: Ondansetron ODT 4 MG TAB.RAPDIS SL PRN (02:04)
[2017-07-13] MEDS ORDERED: D5% in Water 1,000 ML IVC PRN (02:04)
[2017-07-13] MEDS ORDERED: Acetaminophen 325 MG TABLET PO PRN (02:04)
[2017-07-13] MEDS ORDERED: Dextrose Gel 15 GM PO PRN ×2 (02:04)
[2017-07-13] MEDS ORDERED: Naloxone 0.4 MG/ML INJ IVP PRN (02:04)
[2017-07-13] MEDS ORDERED: *HR* Dextrose 50 % in Water (Syg) 50 ML SYRINGE IVP PRN (02:04)
[2017-07-13 02:32] LABS: Bilirubin,Urine Negative (Negative); Blood,Urine Small (Negative); Clarity,Urine Cloudy (Clear); Glucose,Urine (UA) >=1000 mg/dL (Normal); Ketones,Urine Negative (Negative); Leukocyte Esterase,Urine Moderate (Negative); Nitrite,Urine Negative (Negative); Protein,Urine 100 mg/dL (Neg-Trace); Specific Gravity,Urine 1.015 (1.010-1.025); Urobilinogen,Urine Normal (Normal)
[2017-07-13 02:34] LABS: Color,Urine Light Yellow (Yellow)
[2017-07-13 02:42] LABS: Squamous Epithelial Cell,Urine Many per lpf (None-Few); WBC,Urine TNTC per hpf (0-3)
[2017-07-13 02:43] LABS: Bacteria,Urine Many per hpf (None-Few); RBC,Urine 0-3 per hpf (0-3); Yeast,Urine Few per hpf (None Seen)
[2017-07-13] MEDS: 0.9 % Sodium Chloride 1,000 ML IVC SCH ×2 (03:04→14:19)
[2017-07-13] MEDS ORDERED: *HR* OxyCODONE Immed Rel 5 MG TABLET PO PRN (04:07)
[2017-07-13] MEDS: Pregabalin 50 MG CAPSULE PO SCH ×2 (05:08→21:31)
[2017-07-13] MEDS: Magnesium Oxide 400 MG TABLET PO SCH (07:50)
[2017-07-13] MEDS: Insulin LISPRO 300 UNITS/3 ML VIAL SQ SCH ×3 (07:51→16:22)
[2017-07-13 08:53] LABS: Basophils % 0.3 %; Eosinophils # 0.1 K/mcL (0.0-0.6); Eosinophils % 3.1 %; Hematocrit 27.1 % (35.3-44.9); Hemoglobin 8.8 g/dL (11.5-15.4); Immature Granulocytes % 0.3 % (0-4); Lymphocytes # 1.1 K/mcL (0.6-4.6); Lymphocytes % 28.7 %; Mean Corpuscular HGB Conc 32.5 g/dL (31.6-35.5); Mean Corpuscular Hemoglobin 29.9 pg (28.0-33.3); Mean Corpuscular Volume 92.2 fL (83.0-100.0); Mean Platelet Volume 11.9 fL (9.4-12.4); Monocytes # 0.4 K/mcL (0.0-1.3); Neutrophils # 2.3 K/mcL (1.6-8.9); Platelet Count 170 K/mcL (140-400); Red Blood Count 2.94 M/mcL (3.82-4.97); Red Cell Distribution Width 13.1 % (11.5-14.5); Segmented Neutrophils % 58.6 %
[2017-07-13] MEDS ORDERED: Pregabalin 50 MG CAPSULE PO SCH (09:00)
[2017-07-13 10:55] LABS: Calcium 8.4 mg/dL (8.6-10.8); Potassium 4.4 mEq/L (3.5-4.5)
--- NOTE | 2017-07-13 14:38 | Internal Med History&Physical ---
Date of Encounter: 07/13/17 Time of Encounter: 14:10 Assessment and Plan (1) UTI (urinary tract infection) Current visit: Yes Status: Acute She was given Rocephin in emergency room. We will continue this with lactobacillus. Urine culture has been ordered. Qualifiers: Urinary tract infection type: site unspecified Hematuria presence: without hematuria Qualified Code(s): N39.0 - Urinary tract infection, site not specified (2) Diabetes mellitus, insulin dependent (IDDM), uncontrolled Current visit: Yes Status: Chronic We will check hemoglobin A1c in a.m. Continue Levemir and Accu-Cheks with SSI. Continue Lyrica Qualifiers: Diabetes mellitus complication status: with kidney complications Diabetes mellitus complication detail: with chronic kidney disease Chronic kidney disease stage: stage 3 (moderate) Qualified Code(s): E10.22 - Type 1 diabetes mellitus with diabetic chronic kidney disease; E10.65 - Type 1 diabetes mellitus with hyperglycemia; N18.3 - Chronic kidney disease, stage 3 (moderate) (3) Anemia Current visit: No Status: Chronic Anemia testing done 06/03/2017 showed iron 40, transferrin saturation 23%, transferrin 125, ferritin 124, B12 346, and folate 7.4. Will give a trial of ferrous sulfate with vitamin C. Qualifiers: Anemia type: unspecified type Qualified Code(s): D64.9 - Anemia, unspecified (4) Hypomagnesemia Current visit: No Status: Acute Magnesium level was 1.4 on 06/02/2017. We will recheck in a.m. (5) CKD (chronic kidney disease) stage 3, GFR 30-59 ml/min Current visit: Yes Status: Chronic Will monitor renal indices. Internal Medicine - H&P: HPI Chief complaint: Dizziness and weakness Admitted From: Home Plans for Post Hospital Care: Home History of present illness: Ms. Mohamud is a 66 year old female who came to emergency room stating she had sensation of "spinning" develop while riding in a car from a doctor's appointment yesterday. When she arrived home she took a nap but upon awakening found her legs to be weak. The squad was called and she was brought to emergency room. Evaluation showed probable UTI with hyperglycemia. She was admitted to [facility] floor for ongoing care needs. She was hospitalized approximately 5 weeks ago at [facility] with an admitting diagnosis of UTI. Urine culture however showed no growth and she was not discharged on antibiotics. She states she has had numerous UTIs in the past. She has chronic kidney disease stage III and follows with [place] measurement supervisor. She denies hematuria dysuria or kidney stones. Past Med Surg Social Fam HX - Past Medical History Medical history: CHF, coronary artery disease, diabetes, GERD, hyperlipidemia, hypertension, renal disease Psychiatric history: no psych history - Past Surgical History Surgical History: angioplasty/stent, , hysterectomy - Social History Smoking Status: Former smoker Smokeless Tobacco Status: No Alcohol use: none Drug use: none - Family History Mother Family Member Ethnicity: Non- Living Status: Hx Family Cardiac Disorders: Yes Hx Family Respiratory Disorders: No Hx Family Cancer: No Hx Family GI Disorders: No Hx Family Endocrine Disorder: Yes (diabetes) Hx Family Neuromuscular Disorders: No Hx Family Neurologic Disorders: No Hx Family HEENT Disorders: No Hx Family Autoimmune Disorders: No Father Family Member Ethnicity: Non- Living Status: Hx Family Cardiac Disorders: Yes (chf) Hx Family Respiratory Disorders: No Hx Family Cancer: No Hx Family GI Disorders: No Hx Family Endocrine Disorder: No Hx Family Neuromuscular Disorders: No Hx Family Neurologic Disorders: No Hx Family HEENT Disorders: No Hx Family Autoimmune Disorders: No Internal Medicine - H&P: Meds Insulin Glargine [Lantus] 20 unit QPM 11/21/16 [History] Simvastatin [Zocor] 10 mg PO HS tablet 11/30/16 [Rx] Promethazine [Phenergan] 25 mg PO Q12H PRN 02/02/17 [History] Magnesium Oxide [Mag-Ox] 400 mg PO DAILY #7 tablet 06/03/17 [Rx] Metoclopramide HCl 5 mg PO ACHS #120 tablet 06/03/17 [Rx] Pregabalin [Lyrica] 50 mg PO BID #60 capsule 06/03/17 [Rx] 3 Allergy/AdvReac Type Severity Reaction Status Date / Time Sulfa (Sulfonamide Allergy Hives Verified 05/31/17 17:29 Antibiotics) acetaminophen [From Tylenol] AdvReac Anaphylaxis Verified 05/31/17 17:29 gabapentin [From Neurontin] AdvReac Hallucinati Verified 05/31/17 17:29 ng hydrocodone AdvReac Hives Verified 05/31/17 17:29 ibuprofen AdvReac Hives Verified 05/31/17 17:29 All Systems PM: A 10-system review of systems was performed and is negative for pertinent findings except as documented above in the HPI. Review of systems: Review of systems from her May 2017 [facility] hospitalization were reviewed and revised as below. General: Her weight has decreased from 77.247 kg on 10/27/2015 to 65.771 kg on admission now. Cardiovascular: She has known ASHD with stents placed in 2004 and 2005. There was no preceding OK. Her last cath was 2005 at the time of stent placement. She had an exercise stress test in 2012 which she reports was negative. She denies DVT pulmonary emboli hypertension or heart failure Respiratory: She smoked for approximately 4 years in her early 20s but has no known chronic lung disease. She does not wear home oxygen and does not recall being tested for sleep apnea GI: She has GERD but no known disorder of her liver gallbladder or exocrine pancreas. : As per history of present illness Neurologic: She denies large distribution strokes or seizures. 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 She has hyperlipidemia but no known thyroid disease Hematology/oncology: She denies blood disorders or cancers. She had anemia testing 06/02/2017 showing iron 40, transferrin saturation 23, transferrin 125, ferritin 124, B12 346, and folate 7.4. Psychiatric: She denies anxiety depression or other mental health issues Musk skeletal: She denies arthritis or osteoporosis or gout. She did have elevated uric acid level at 8.0 on 02/13/2016 but it had improved to 6.3 on . She has had right great toe amputation in the distant past - Constitutional Vitals: Temp Pulse Resp BP Pulse Ox 98.0 F 92 14 160/68 92 07/13/17 11:28 07/13/17 11:28 07/13/17 11:28 07/13/17 11:28 07/13/17 11:28 Exam: Gen.: She is a well developed well-nourished female lying quietly in bed who appears in no acute distress. She denies pain or vertigo sensation. HEENT: Head is atraumatic and normocephalic. Eyes: She keeps her left eye closed. The right eye shows EOMI. There is no scleral icterus. Mouth: Mucosa is moist. Neck: There is no thyromegaly or adenopathy noted. Heart: Regular without murmurs gallops or ectopics Lungs: No wheezes or crackles are heard. Abdomen: Soft and nontender. No masses or guarding are noted. Extremities: There is no cyanosis edema or clubbing noted. Dorsalis pedis and posterior tibial pulses are trace palpable bilaterally. She has had right great to amputation. Neurologic: Mental status: She is talkative and a good historian. Cranial nerves: Smile is symmetric. Forehead wrinkles bilaterally. Tongue protrudes midline. EOMI. She has no vertigo on raising up in bed or slight turning of her head. Motor: There is no pronator drift. Cerebellar: Finger to nose is intact bilaterally. Skin: Warm and dry Internal Med - H&P Results - Labs CBC & Chem 7: 07/13/17 07:55 07/13/17 07:55 Labs: Short CBC 07/13/17 Range/Units 07:55 WBC 3.9 L (4.3-11.1) K/mcL Hgb 8.8 L D (11.5-15.4) g/dL Hct 27.1 L (35.3-44.9) % Plt Count 170 (140-400) K/mcL Neutrophils # 2.3 (1.6-8.9) K/mcL BMP 07/13/17 07:55 Sodium 140 Potassium 4.4 Chloride 109 Carbon Dioxide 23 BUN 15 Creatinine 1.41 H Glucose 268 H Calcium 8.4 L
[2017-07-13] MEDS ORDERED: Insulin DETEMIR 100 UNIT/ML X5UNITS SQ SCH (18:00)
[2017-07-13] MEDS ORDERED: NON-FORMULARY MEDICATION 1 EACH EACH (Insulin Glargine [Lantus] 20 UNIT) SQ SCH (18:00)
[2017-07-13] MEDS: Lactobacillus 1 EACH CAP.SPRINK PO SCH (21:31)
[2017-07-14 05:21] LABS: Basophils % 0.6 %; Eosinophils # 0.2 K/mcL (0.0-0.6); Eosinophils % 3.6 %; Hematocrit 28.1 % (35.3-44.9); Hemoglobin 9.1 g/dL (11.5-15.4); Immature Granulocytes % 0.2 % (0-4); Lymphocytes # 1.6 K/mcL (0.6-4.6); Lymphocytes % 33.8 %; Mean Corpuscular HGB Conc 32.4 g/dL (31.6-35.5); Mean Corpuscular Hemoglobin 29.7 pg (28.0-33.3); Mean Corpuscular Volume 91.8 fL (83.0-100.0); Mean Platelet Volume 11.3 fL (9.4-12.4); Monocytes # 0.3 K/mcL (0.0-1.3); Monocytes % 6.8 %; Neutrophils # 2.6 K/mcL (1.6-8.9); Platelet Count 182 K/mcL (140-400); Red Blood Count 3.06 M/mcL (3.82-4.97); Red Cell Distribution Width 13.1 % (11.5-14.5)
[2017-07-14 05:42] LABS: Calcium 8.7 mg/dL (8.6-10.8); Magnesium 1.4 mg/dL (1.6-2.6); Potassium 4.6 mEq/L (3.5-4.5)
[2017-07-14] MEDS ORDERED: Ascorbic Acid 500 MG TABLET PO SCH (06:30)
[2017-07-14 07:08] VITALS: BP 148/54
[2017-07-14] MEDS: Insulin LISPRO 300 UNITS/3 ML VIAL SQ SCH (07:57)
[2017-07-14] MEDS: Magnesium Oxide 400 MG TABLET PO SCH (07:58)
[2017-07-14] MEDS: Lactobacillus 1 EACH CAP.SPRINK PO SCH (07:58)
[2017-07-14] MEDS: Pregabalin 50 MG CAPSULE PO SCH (07:58)
--- NOTE | 2017-07-14 10:44 | Discharge Summary ---
Date of Encounter: 07/14/17 Time of Encounter: 10:15 - Discharge Diagnosis (1) UTI (urinary tract infection) Priority: Primary Status: Acute Qualifiers: Urinary tract infection type: site unspecified Hematuria presence: without hematuria Qualified Code(s): N39.0 - Urinary tract infection, site not specified (2) Diabetes mellitus, insulin dependent (IDDM), uncontrolled Priority: Secondary Status: Chronic Qualifiers: Diabetes mellitus complication status: with kidney complications Diabetes mellitus complication detail: with chronic kidney disease Chronic kidney disease stage: stage 3 (moderate) Qualified Code(s): E10.22 - Type 1 diabetes mellitus with diabetic chronic kidney disease; E10.65 - Type 1 diabetes mellitus with hyperglycemia; N18.3 - Chronic kidney disease, stage 3 (moderate) (3) Anemia Priority: Secondary Status: Chronic Qualifiers: Anemia type: unspecified type Qualified Code(s): D64.9 - Anemia, unspecified (4) Hypomagnesemia Priority: Secondary Status: Acute (5) CKD (chronic kidney disease) stage 3, GFR 30-59 ml/min Priority: Secondary Status: Chronic - Discharge Medications Prescriptions: Cefuroxime PO [Ceftin] 500 mg PO Q12HR #6 tablet Ascorbic Acid [Vitamin C] 500 mg PO DAILY #30 tablet.er Ferrous Sulfate 325 mg PO DAILY #30 tablet Lactobacillus [Culturelle] 1 each PO BID #6 cap.sprink Magnesium Oxide [Mag-Ox] 400 mg PO BID #6 tablet Home Medications: Insulin Glargine [Lantus] 20 unit QPM 11/21/16 [History] Simvastatin [Zocor] 10 mg PO HS tablet 11/30/16 [Rx] Promethazine [Phenergan] 25 mg PO Q12H PRN 02/02/17 [History] Metoclopramide HCl 5 mg PO ACHS #120 tablet 06/03/17 [Rx] Pregabalin [Lyrica] 50 mg PO BID #60 capsule 06/03/17 [Rx] Ascorbic Acid [Vitamin C] 500 mg PO DAILY #30 tablet.er 07/14/17 [Rx] Cefuroxime PO [Ceftin] 500 mg PO Q12HR #6 tablet 07/14/17 [Rx] Ferrous Sulfate 325 mg PO DAILY #30 tablet 07/14/17 [Rx] Lactobacillus [Culturelle] 1 each PO BID #6 cap.sprink 07/14/17 [Rx] Magnesium Oxide [Mag-Ox] 400 mg PO BID #6 tablet 07/14/17 [Rx] Allergies/Adverse Reactions: 3 Allergy/AdvReac Type Severity Reaction Status Date / Time Sulfa (Sulfonamide Allergy Hives Verified 05/31/17 17:29 Antibiotics) acetaminophen [From Tylenol] AdvReac Anaphylaxis Verified 05/31/17 17:29 gabapentin [From Neurontin] AdvReac Hallucinati Verified 05/31/17 17:29 ng hydrocodone AdvReac Hives Verified 05/31/17 17:29 ibuprofen AdvReac Hives Verified 05/31/17 17:29 Date of admission: 07/13/17 01:49 Primary care physician: Juliana Abdi - Patient Status Disposition: Home, Self-Care Condition: Good Functional capacity at discharge: independent ambulation Overall status at discharge: patient is progressing back to baseline - Discharge Instructions Follow Up With: Veronica Carr, CHROME TANNING DRUM OPERATOR [Primary Care Provider] - 1 week - Diet and Activity Activity: resume usual activities as tolerated Diet: diabetic diet Hospital course: Ms. Mohamud is a 66 year old female who came to emergency room stating she had sensation of "spinning" develop while riding in a car from a doctor's appointment yesterday. When she arrived home she took a nap but upon awakening found her legs to be weak. The squad was called and she was brought to emergency room. Evaluation showed probable UTI with hyperglycemia. She was admitted to [facility] floor for ongoing care needs. Initial orders were written by the emergency room physician. I saw her on July 13 and performed history and physical. She was given Rocephin empirically for UTI. Lactobacillus was ordered. Urine culture returned showing no growth. She will continue with Ceftin and lactobacillus for 3 additional days at discharge. She will discuss with her PCP a trial of prophylactic suppressive antibiotic therapy to see if UTIs decrease in frequency. Hemoglobin A1c was ordered with results pending time of this dictation. Magnesium returned low at 1.4. Magnesium oxide dose will be increased to twice a day. Anemia testing from 06/03/2017 was reviewed. I will give her a trial of ferrous sulfate with vitamin C. On July 14 I felt she was stable for discharge home. She will follow with her PCP 07/17/2017 as scheduled. - Time Spent with Patient Total time spent providing and/or coordinating discharge services: - Constitutional Vitals: Temp Pulse Resp BP Pulse Ox 98.6 F 81 18 148/54 97 07/14/17 07:07 07/14/17 07:07 07/14/17 07:07 07/14/17 07:07 07/14/17 07:07
== END 2017-07-14 12:30 | disposition home or self-care (01) ==
LOC: EMEROOPIK 23:17 → INPPIK 23:17
PROVIDERS: ADMIT Internal Medicine; ATTEND Internal Medicine

== ENCOUNTER 2017-09-07 15:04 | Observation (INO) ==
--- NOTE | 2017-09-07 15:16 | Emergency Department Note ---
Disposition Clinical Impression: Chest pain Qualifiers: Chest pain type: precordial pain Qualified Code(s): R07.2 - Precordial pain CHF (congestive heart failure) Qualifiers: Congestive heart failure type: systolic Congestive heart failure chronicity: acute Qualified Code(s): I50.21 - Acute systolic (congestive) heart failure Disposition: Admitted As Inpatient Condition: Good Referrals: Veronica Carr COMPETITIVE INTELLIGENCE ANALYST [Primary Care Provider] - Forms: ED Satisfaction Letter Time of Disposition: 18:43 Chest Pain HPI - General Chief Complaint: ED Chest Pain Stated Complaint: Chest pain Time Seen by Provider: 09/07/17 15:10 Source: patient Mode of arrival: EMS Limitations: no limitations Vital Signs Reviewed: Yes Nursing Notes Reviewed: Yes - History of Present Illness HPI Narrative: 66-year-old white female with onset of substernal pressure-like chest pain around 11 PM yesterday evening. She states she finally fell asleep and when she woke up this morning around noon pain was still there. She states the pain is mild, but she rates at a level VIII. It is substernal and pressure-like. She feels short of breath and nauseated. No neck or arm pain. She did not take anything for the pain at home. Take it feels similar to previous pain she had with her angina in the past. Pt complaint: chest pain Onset (ago): hour(s) (14) Time: 23:00 Duration: constant Onset: during rest Pain Location: substernal Severity scale (1-10): 8 Quality: aching, heaviness Pain Radiation: none Improves with: nothing Worsens with: nothing Context: other (History of coronary artery disease with stents) Associated symptoms: Reports: nausea, dyspnea Treatments prior to arrival chest pain: aspirin (325 mg), oxygen - Related Data Home Medications Medication Instructions Recorded Confirmed Insulin Glargine [Lantus] 20 unit QPM 11/21/16 07/12/17 Promethazine [Phenergan] 25 mg PO Q12H PRN 02/02/17 07/12/17 Previous Rx's Medication Instructions Recorded Simvastatin [Zocor] 10 mg PO HS tablet 11/30/16 Metoclopramide HCl 5 mg PO ACHS #120 tablet 06/03/17 Pregabalin [Lyrica] 50 mg PO BID #60 capsule 06/03/17 Ascorbic Acid [Vitamin C] 500 mg PO DAILY #30 tablet.er 07/14/17 Cefuroxime PO [Ceftin] 500 mg PO Q12HR #6 tablet 07/14/17 Ferrous Sulfate 325 mg PO DAILY #30 tablet 07/14/17 Lactobacillus [Culturelle] 1 each PO BID #6 cap.sprink 07/14/17 Magnesium Oxide [Mag-Ox] 400 mg PO BID #6 tablet 07/14/17 Allergies Allergy/AdvReac Type Severity Reaction Status Date / Time Sulfa (Sulfonamide Allergy Hives Verified 05/31/17 17:29 Antibiotics) acetaminophen [From Tylenol] AdvReac Anaphylaxis Verified 05/31/17 17:29 gabapentin [From Neurontin] AdvReac Hallucinati Verified 05/31/17 17:29 ng hydrocodone AdvReac Hives Verified 05/31/17 17:29 ibuprofen AdvReac Hives Verified 05/31/17 17:29 All systems ED: reviewed and negative except as stated. Constitutional: Denies: fever, chills ENT ED: Denies: ear pain, throat pain Cardiovascular: Reports: chest pain. Denies: palpitations Respiratory: Reports: dyspnea. Denies: cough, wheezes, hemoptysis, sputum production Gastrointestinal: Reports: nausea. 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 Absent: lymphadenopathy, thyromegaly - Chest Chest inspection: Present: normal inspection, symmetric chest wall rise. Absent : tenderness - Respiratory Respiratory exam: Present: normal lung sounds bilaterally. Absent: respiratory distress, wheezes - Cardiovascular Cardiovascular exam: Present: regular rate, normal rhythm, normal heart sounds - Abdominal Exam Abdominal exam: Present: soft, Non-Tender, normal bowel sounds. Absent: organomegaly, mass - Extremities Exam Extremities exam: Present: normal inspection, full ROM, normal capillary refill , pedal edema (1+ nonpitting edema both lower extremities below the knee). Absent: tenderness, calf tenderness - Neurological Exam Neurological exam: Present: alert, oriented X3. Absent: motor sensory deficit - Psychiatric Psychiatric exam: Present: normal affect, normal mood - Skin Skin exam: Present: warm, dry, intact, normal color. Absent: cyanosis, diaphoresis Course Vital Signs Temperature 98.1 F 09/07/17 15:06 Pulse Rate 79 09/07/17 15:06 Respiratory Rate 14 09/07/17 15:06 Blood Pressure 132/87 09/07/17 15:06 O2 Sat by Pulse Oximetry 96 09/07/17 15:06 Temperature 98.1 F 09/07/17 15:06 Pulse Rate 73 09/07/17 18:30 Respiratory Rate 18 09/07/17 18:30 Blood Pressure 182/75 09/07/17 18:30 O2 Sat by Pulse Oximetry 98 09/07/17 18:30 Oxygen Delivery Oxygen Delivery Nasal Cannula Procedures - EJ/Peripheral Line Neck R Consent Obtained: verbal consent Time Out Performed: Yes Skin Cleansed in Sterile Fashion: Yes Size: 18 IV Secured and Dressing Applied: Yes Patient Tolerated Procedure: well, no complications Chest Pain - MDM Narrative Medical decision making narrative: Differential includes but is not limited to GERD, esophageal spasm, chest wall pain, angina, myocardial infarction, pneumothorax, pleural effusion, congestive heart failure, pneumonia. Her chest discomfort was relieved with 2 nitroglycerin. She is pain-free. She had some chest x-ray changes with an elevated BNP consistent with mild congestive heart failure. She was given Lasix. She feels better. Her pain is not typical pulmonary embolus, I do not think she needs a CTA. I discussed case with the hospitalist, Dr. Oliveros. We will place the patient in observation telemetry bed with serial cardiac enzymes. - Lab Data Lab results reviewed: Yes I reviewed the patient's lab results. Result diagrams: 09/07/17 15:23 11/25/17 15:23 Lab Results 09/07/17 09/07/17 09/07/17 Range/Units 15:23 15:23 15:23 WBC 5.8 (4.3-11.1) K/mcL RBC 2.98 L (3.82-4.97) M/mcL Hgb 8.9 L (11.5-15.4) g/dL Hct 27.5 L (35.3-44.9) % MCV 92.3 (83.0-100.0) fL MCH 29.9 (28.0-33.3) pg MCHC 32.4 (31.6-35.5) g/dL RDW 13.2 (11.5-14.5) % Plt Count 177 (140-400) K/mcL MPV 11.3 (9.4-12.4) fL Immature Gran % 0.3 (0-4) % Seg Neutrophils % 67.3 % Lymphocytes % 22.8 % Monocytes % 6.7 % Eosinophils % 2.6 % Basophils % 0.3 % Neutrophils # 3.9 (1.6-8.9) K/mcL Lymphocytes # 1.3 (0.6-4.6) K/mcL Monocytes # 0.4 (0.0-1.3) K/mcL Eosinophils # 0.2 (0.0-0.6) K/mcL Basophils # 0.0 (0.0-0.2) K/mcL D-Dimer 961 H (0-500) ng/mLFEU Sodium 141 (136-145) mEq/L Potassium 3.9 (3.5-4.5) mEq/L Chloride 109 (98-109) mEq/L Carbon Dioxide 26 (19-29) mEq/L BUN 25 H (7-20) mg/dL Creatinine 1.36 H (0.57-1.11) mg/dL Est GFR ( Amer) 47 L (> 60) Est GFR (Non-Af Amer) 39 L (> 60) BUN/Creatinine Ratio 18 (6-26) Glucose 135 H (70-99) mg/dL Calculated Osmolality 298 (280-300) Calcium 8.8 (8.6-10.8) mg/dL Total Bilirubin 0.3 (0.2-1.2) mg/dL AST 15 (5-34) Units/L ALT 11 (0-55) Units/L Alkaline Phosphatase 129 H (38-126) Units/L Troponin I (0-0.03) ng/mL B-Natriuretic Peptide (0-100) pg/mL Serum Total Protein 7.0 (6.0-8.3) g/dL Albumin 2.9 L (3.5-5.0) g/dL Globulin 4.1 H (2.4-3.5) g/dL Albumin/Globulin Ratio 0.7 L (1.1-2.2) 09/07/17 09/07/17 09/07/17 Range/Units 15:23 15:23 17:39 WBC (4.3-11.1) K/mcL RBC (3.82-4.97) M/mcL Hgb (11.5-15.4) g/dL Hct (35.3-44.9) % MCV (83.0-100.0) fL MCH (28.0-33.3) pg MCHC (31.6-35.5) g/dL RDW (11.5-14.5) % Plt Count (140-400) K/mcL MPV (9.4-12.4) fL Immature Gran % (0-4) % Seg Neutrophils % % Lymphocytes % % Monocytes % % Eosinophils % % Basophils % % Neutrophils # (1.6-8.9) K/mcL Lymphocytes # (0.6-4.6) K/mcL Monocytes # (0.0-1.3) K/mcL Eosinophils # (0.0-0.6) K/mcL Basophils # (0.0-0.2) K/mcL D-Dimer (0-500) ng/mLFEU Sodium (136-145) mEq/L Potassium (3.5-4.5) mEq/L Chloride (98-109) mEq/L Carbon Dioxide (19-29) mEq/L BUN (7-20) mg/dL Creatinine (0.57-1.11) mg/dL Est GFR ( Amer) (> 60) Est GFR (Non-Af Amer) (> 60) BUN/Creatinine Ratio (6-26) Glucose (70-99) mg/dL Calculated Osmolality (280-300) Calcium (8.6-10.8) mg/dL Total Bilirubin (0.2-1.2) mg/dL AST (5-34) Units/L ALT (0-55) Units/L Alkaline Phosphatase (38-126) Units/L Troponin I 0.02 0.02 (0-0.03) ng/mL B-Natriuretic Peptide 984 H (0-100) pg/mL Serum Total Protein (6.0-8.3) g/dL Albumin (3.5-5.0) g/dL Globulin (2.4-3.5) g/dL Albumin/Globulin Ratio (1.1-2.2) - Radiology Data Radiology results reviewed: Yes I reviewed the patient's radiology results. - EKG Data EKG attestation: Yes I reviewed and interpreted this EKG. EKG results narrative: Sinus rhythm, rate of 79, no acute ST-T wave changes. Rhythm strip shows sinus rhythm with rate of 79, VT interval 190 ms, QRS of 85 ms with no other ectopy is interpreted by me. This is compared to a tracing dated 02/02/17, no change.
[2017-09-07 15:30] LABS: Basophils % 0.3 %; Eosinophils # 0.2 K/mcL (0.0-0.6); Eosinophils % 2.6 %; Hematocrit 27.5 % (35.3-44.9); Hemoglobin 8.9 g/dL (11.5-15.4); Immature Granulocytes % 0.3 % (0-4); Lymphocytes # 1.3 K/mcL (0.6-4.6); Lymphocytes % 22.8 %; Mean Corpuscular HGB Conc 32.4 g/dL (31.6-35.5); Mean Corpuscular Hemoglobin 29.9 pg (28.0-33.3); Mean Corpuscular Volume 92.3 fL (83.0-100.0); Mean Platelet Volume 11.3 fL (9.4-12.4); Monocytes # 0.4 K/mcL (0.0-1.3); Monocytes % 6.7 %; Neutrophils # 3.9 K/mcL (1.6-8.9); Platelet Count 177 K/mcL (140-400); Red Blood Count 2.98 M/mcL (3.82-4.97); Red Cell Distribution Width 13.2 % (11.5-14.5); Segmented Neutrophils % 67.3 %
[2017-09-07 15:45] LABS: Albumin 2.9 g/dL (3.5-5.0); Albumin/Globulin Ratio 0.7 (1.1-2.2); Bilirubin,Total 0.3 mg/dL (0.2-1.2); Calcium 8.8 mg/dL (8.6-10.8); Globulin 4.1 g/dL (2.4-3.5); Potassium 3.9 mEq/L (3.5-4.5)
[2017-09-07] MEDS: Nitroglycerin 0.4 MG TAB.SUBL SL PRN ×2 (16:33→16:39)
[2017-09-07] MEDS ORDERED: Furosemide 20 MG/2 ML VIAL IVP ONE (17:02)
[2017-09-07] MEDS ORDERED: Naloxone 0.4 MG/ML INJ IVP PRN (20:18)
[2017-09-07] MEDS ORDERED: Acetaminophen 325 MG TABLET PO PRN (20:18)
[2017-09-07] MEDS ORDERED: Nitroglycerin 0.4 MG TAB.SUBL SL PRN (20:18)
[2017-09-07] MEDS ORDERED: Dextrose Gel 15 GM PO PRN ×2 (20:18)
[2017-09-07] MEDS ORDERED: D5% in Water 1,000 ML IVC PRN (20:18)
[2017-09-07] MEDS ORDERED: Ondansetron ODT 4 MG TAB.RAPDIS SL PRN (20:18)
[2017-09-07] MEDS ORDERED: *HR* Dextrose 50 % in Water (Syg) 50 ML SYRINGE IVP PRN (20:18)
[2017-09-07] MEDS: Magnesium Oxide 400 MG TABLET PO SCH (21:43)
[2017-09-07] MEDS: Pregabalin 50 MG CAPSULE PO SCH (21:43)
[2017-09-08] MEDS: Insulin LISPRO 300 UNITS/3 ML VIAL SQ SCH ×3 (08:06→16:12)
[2017-09-08] MEDS: Pregabalin 50 MG CAPSULE PO SCH ×2 (08:16→20:26)
[2017-09-08] MEDS: Furosemide 20 MG TABLET PO SCH (08:16)
[2017-09-08] MEDS: Magnesium Oxide 400 MG TABLET PO SCH ×2 (08:16→20:25)
[2017-09-08 09:38] LABS: Hemoglobin A1C 9.1 %
--- NOTE | 2017-09-08 10:55 | Internal Med History&Physical ---
Date of Encounter: 09/08/17 Time of Encounter: 10:25 Assessment and Plan (1) Chest pain Current visit: Yes Status: Acute Repeat cardiac enzymes were ordered through emergency room. I will start Imdur and she will be given Nitrostat at discharge for prn use. Qualifiers: Chest pain type: precordial pain Qualified Code(s): R07.2 - Precordial pain (2) Elevated brain natriuretic peptide (BNP) level Current visit: Yes Status: Acute September 08. Will order echocardiogram (3) Anemia Current visit: No Status: Chronic September 08. Will order anemia testing Qualifiers: Anemia type: unspecified type Qualified Code(s): D64.9 - Anemia, unspecified (4) Hypomagnesemia Current visit: No Status: Acute September 08. Will order magnesium level (5) CKD (chronic kidney disease) stage 3, GFR 30-59 ml/min Current visit: No Status: Chronic September 08. Will monitor renal indices. Internal Medicine - H&P: HPI Chief complaint: Chest discomfort Admitted From: Home Plans for Post Hospital Care: Home History of present illness: Ms. Mohamud is a 66 year old female who came to emergency room stating she had developed some discomfort in her chest approximately 11 PM on 09/06/2017 while doing light housework. She reports the discomfort was gradual in onset and describes it as a sensation of heaviness in her mid chest area. She lay down in bed with slight improvement but the pain persisted into the next day. She then took an aspirin with no significant relief. She came to emergency room and was evaluated and admitted to [facility] floor for ongoing care needs. She states she is pain-free at this time. She has had previous similar pain on several occasions previously with exertion. She reports the pains are gradually increasing in frequency and occurring sooner after onset of activity. She has known ASHD with stents placed in 2004 and 2005. There was no preceding PR. Her last cath was 2005 at the time of stent placement. She had an exercise stress test in 2012 which she reports was negative. She denies DVT pulmonary emboli hypertension or heart failure. Past Med Surg Social Fam HX - Past Medical History Medical history: CHF, coronary artery disease, diabetes, GERD, hyperlipidemia, hypertension, renal disease Psychiatric history: no psych history - Past Surgical History Surgical History: angioplasty/stent, , hysterectomy - Social History Smoking Status: Former smoker Smokeless Tobacco Status: No Alcohol use: none Drug use: none - Family History Mother Family Member Ethnicity: Non- Living Status: Hx Family Cardiac Disorders: Yes Hx Family Respiratory Disorders: No Hx Family Cancer: No Hx Family GI Disorders: No Hx Family Endocrine Disorder: Yes (diabetes) Hx Family Neuromuscular Disorders: No Hx Family Neurologic Disorders: No Hx Family HEENT Disorders: No Hx Family Autoimmune Disorders: No Father Family Member Ethnicity: Non- Living Status: Hx Family Cardiac Disorders: Yes (chf) Hx Family Respiratory Disorders: No Hx Family Cancer: No Hx Family GI Disorders: No Hx Family Endocrine Disorder: No Hx Family Neuromuscular Disorders: No Hx Family Neurologic Disorders: No Hx Family HEENT Disorders: No Hx Family Autoimmune Disorders: No Internal Medicine - H&P: Meds Insulin Glargine [Lantus] 20 unit SQ QPM 11/21/16 [History] Metoclopramide HCl 5 mg PO ACHS #120 tablet 06/03/17 [Rx] Pregabalin [Lyrica] 50 mg PO BID #60 capsule 06/03/17 [Rx] Magnesium Oxide [Mag-Ox] 400 mg PO BID #6 tablet 07/14/17 [Rx] Furosemide [Lasix] 20 mg PO DAILY 09/07/17 [History] Insulin ASPART [Novolog Flexpen] 0 unit SQ TID 09/07/17 [History] Lisinopril [Zestril] 5 mg PO DAILY 09/07/17 [History] Simvastatin [Zocor] 5 mg PO BID 09/07/17 [History] 3 Allergy/AdvReac Type Severity Reaction Status Date / Time Sulfa (Sulfonamide Allergy Hives Verified 05/31/17 17:29 Antibiotics) acetaminophen [From Tylenol] AdvReac Anaphylaxis Verified 05/31/17 17:29 gabapentin [From Neurontin] AdvReac Hallucinati Verified 05/31/17 17:29 ng hydrocodone AdvReac Hives Verified 05/31/17 17:29 ibuprofen AdvReac Hives Verified 05/31/17 17:29 All Systems PM: A 10-system review of systems was performed and is negative for pertinent findings except as documented above in the HPI. Review of systems: Review of systems from her June 2017 [facility] hospitalization were reviewed and revised as below. General: Her weight has decreased from 77.247 kg on 10/27/2015 to 63.503 kg on admission now. Cardiovascular: As per history of present illness Respiratory: She smoked for approximately 4 years in her early 20s but has no known chronic lung disease. She does not wear home oxygen and does not recall being tested for sleep apnea GI: She has GERD but no known disorder of her liver gallbladder or exocrine pancreas. : She has had numerous UTIs in the past. She has chronic kidney disease stage III and follows with [facility]. She denies hematuria dysuria or kidney stones. Neurologic: She denies large distribution strokes or seizures. 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 She has hyperlipidemia but no known thyroid disease Hematology/oncology: She denies blood disorders or cancers. She had anemia testing 06/02/2017 showing iron 40, transferrin saturation 23, transferrin 125, ferritin 124, B12 346, and folate 7.4. She was prescribed ferrous sulfate with vitamin C at the time of her last discharge but states she no longer takes it. Psychiatric: She denies anxiety depression or other mental health issues Musk skeletal: She denies arthritis or osteoporosis or gout. She did have elevated uric acid level at 8.0 on 02/13/2016 but it had improved to 6.3 on . She has had right great toe amputation in the distant past - Constitutional Vitals: Temp Pulse Resp BP Pulse Ox 98.8 F 77 18 136/87 98 09/08/17 07:11 09/08/17 08:14 09/08/17 07:11 09/08/17 08:14 09/08/17 08:29 Exam: Gen.: She is a well-developed well-nourished female who appears in no severe distress at present time. HEENT: Head is atraumatic and normal cephalic. Eyes: She does not open her left eye. The right eye shows EOMI with no scleral icterus mouth: Mucosa is moist. Neck: Supple and nontender. There is no thyromegaly or adenopathy noted. Heart: Regular without murmurs gallops or ectopics Lungs: No wheezes or crackles are heard. Abdomen: Soft and nontender. No masses or guarding are noted. Extremities: There is no cyanosis edema or clubbing noted. Dorsalis pedis and posterior tibial pulses are trace palpable bilaterally. She is status post amputation of the right great toe with incision well healed. She has a healed right carpal tunnel surgery scar. Neurologic: Mental status: She is talkative and a good historian. Cranial nerves: Smile is symmetric. Forehead wrinkles bilaterally. Tongue protrudes midline. EOMI. Motor: There is no pronator drift. Cerebellar: Finger to nose is intact bilaterally. Skin: Warm and dry Internal Med - H&P Results - Labs CBC & Chem 7: 09/07/17 15:23 09/07/17 15:23 Labs: Cardiac Enzymes 09/07/17 09/08/17 Range/Units 23:23 05:50 Troponin I 0.01 0.02 (0-0.03) ng/mL
[2017-09-08 11:41] LABS: Magnesium 1.3 mg/dL (1.6-2.6)
[2017-09-08] MEDS: Isosorbide MONOnitrate (24 HR) 30 MG TAB.ER.24H PO SCH (12:55)
[2017-09-08] MEDS ORDERED: NON-FORMULARY MEDICATION 1 EACH EACH (Insulin Glargine [Lantus] 20 UNIT) SQ SCH (18:00)
[2017-09-08] MEDS: Insulin DETEMIR 100 UNIT/ML X5UNITS SQ SCH (20:26)
[2017-09-08 21:19] LABS: Folate 14.6 ng/mL (7.0-31.4)
[2017-09-09 05:42] LABS: Basophils % 0.3 %; Eosinophils # 0.2 K/mcL (0.0-0.6); Eosinophils % 2.7 %; Hematocrit 24.2 % (35.3-44.9); Hemoglobin 7.8 g/dL (11.5-15.4); Immature Granulocytes % 0.2 % (0-4); Lymphocytes # 1.5 K/mcL (0.6-4.6); Lymphocytes % 23.5 %; Mean Corpuscular HGB Conc 32.2 g/dL (31.6-35.5); Mean Corpuscular Hemoglobin 30.6 pg (28.0-33.3); Mean Corpuscular Volume 94.9 fL (83.0-100.0); Mean Platelet Volume 11.6 fL (9.4-12.4); Monocytes # 0.5 K/mcL (0.0-1.3); Monocytes % 7.6 %; Neutrophils # 4.1 K/mcL (1.6-8.9); Platelet Count 160 K/mcL (140-400); Red Blood Count 2.55 M/mcL (3.82-4.97); Red Cell Distribution Width 13.4 % (11.5-14.5); Segmented Neutrophils % 65.7 %
[2017-09-09 05:59] LABS: Calcium 8.3 mg/dL (8.6-10.8); Potassium 4.5 mEq/L (3.5-4.5)
[2017-09-09] MEDS: Insulin LISPRO 300 UNITS/3 ML VIAL SQ SCH ×3 (08:29→16:40)
[2017-09-09] MEDS: Pregabalin 50 MG CAPSULE PO SCH ×2 (08:36→20:43)
[2017-09-09] MEDS: Isosorbide MONOnitrate (24 HR) 30 MG TAB.ER.24H PO SCH (08:36)
[2017-09-09] MEDS: Magnesium Oxide 400 MG TABLET PO SCH ×2 (08:36→20:43)
[2017-09-09] MEDS: Furosemide 20 MG TABLET PO SCH (08:36)
--- NOTE | 2017-09-09 10:37 | Internal Med Progress Note ---
Date of Encounter: 09/09/17 Time of Encounter: 10:20 - Assessment and plan (1) Chest pain Current Visit: Yes Status: Acute Assessment and plan: September 09. Serial cardiac enzymes were negative. I will start isosorbide and metoprolol. Qualifiers: Chest pain type: precordial pain Qualified Code(s): R07.2 - Precordial pain (2) Elevated brain natriuretic peptide (BNP) level Current Visit: Yes Status: Acute Assessment and plan: September 09. Will start Imdur and metoproplol (3) Anemia Current Visit: No Status: Chronic Assessment and plan: September 09. Will give IV iron dextran Qualifiers: Anemia type: unspecified type Qualified Code(s): D64.9 - Anemia, unspecified (4) Hypomagnesemia Current Visit: No Status: Acute Assessment and plan: September 09. She has hypomagnesemia despite use of oral magnesium oxide. I will give IV magnesium sulfate. (5) CKD (chronic kidney disease) stage 3, GFR 30-59 ml/min Current Visit: No Status: Chronic Assessment and plan: September 09. Azotemia has worsened slightly. Discontinue Lasix and monitor renal indices. - Subjective Interval history: September 09. She has no new complaints - Constitutional Vitals: Temp Pulse Resp BP Pulse Ox 98.7 F 71 18 152/53 97 09/09/17 06:43 09/09/17 06:43 09/09/17 06:43 09/09/17 06:43 09/09/17 06:43 Exam: She is resting comfortably in bed and appears in no acute distress. Her affect is bright and cheerful. I reviewed her medications, lab results, and echocardiogram report with her. Internal Medicine: Result - Labs CBC & Chem 7: 09/09/17 05:28 09/09/17 05:28 Labs: Short CBC 09/09/17 Range/Units 05:28 WBC 6.2 (4.3-11.1) K/mcL Hgb 7.8 L (11.5-15.4) g/dL Hct 24.2 L (35.3-44.9) % Plt Count 160 (140-400) K/mcL Neutrophils # 4.1 (1.6-8.9) K/mcL BMP 09/09/17 05:28 Sodium 144 Potassium 4.5 Chloride 110 H Carbon Dioxide 28 BUN 34 H Creatinine 1.66 H Glucose 85 Calcium 8.3 L Cardiac Enzymes 09/08/17 Range/Units 11:24 Troponin I 0.01 (0-0.03) ng/mL - ABG Interpretation ABG results: PT/INR, D-dimer D-Dimer 961 ng/mLFEU (0-500) H 09/07/17 15:23 - Impressions Impressions Echocardiogram 09/08/17 11:45 Impressions: LVEF 65%. Normal LV chamber size and function. Mild concentric left ventricular hypertrophy. Moderate left ventricular diastolic dysfunction. Normal right ventricular structure and function. No evidence of pulmonary hypertension. No significant valvular dysfunction. Left Ventricular Wall Motion: Rest Echo Findings All wall segments showed normal motion. Findings: Study Quality * Technically adequate exam. ECG Findings * Normal sinus rhythm. Left Ventricle * LVEF 65%. * Normal LV chamber size and function. * Mild concentric left ventricular hypertrophy. * Moderate left ventricular diastolic dysfunction. Right Ventricle * Normal right ventricular structure and function. Left Atrium * Mildly dilated left atrium. Right Atrium * Normal right atrial size. Interatrial Septum * No evidence of PFO by color Doppler. Aortic Valve * Trileaflet aortic valve with normal function. * No aortic stenosis. * Trace aortic regurgitation. Mitral Valve * Normal mitral valve structure and function. * No mitral stenosis. * Trace mitral regurgitation. Tricuspid Valve * Normal tricuspid valve structure and function. * Trace tricuspid regurgitation. * No evidence of pulmonary hypertension. Pulmonic Valve * Normal pulmonic valve structure and function. * Trace pulmonic regurgitation. Aorta * Normally sized aortic root. Pericardium * The pericardium appears normal. IVC * Normal IVC dimensions and inspiratory collapse. Pulmonary Artery * Normal visualized portions of the main pulmonary artery. Consult Discharge Plan - Plan Referrals: Veronica Carr, DISABILITY SPECIALIST [Primary Care Provider] - 1 week
[2017-09-09] MEDS ORDERED: Magnesium Sulfate 1 GM in D5% in Water 100 ML IVPB ONE (10:41)
[2017-09-09] MEDS ORDERED: Isosorbide MONOnitrate (24 HR) 30 MG TAB.ER.24H PO SCH (10:45)
--- NOTE | 2017-09-09 10:54 | Electrocardiograph Report ---
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
[2017-09-09] MEDS ORDERED: IRON DEXTRAN COMPLEX IVPB ONE (12:00)
[2017-09-09] MEDS ORDERED: SODIUM CHLORIDE 0.9% IVPB ONE (12:00)
[2017-09-09] MEDS: Insulin DETEMIR 100 UNIT/ML X5UNITS SQ SCH (20:43)
[2017-09-10 05:21] VITALS: BP 127/53
[2017-09-10 06:07] LABS: Basophils % 0.3 %; Eosinophils # 0.2 K/mcL (0.0-0.6); Hematocrit 24.1 % (35.3-44.9); Hemoglobin 7.8 g/dL (11.5-15.4); Immature Granulocytes % 0.3 % (0-4); Lymphocytes % 34.3 %; Mean Corpuscular HGB Conc 32.4 g/dL (31.6-35.5); Mean Corpuscular Hemoglobin 30.5 pg (28.0-33.3); Mean Corpuscular Volume 94.1 fL (83.0-100.0); Mean Platelet Volume 12.2 fL (9.4-12.4); Monocytes # 0.4 K/mcL (0.0-1.3); Neutrophils # 3.2 K/mcL (1.6-8.9); Platelet Count 168 K/mcL (140-400); Red Blood Count 2.56 M/mcL (3.82-4.97); Red Cell Distribution Width 13.3 % (11.5-14.5); Segmented Neutrophils % 55.1 %
[2017-09-10 06:20] LABS: Calcium 8.5 mg/dL (8.6-10.8); Potassium 4.4 mEq/L (3.5-4.5)
[2017-09-10] MEDS: Insulin LISPRO 300 UNITS/3 ML VIAL SQ SCH (08:24)
[2017-09-10] MEDS: Pregabalin 50 MG CAPSULE PO SCH (08:27)
[2017-09-10] MEDS: Magnesium Oxide 400 MG TABLET PO SCH (08:27)
[2017-09-10] MEDS ORDERED: Isosorbide MONOnitrate (24 HR) 30 MG TAB.ER.24H PO SCH (09:00)
--- NOTE | 2017-09-10 09:54 | Discharge Summary ---
Date of Encounter: 09/10/17 Time of Encounter: 09:45 - Discharge Diagnosis (1) Chest pain Priority: Primary Status: Resolved Qualifiers: Chest pain type: precordial pain Qualified Code(s): R07.2 - Precordial pain (2) Elevated brain natriuretic peptide (BNP) level Priority: Secondary Status: Acute (3) Anemia Priority: Secondary Status: Chronic Qualifiers: Anemia type: unspecified type Qualified Code(s): D64.9 - Anemia, unspecified (4) Hypomagnesemia Priority: Secondary Status: Acute (5) CKD (chronic kidney disease) stage 3, GFR 30-59 ml/min Priority: Secondary Status: Chronic - Discharge Medications Prescriptions: Nitroglycerin 0.4 mg SL Q5MIN PRN #1 vial PRN Reason: Chest Pain Isosorbide MONOnitrate (24 HR) [Imdur] 60 mg PO DAILY #30 tab.er.24h Metoprolol XL (24 HR) Succ [Toprol XL] 25 mg PO DAILY #30 tab.er.24h Home Medications: Insulin Glargine [Lantus] 20 unit SQ QPM 11/21/16 [History] Metoclopramide HCl 5 mg PO ACHS #120 tablet 06/03/17 [Rx] Pregabalin [Lyrica] 50 mg PO BID #60 capsule 06/03/17 [Rx] Magnesium Oxide [Mag-Ox] 400 mg PO BID #6 tablet 07/14/17 [Rx] Furosemide [Lasix] 20 mg PO DAILY 09/07/17 [History] Insulin ASPART [Novolog Flexpen] 0 unit SQ TID 09/07/17 [History] Lisinopril [Zestril] 5 mg PO DAILY 09/07/17 [History] Simvastatin [Zocor] 5 mg PO BID 09/07/17 [History] Isosorbide MONOnitrate (24 HR) [Imdur] 60 mg PO DAILY #30 tab.er.24h 09/10/17 [ Rx] Metoprolol XL (24 HR) Succ [Toprol XL] 25 mg PO DAILY #30 tab.er.24h 09/10/17 [ Rx] Nitroglycerin 0.4 mg SL Q5MIN PRN #1 vial 09/10/17 [Rx] Allergies/Adverse Reactions: 3 Allergy/AdvReac Type Severity Reaction Status Date / Time Sulfa (Sulfonamide Allergy Hives Verified 05/31/17 17:29 Antibiotics) acetaminophen [From Tylenol] AdvReac Anaphylaxis Verified 05/31/17 17:29 gabapentin [From Neurontin] AdvReac Hallucinati Verified 05/31/17 17:29 ng hydrocodone AdvReac Hives Verified 05/31/17 17:29 ibuprofen AdvReac Hives Verified 05/31/17 17:29 Procedures/tests Complete & Pending: Procedures Performed prior 72 hours Category Date Time Status EV echocardiogram Routine Y 09/08/17 11:45 Completed Date of admission: 09/07/17 20:07 Primary care physician: Juliana Abdi - Patient Status Disposition: Home, Self-Care Condition: Good Overall status at discharge: patient is progressing back to baseline - Discharge Instructions Follow Up With: Veronica Carr, FIELD PLACEMENT DIRECTOR [Primary Care Provider] - 1 week - Diet and Activity Activity: resume usual activities as tolerated Diet: diabetic diet Hospital course: Ms. Mohamud is a 66 year old female who came to emergency room stating she had developed some discomfort in her chest approximately 11 PM on 09/06/2017 while doing light housework. She reports the discomfort was gradual in onset and describes it as a sensation of heaviness in her mid chest area. She lay down in bed with slight improvement but the pain persisted into the next day. She then took an aspirin with no significant relief. She came to emergency room and was evaluated and admitted to [facility] floor for ongoing care needs. Initial orders were written by the emergency room physician. I saw her on September 08 and performed a history and physical. Repeat cardiac enzymes showed no evidence of myocardial damage. I started her on Imdur which was tolerated well. She had no further chest pain. Echocardiogram showed LVEF 65% with reported moderate LV diastolic dysfunction. There was concentric LVH with the interventricular septum and posterior wall thickness measurements 1.3 cm each. No significant valvular abnormalities were seen. I added Toprol and she will also be given a prescription for Nitrostat for prn use. Anemia testing showed iron 21, transferrin saturation 9%, transferrin 169, ferritin 76, B12 346, and folate 14.6. She was given an IV iron dextran infusion. Magnesium level returned low at 1.3. She was given 1 g of magnesium sulfate IV. Her PCP can monitor labs to ensure magnesium level returns to satisfactory range. Hemoglobin was stable at 7.8 on the day of discharge. Her azotemia was stable during hospitalization with creatinine 1.47 on the day of discharge. On September 10 I felt she was stable for discharge home. She will follow with her PCP Veronica Perdomo CNP within 1 week. Room air oximetry will be checked prior to discharge on 6 minute walk. - Time Spent with Patient Total time spent providing and/or coordinating discharge services: - Constitutional Vitals: Temp Pulse Resp BP Pulse Ox 98.7 F 75 18 127/53 96 09/10/17 05:20 09/10/17 05:20 09/10/17 05:20 09/10/17 05:20 09/10/17 09:48
== END 2017-09-10 11:10 | disposition home or self-care (01) ==
LOC: EMEROOPIK 15:04 → INPPIK 15:04
PROVIDERS: ADMIT Internal Medicine; ATTEND Internal Medicine

== ENCOUNTER 2017-10-09 14:30 | Observation (INO) ==
[2017-10-09] MEDS ORDERED: Ondansetron 4 MG/2 ML VIAL IVP ONE (14:42)
--- NOTE | 2017-10-09 14:45 | Emergency Department Note ---
Disposition Clinical Impression: Urinary tract infection Qualifiers: Urinary tract infection type: acute cystitis Hematuria presence: without hematuria Qualified Code(s): N30.00 - Acute cystitis without hematuria Hyperglycemia due to type 2 diabetes mellitus Qualifiers: Diabetes mellitus half-way insulin use: with half-way use Qualified Code(s): E11.65 - Type 2 diabetes mellitus with hyperglycemia Vomiting Qualifiers: Vomiting type: unspecified Disposition: Admitted As Inpatient Condition: Good Time of Disposition: 16:45 Nausea/Vomiting/Diarrhea HPI - General Chief complaint: ED Nausea/Vomiting/Diarrhea Stated complaint: flu symptoms for 3 months/N/V Time Seen by Provider: 10/09/17 14:40 Source: patient, EMS Mode of arrival: EMS Limitations: no limitations Nursing Notes Reviewed: Yes Vital Signs Reviewed: Yes - History of Present Illness HPI Narrative: 66-year-old female states she has not felt well for 3 or 4 months. She states all over like she has had the flu. She states last 2 days she has had vomiting and diarrhea. She vomited 8-10 times. She has had about 6 episodes of diarrhea. No documented fever. No sore throat or earache. No cough. No abdominal pain. She does complain of some discomfort when she urinates and frequency. She last took her insulin on Saturday night. The squad stated that her Accu-Chek was 458. Pt Subjective Complaint: nausea, vomiting, diarrhea Onset (ago): day(s) Description of emesis: food contents (2) Number of episodes of emesis: 10 Description of Diarrhea: water Number of episodes: 6 Associated Abdominal Pain: No Severity scale (1-10): 0 Associated symptoms: Reports: dysuria - Related Data Home Medications Medication Instructions Recorded Confirmed Insulin Glargine [Lantus] 20 unit SQ QPM 11/21/16 10/09/17 Furosemide [Lasix] 20 mg PO DAILY 09/07/17 10/09/17 Insulin ASPART [Novolog Flexpen] 0 unit SQ TID 09/07/17 10/09/17 Simvastatin [Zocor] 5 mg PO BID 09/07/17 10/09/17 Metoprolol XL (24 HR) Succ [Toprol 25 mg PO BID 10/09/17 10/09/17 XL] Previous Rx's Medication Instructions Recorded Metoclopramide HCl 5 mg PO ACHS #120 tablet 06/03/17 Pregabalin [Lyrica] 50 mg PO BID #60 capsule 06/03/17 Magnesium Oxide [Mag-Ox] 400 mg PO BID #6 tablet 07/14/17 Isosorbide MONOnitrate (24 HR) 60 mg PO DAILY #30 tab.er.24h 09/10/17 [Imdur] Nitroglycerin 0.4 mg SL Q5MIN PRN #1 vial 09/10/17 Allergies Allergy/AdvReac Type Severity Reaction Status Date / Time Sulfa (Sulfonamide Allergy Hives Verified 05/31/17 17:29 Antibiotics) acetaminophen [From Tylenol] AdvReac Anaphylaxis Verified 05/31/17 17:29 gabapentin [From Neurontin] AdvReac Hallucinati Verified 05/31/17 17:29 ng hydrocodone AdvReac Hives Verified 05/31/17 17:29 ibuprofen AdvReac Hives Verified 05/31/17 17:29 All systems ED: reviewed and negative except as stated. Constitutional: Denies: fever, chills Eyes: Denies: eye discharge ENT ED: Denies: ear pain, throat pain Cardiovascular: Denies: chest pain Respiratory: Denies: cough, dyspnea Gastrointestinal: Reports: nausea, vomiting, diarrhea. Denies: abdominal pain Genitourinary: Reports: dysuria, frequency Musculoskeletal: Denies: back pain Integumentary: Denies: rash Neurological: Reports: weakness Past Medical History - Past Medical History Medical history: Reports: CHF, coronary artery disease, diabetes, GERD, hyperlipidemia, hypertension, renal disease Surgical history: Reports: angioplasty/stent, , hysterectomy Psychiatric history: Reports: no psych history [employer] history: Reports: other - Social History Smoking Status: Former smoker Smokeless Tobacco Status: No Alcohol use: Reports: none Drug use: Reports: none Physical Exam - General Limitations: no limitations General appearance: alert, in no apparent distress - Head Head exam: atraumatic, normocephalic - Eye Eye exam: Present: other (Drooping left upper eyelid. Left cornea is scarred/ opacified. Right pupil is 4 mm and reactive.). Absent: scleral icterus - ENT ENT exam: normal oropharynx, mucous membranes moist, TM's normal bilaterally - Neck Neck exam: Present: normal inspection, full ROM, trachea midline. Absent: lymphadenopathy - Chest Chest inspection: Present: normal inspection, symmetric chest wall rise - Respiratory Respiratory exam: Present: normal lung sounds bilaterally. Absent: respiratory distress, wheezes - Cardiovascular Cardiovascular exam: Present: regular rate, normal rhythm, normal heart sounds - Abdominal Exam Abdominal exam: Present: soft, Non-Tender, normal bowel sounds. Absent: organomegaly, mass - Extremities Exam Extremities exam: Present: normal inspection, full ROM, normal capillary refill. Absent: calf tenderness - Back Exam Back exam: Absent: CVA tenderness (R), CVA tenderness (L) - Neurological Exam Neurological exam: Present: alert, oriented X3. Absent: motor sensory deficit - Psychiatric Psychiatric exam: Present: normal affect, normal mood - Skin Skin exam: Present: warm, dry, intact, normal color. Absent: cyanosis, diaphoresis Course - Reevaluation(s) Reevaluation #1: Discussed with Dr. Oliveros. He has accepted for observation admission. Time: 16:44 Vital Signs Temperature 99.4 F 10/09/17 14:32 Pulse Rate 72 10/09/17 14:32 Respiratory Rate 18 10/09/17 14:32 Blood Pressure 198/77 10/09/17 14:32 O2 Sat by Pulse Oximetry 99 10/09/17 14:32 Temperature 98.4 F 10/09/17 18:37 Pulse Rate 74 10/09/17 18:37 Respiratory Rate 18 10/09/17 18:37 Blood Pressure 194/83 10/09/17 18:37 O2 Sat by Pulse Oximetry 98 10/09/17 18:37 Oxygen Delivery Oxygen Delivery Room Air Nausea/Vomiting/Diarrhea - [facility] Narrative Medical decision making narrative: Differential includes but is not limited to viral gastroenteritis, food poisoning, urinary tract infection, DKA, dehydration, uncontrolled diabetes mellitus, influenza. The patient has a urinary tract infection with elevated blood sugars with vomiting. She was hydrated, given IV insulin, given IV Rocephin. She will require observation admission for control of her blood sugars and IV antibiotic therapy until she can tolerate by mouth. I have discussed the case with Dr. Oliveros. He has accepted the patient for observation admission. - Lab Data Lab results reviewed: Yes I reviewed the patient's lab results. Result diagrams: 10/09/17 14:50 10/09/17 14:50 Lab Results 10/09/17 10/09/17 10/09/17 Range/Units 14:42 14:50 14:50 WBC 5.4 (4.3-11.1) K/mcL RBC 3.37 L (3.82-4.97) M/mcL Hgb 10.4 L (11.5-15.4) g/dL Hct 30.6 L (35.3-44.9) % MCV 90.8 (83.0-100.0) fL MCH 30.9 (28.0-33.3) pg MCHC 34.0 (31.6-35.5) g/dL RDW 13.0 (11.5-14.5) % Plt Count 165 (140-400) K/mcL MPV 11.8 (9.4-12.4) fL Immature Gran % 0.4 (0-4) % Seg Neutrophils % 70.8 % Lymphocytes % 19.9 % Monocytes % 6.3 % Eosinophils % 2.2 % Basophils % 0.4 % Neutrophils # 3.8 (1.6-8.9) K/mcL Lymphocytes # 1.1 (0.6-4.6) K/mcL Monocytes # 0.3 (0.0-1.3) K/mcL Eosinophils # 0.1 (0.0-0.6) K/mcL Basophils # 0.0 (0.0-0.2) K/mcL VBG pH (7.32-7.42) pH Units VBG pCO2 (41-51) mmHg VBG pO2 (25-50) mmHg VBG HCO3 (21-27) mEq/L VBG Total CO2 mEq/L VBG O2 Saturation % VBG Base Excess mEq/L VBG Lactic Acid (0.5-2.2) mmol/L Venous Sodium (135-145) mEq/L Sodium 138 (136-145) mEq/L Venous Potassium (3.5-5.5) mEq/L Potassium 4.1 (3.5-4.5) mEq/L Venous Chloride (98-107) mEq/L Chloride 104 (98-109) mEq/L Carbon Dioxide 26 (19-29) mEq/L BUN 22 H (7-20) mg/dL Creatinine 1.53 H (0.57-1.11) mg/dL Est GFR ( Amer) 41 L (> 60) Est GFR (Non-Af Amer) 34 L (> 60) BUN/Creatinine Ratio 14 (6-26) Glucose 387 H (70-99) mg/dL Whole Bld Glucose (65-95) mg/dl POC Glucose 368 H (58-89) Calculated Osmolality 305 H (280-300) Lactic Acid (0.5-2.2) mmol/L Calcium 9.2 (8.6-10.8) mg/dL Total Bilirubin 0.3 (0.2-1.2) mg/dL AST 10 (5-34) Units/L ALT 7 (0-55) Units/L Alkaline Phosphatase 120 (38-126) Units/L Serum Total Protein 7.1 (6.0-8.3) g/dL Albumin 3.0 L (3.5-5.0) g/dL Globulin 4.1 H (2.4-3.5) g/dL Albumin/Globulin Ratio 0.7 L (1.1-2.2) Lipase 56 (8-78) Units/L Beta-Hydroxybutyric Acd 0.30 H (0.02-0.27) mmol/L Urine Color (Yellow) Urine Clarity (Clear) Urine pH (5.0-8.0) pH Units Ur Specific [place] (1.010-1.025) Urine Protein (Neg-Trace) mg/dL Urine Glucose (UA) (Normal) mg/dL Urine Ketones (Negative) mg/dL Urine Blood (Negative) Urine Nitrite (Negative) Urine Bilirubin (Negative) Urine Urobilinogen (Normal) mg/dL Ur Leukocyte Esterase (Negative) Urine Microscopic RBC (0-3) per hpf Urine Microscopic WBC (0-3) per hpf Ur Squamous Epith Cells (None-Few) per lpf Urine Yeast (None Seen) per hpf Ur Culture Indicated? (NO) 10/09/17 10/09/17 10/09/17 Range/Units 14:50 15:07 15:35 WBC (4.3-11.1) K/mcL RBC (3.82-4.97) M/mcL Hgb (11.5-15.4) g/dL Hct (35.3-44.9) % MCV (83.0-100.0) fL MCH (28.0-33.3) pg MCHC (31.6-35.5) g/dL RDW (11.5-14.5) % Plt Count (140-400) K/mcL MPV (9.4-12.4) fL Immature Gran % (0-4) % Seg Neutrophils % % Lymphocytes % % Monocytes % % Eosinophils % % Basophils % % Neutrophils # (1.6-8.9) K/mcL Lymphocytes # (0.6-4.6) K/mcL Monocytes # (0.0-1.3) K/mcL Eosinophils # (0.0-0.6) K/mcL Basophils # (0.0-0.2) K/mcL VBG pH 7.35 (7.32-7.42) pH Units VBG pCO2 47 (41-51) mmHg VBG pO2 111 H (25-50) mmHg VBG HCO3 26 (21-27) mEq/L VBG Total CO2 28 mEq/L VBG O2 Saturation 98 % VBG Base Excess 0 mEq/L VBG Lactic Acid 0.6 (0.5-2.2) mmol/L Venous Sodium 140 (135-145) mEq/L Sodium (136-145) mEq/L Venous Potassium 4.2 (3.5-5.5) mEq/L Potassium (3.5-4.5) mEq/L Venous Chloride 105 (98-107) mEq/L Chloride (98-109) mEq/L Carbon Dioxide (19-29) mEq/L BUN (7-20) mg/dL Creatinine (0.57-1.11) mg/dL Est GFR ( Amer) (> 60) Est GFR (Non-Af Amer) (> 60) BUN/Creatinine Ratio (6-26) Glucose (70-99) mg/dL Whole Bld Glucose 380 H (65-95) mg/dl POC Glucose (58-89) Calculated Osmolality (280-300) Lactic Acid 0.6 (0.5-2.2) mmol/L Calcium (8.6-10.8) mg/dL Total Bilirubin (0.2-1.2) mg/dL AST (5-34) Units/L ALT (0-55) Units/L Alkaline Phosphatase (38-126) Units/L Serum Total Protein (6.0-8.3) g/dL Albumin (3.5-5.0) g/dL Globulin (2.4-3.5) g/dL Albumin/Globulin Ratio (1.1-2.2) Lipase (8-78) Units/L Beta-Hydroxybutyric Acd (0.02-0.27) mmol/L Urine Color Light Yellow (Yellow) Urine Clarity Slightly Cloudy A (Clear) Urine pH 5.5 (5.0-8.0) pH Units Ur Specific [place] 1.015 (1.010-1.025) Urine Protein >=300 H (Neg-Trace) mg/dL Urine Glucose (UA) >=1000 H (Normal) mg/dL Urine Ketones Negative (Negative) mg/dL Urine Blood Moderate H (Negative) Urine Nitrite Negative (Negative) Urine Bilirubin Negative (Negative) Urine Urobilinogen Normal (Normal) mg/dL Ur Leukocyte Esterase Small H (Negative) Urine Microscopic RBC 5-15 H (0-3) per hpf Urine Microscopic WBC TNTC H (0-3) per hpf Ur Squamous Epith Cells Few (None-Few) per lpf Urine Yeast Many H (None Seen) per hpf Ur Culture Indicated? YES A (NO) 10/09/17 Range/Units 16:52 WBC (4.3-11.1) K/mcL RBC (3.82-4.97) M/mcL Hgb (11.5-15.4) g/dL Hct (35.3-44.9) % MCV (83.0-100.0) fL MCH (28.0-33.3) pg MCHC (31.6-35.5) g/dL RDW (11.5-14.5) % Plt Count (140-400) K/mcL MPV (9.4-12.4) fL Immature Gran % (0-4) % Seg Neutrophils % % Lymphocytes % % Monocytes % % Eosinophils % % Basophils % % Neutrophils # (1.6-8.9) K/mcL Lymphocytes # (0.6-4.6) K/mcL Monocytes # (0.0-1.3) K/mcL Eosinophils # (0.0-0.6) K/mcL Basophils # (0.0-0.2) K/mcL VBG pH (7.32-7.42) pH Units VBG pCO2 (41-51) mmHg VBG pO2 (25-50) mmHg VBG HCO3 (21-27) mEq/L VBG Total CO2 mEq/L VBG O2 Saturation % VBG Base Excess mEq/L VBG Lactic Acid (0.5-2.2) mmol/L Venous Sodium (135-145) mEq/L Sodium (136-145) mEq/L Venous Potassium (3.5-5.5) mEq/L Potassium (3.5-4.5) mEq/L Venous Chloride (98-107) mEq/L Chloride (98-109) mEq/L Carbon Dioxide (19-29) mEq/L BUN (7-20) mg/dL Creatinine (0.57-1.11) mg/dL Est GFR ( Amer) (> 60) Est GFR (Non-Af Amer) (> 60) BUN/Creatinine Ratio (6-26) Glucose (70-99) mg/dL Whole Bld Glucose (65-95) mg/dl POC Glucose 175 H (58-89) Calculated Osmolality (280-300) Lactic Acid (0.5-2.2) mmol/L Calcium (8.6-10.8) mg/dL Total Bilirubin (0.2-1.2) mg/dL AST (5-34) Units/L ALT (0-55) Units/L Alkaline Phosphatase (38-126) Units/L Serum Total Protein (6.0-8.3) g/dL Albumin (3.5-5.0) g/dL Globulin (2.4-3.5) g/dL Albumin/Globulin Ratio (1.1-2.2) Lipase (8-78) Units/L Beta-Hydroxybutyric Acd (0.02-0.27) mmol/L Urine Color (Yellow) Urine Clarity (Clear) Urine pH (5.0-8.0) pH Units Ur Specific [place] (1.010-1.025) Urine Protein (Neg-Trace) mg/dL Urine Glucose (UA) (Normal) mg/dL Urine Ketones (Negative) mg/dL Urine Blood (Negative) Urine Nitrite (Negative) Urine Bilirubin (Negative) Urine Urobilinogen (Normal) mg/dL Ur Leukocyte Esterase (Negative) Urine Microscopic RBC (0-3) per hpf Urine Microscopic WBC (0-3) per hpf Ur Squamous Epith Cells (None-Few) per lpf Urine Yeast (None Seen) per hpf Ur Culture Indicated? (NO) - Radiology Data Radiology results reviewed: Yes I reviewed the patient's radiology results. Impressions Chest X-Ray 10/09/17 14:42 IMPRESSION: No acute process. D/ / Ibrahima Reyes MD / Ibrahima Reyes MD Interpreting Provider: Ibrahima Reyes MD - EKG Data EKG attestation: Yes I reviewed and interpreted this EKG. EKG results narrative: Sinus rhythm, rate of 72, no acute ST-T wave changes. Rhythm strip shows sinus rhythm with rate of 72, DE 186 ms, QRS of 86 ms with no other ectopy as interpreted by me. This is compared to a tracing dated 09/07/17, no significant change.
[2017-10-09 14:57] LABS: Basophils % 0.4 %; Eosinophils # 0.1 K/mcL (0.0-0.6); Eosinophils % 2.2 %; Hematocrit 30.6 % (35.3-44.9); Hemoglobin 10.4 g/dL (11.5-15.4); Immature Granulocytes % 0.4 % (0-4); Lymphocytes # 1.1 K/mcL (0.6-4.6); Lymphocytes % 19.9 %; Mean Corpuscular Hemoglobin 30.9 pg (28.0-33.3); Mean Corpuscular Volume 90.8 fL (83.0-100.0); Mean Platelet Volume 11.8 fL (9.4-12.4); Monocytes # 0.3 K/mcL (0.0-1.3); Monocytes % 6.3 %; Neutrophils # 3.8 K/mcL (1.6-8.9); Platelet Count 165 K/mcL (140-400); Red Blood Count 3.37 M/mcL (3.82-4.97); Segmented Neutrophils % 70.8 %
[2017-10-09] MEDS: 0.9 % Sodium Chloride 1,000 ML IVC SCH ×8 (15:06→23:00)
[2017-10-09 15:10] LABS: VBG Base Excess 0 mEq/L; VBG Chloride 105 mEq/L (98-107); VBG Glucose 380 mg/dl (65-95); VBG HCO3 26 mEq/L (21-27); VBG Oxygen Saturation 98 %; VBG PCO2 47 mmHg (41-51); VBG PH 7.35 pH Units (7.32-7.42); VBG PO2 111 mmHg (25-50); VBG Total CO2 28 mEq/L
[2017-10-09] MEDS ORDERED: Insulin Human Regular 10 UNIT in 0.9 % Sodium Chloride 10 ML IV ONE (15:14)
[2017-10-09 15:15] LABS: Albumin/Globulin Ratio 0.7 (1.1-2.2); Bilirubin,Total 0.3 mg/dL (0.2-1.2); Calcium 9.2 mg/dL (8.6-10.8); Globulin 4.1 g/dL (2.4-3.5); Potassium 4.1 mEq/L (3.5-4.5); Total Protein 7.1 g/dL (6.0-8.3)
[2017-10-09 15:25] LABS: Beta-Hydroxybutyric Acid 0.3 mmol/L (0.02-0.27)
[2017-10-09 15:40] LABS: Bilirubin,Urine Negative (Negative); Blood,Urine Moderate (Negative); Clarity,Urine Slightly Cloudy (Clear); Glucose,Urine (UA) >=1000 mg/dL (Normal); Ketones,Urine Negative (Negative); Leukocyte Esterase,Urine Small (Negative); Nitrite,Urine Negative (Negative); PH,Urine 5.5 pH Units (5.0-8.0); Protein,Urine >=300 mg/dL (Neg-Trace); Specific Gravity,Urine 1.015 (1.010-1.025); Urobilinogen,Urine Normal (Normal)
[2017-10-09 15:41] LABS: Color,Urine Light Yellow (Yellow)
[2017-10-09 15:50] LABS: Squamous Epithelial Cell,Urine Few per lpf (None-Few); WBC,Urine TNTC per hpf (0-3); Yeast,Urine Many per hpf (None Seen)
[2017-10-09] MEDS ORDERED: D5% in Water 1,000 ML IVC PRN (19:15)
[2017-10-09] MEDS ORDERED: Nitroglycerin 0.4 MG TAB.SUBL SL PRN (19:15)
[2017-10-09] MEDS ORDERED: *HR* Dextrose 50 % in Water (Syg) 50 ML SYRINGE IVP PRN (19:15)
[2017-10-09] MEDS ORDERED: Naloxone 0.4 MG/ML INJ IVP PRN (19:15)
[2017-10-09] MEDS ORDERED: Dextrose Gel 15 GM PO PRN ×2 (19:15)
[2017-10-09] MEDS ORDERED: Ondansetron 4 MG/2 ML VIAL IVP PRN (19:15)
[2017-10-09 21:23] LABS: Hemoglobin A1C 8.5 %
[2017-10-09] MEDS: Pregabalin 50 MG CAPSULE PO SCH (22:46)
[2017-10-09] MEDS: Magnesium Oxide 400 MG TABLET PO SCH (22:46)
[2017-10-09] MEDS: Metoprolol XL (24 HR) Succ 25 MG TAB.ER.24H PO SCH (22:46)
[2017-10-09] MEDS: Insulin LISPRO 300 UNITS/3 ML VIAL SQ SCH (22:47)
[2017-10-10] MEDS: 0.9 % Sodium Chloride 1,000 ML IVC SCH ×7 (00:06→05:13)
[2017-10-10] MEDS: Insulin LISPRO 300 UNITS/3 ML VIAL SQ SCH ×4 (01:33→17:04)
[2017-10-10] MEDS: Magnesium Oxide 400 MG TABLET PO SCH ×2 (08:37→22:22)
[2017-10-10] MEDS: Furosemide 20 MG TABLET PO SCH (08:37)
[2017-10-10] MEDS: Isosorbide MONOnitrate (24 HR) 60 MG TAB.ER.24H PO SCH (08:37)
[2017-10-10] MEDS: Pregabalin 50 MG CAPSULE PO SCH ×2 (08:37→22:22)
[2017-10-10] MEDS: Metoprolol XL (24 HR) Succ 25 MG TAB.ER.24H PO SCH ×2 (08:38→22:21)
--- NOTE | 2017-10-10 11:50 | Internal Med History&Physical ---
Date of Encounter: 10/10/17 Time of Encounter: 11:15 Assessment and Plan (1) Acute gastroenteritis Current visit: Yes Status: Acute We will continue with IV fluids and prn antiemetics. Anticipate discharge home tomorrow if stable. (2) Anemia Current visit: No Status: Chronic Hemoglobin improved to 10.4 after iron infusion last admission. Continue to monitor labs as needed. Qualifiers: Anemia type: unspecified type Qualified Code(s): D64.9 - Anemia, unspecified (3) Hypertension Current visit: Yes Status: Chronic Continue Toprol and Imdur. Qualifiers: Hypertension type: essential hypertension Qualified Code(s): I10 - Essential (primary) hypertension (4) UTI (urinary tract infection) Current visit: Yes Status: Acute She has been started on Rocephin through emergency room Qualifiers: Urinary tract infection type: acute cystitis Hematuria presence: without hematuria Qualified Code(s): N30.00 - Acute cystitis without hematuria Internal Medicine - H&P: HPI Chief complaint: Vomiting and diarrhea Admitted From: Emergency Dept Plans for Post Hospital Care: Home History of present illness: Ms. Mohamud is a 66 year old female who came to emergency room stating she had 2 day history of multiple episodes of vomiting and diarrhea. She denies visible blood in vomitus or diarrhea. She denies significant pain. She was evaluated and felt to have UTI and hyperglycemia. She was admitted to [facility] floor for ongoing care needs. She states her diarrhea seems to significantly lessened now and she has not vomited in several hours. She still feels nauseated. Her GI history is pertinent for GERD but no disorder of her liver gallbladder or exocrine pancreas. Past Med Surg Social Fam HX - Past Medical History Medical history: CHF, coronary artery disease, diabetes, GERD, hyperlipidemia, hypertension, renal disease Psychiatric history: no psych history - Past Surgical History Surgical History: angioplasty/stent, , hysterectomy - Social History Smoking Status: Former smoker Smokeless Tobacco Status: No Alcohol use: none Drug use: none - Family History Mother Family Member Ethnicity: Non- Living Status: Hx Family Cardiac Disorders: Yes Hx Family Respiratory Disorders: No Hx Family Cancer: No Hx Family GI Disorders: No Hx Family Endocrine Disorder: Yes (diabetes) Hx Family Neuromuscular Disorders: No Hx Family Neurologic Disorders: No Hx Family HEENT Disorders: No Hx Family Autoimmune Disorders: No Father Family Member Ethnicity: Non- Living Status: Hx Family Cardiac Disorders: Yes (chf) Hx Family Respiratory Disorders: No Hx Family Cancer: No Hx Family GI Disorders: No Hx Family Endocrine Disorder: No Hx Family Neuromuscular Disorders: No Hx Family Neurologic Disorders: No Hx Family HEENT Disorders: No Hx Family Autoimmune Disorders: No Internal Medicine - H&P: Meds Insulin Glargine [Lantus] 20 unit SQ QPM 11/21/16 [History] Metoclopramide HCl 5 mg PO ACHS #120 tablet 06/03/17 [Rx] Pregabalin [Lyrica] 50 mg PO BID #60 capsule 06/03/17 [Rx] Magnesium Oxide [Mag-Ox] 400 mg PO BID #6 tablet 07/14/17 [Rx] Furosemide [Lasix] 20 mg PO DAILY 09/07/17 [History] Insulin ASPART [Novolog Flexpen] 0 unit SQ TID 09/07/17 [History] Simvastatin [Zocor] 5 mg PO BID 09/07/17 [History] Isosorbide MONOnitrate (24 HR) [Imdur] 60 mg PO DAILY #30 tab.er.24h 09/10/17 [ Rx] Nitroglycerin 0.4 mg SL Q5MIN PRN #1 vial 09/10/17 [Rx] Metoprolol XL (24 HR) Succ [Toprol XL] 25 mg PO BID 10/09/17 [History] 3 Allergy/AdvReac Type Severity Reaction Status Date / Time Sulfa (Sulfonamide Allergy Hives Verified 05/31/17 17:29 Antibiotics) acetaminophen [From Tylenol] AdvReac Anaphylaxis Verified 05/31/17 17:29 gabapentin [From Neurontin] AdvReac Hallucinati Verified 05/31/17 17:29 ng hydrocodone AdvReac Hives Verified 05/31/17 17:29 ibuprofen AdvReac Hives Verified 05/31/17 17:29 All Systems PM: A 10-system review of systems was performed and is negative for pertinent findings except as documented above in the HPI. Review of systems: Review of systems from her August 2017 [facility] hospitalization were reviewed and revised as below. General: Her weight has decreased from 77.247 kg on 10/27/2015 to 65.771 kg on admission now. Cardiovascular: She has history of hypertension but denies HI heart failure DVT or pulmonary embolus. She has known ASHD with stents placed in 2004 and 2005. Her last heart catheter was 2005. She had a Regadenoson EST 07/06/2010 which showed no perfusion or EKG evidence of ischemia. Respiratory: She smoked for approximately 4 years in her early 20s but has no known chronic lung disease. She does not wear home oxygen and does not recall being tested for sleep apnea GI: As per history of present illness. : She has had numerous UTIs in the past. 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 She denies hematuria dysuria or kidney stones. Neurologic: She denies large distribution strokes or seizures. 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 She has hyperlipidemia but no known thyroid disease Hematology/oncology: She denies blood disorders or cancers. She had anemia and was given IV iron and dextran during her August 2017 [facility] hospitalization. Psychiatric: She denies anxiety depression or other mental health issues Musk skeletal: She denies arthritis or osteoporosis or gout. She did have elevated uric acid level at 8.0 on 02/13/2016 but it had improved to 6.3 on . She has had right great toe amputation in the distant past - Constitutional Vitals: Temp Pulse Resp BP Pulse Ox 99.3 F 109 17 191/75 94 10/10/17 07:44 10/10/17 07:44 10/10/17 07:44 10/10/17 07:44 10/10/17 07:44 Exam: Gen.: She is a well-developed well-nourished female who appears in no severe distress at present time HEENT: Head is atraumatic and normocephalic. Eyes: EOMI (right eye). She is blind in her left eye. Mouth: Mucosa is moist. Neck: Supple and nontender. There is no thyromegaly or adenopathy noted. Heart: Regular without murmurs gallops or ectopics Lungs: No wheezes or crackles are heard. Abdomen: Soft and nontender. No masses or guarding are noted. Bowel sounds are diminished Extremities: There is no cyanosis edema or clubbing noted. Dorsalis pedis and posterior tibial pulses are trace palpable bilaterally. She has had amputation of the right great toe with well-healed scar. 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 Neurologic: Mental status: She is talkative and a good historian. Cranial nerves: Smile is symmetric. Forehead wrinkles bilaterally. Tongue protrudes midline. EOMI. Motor: There is no pronator drift. Cerebellar: Finger to nose is intact bilaterally. Skin: Warm and dry Internal Med - H&P Results - Labs CBC & Chem 7: 10/09/17 14:50 10/09/17 14:50
[2017-10-10] MEDS: Insulin DETEMIR 100 UNIT/ML X5UNITS SQ SCH ×2 (17:03→22:23)
--- NOTE | 2017-10-10 19:57 | Electrocardiograph Report ---
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
[2017-10-10] MEDS ORDERED: Insulin LISPRO 300 UNITS/3 ML VIAL SQ SCH (21:00)
[2017-10-10] MEDS: Lactobacillus 1 EACH CAP.SPRINK PO SCH (22:22)
[2017-10-11 06:06] LABS: Calcium 8.2 mg/dL (8.6-10.8); Magnesium 2.2 mg/dL (1.6-2.6); Potassium 4.6 mEq/L (3.5-4.5)
[2017-10-11 06:56] VITALS: BP 151/65
[2017-10-11] MEDS: Furosemide 20 MG TABLET PO SCH (07:17)
[2017-10-11] MEDS: Lactobacillus 1 EACH CAP.SPRINK PO SCH (07:17)
[2017-10-11] MEDS: Insulin LISPRO 300 UNITS/3 ML VIAL SQ SCH (07:17)
[2017-10-11] MEDS: Pregabalin 50 MG CAPSULE PO SCH (07:18)
[2017-10-11] MEDS: Magnesium Oxide 400 MG TABLET PO SCH (07:18)
[2017-10-11] MEDS: Metoprolol XL (24 HR) Succ 25 MG TAB.ER.24H PO SCH (07:18)
[2017-10-11] MEDS: Isosorbide MONOnitrate (24 HR) 60 MG TAB.ER.24H PO SCH (07:18)
--- NOTE | 2017-10-11 10:27 | Discharge Summary ---
Date of Encounter: 10/11/17 Time of Encounter: 10:15 - Discharge Diagnosis (1) Acute gastroenteritis Priority: Primary Status: Acute (2) Anemia Priority: Secondary Status: Chronic Qualifiers: Anemia type: unspecified type Qualified Code(s): D64.9 - Anemia, unspecified (3) Hypertension Priority: Secondary Status: Chronic Qualifiers: Hypertension type: essential hypertension Qualified Code(s): I10 - Essential (primary) hypertension (4) UTI (urinary tract infection) Priority: Secondary Status: Resolved Qualifiers: Urinary tract infection type: acute cystitis Hematuria presence: without hematuria Qualified Code(s): N30.00 - Acute cystitis without hematuria - Discharge Medications Prescriptions: Metoprolol Succinate 100 mg PO DAILY #30 tab.er.24h Home Medications: Insulin Glargine [Lantus] 20 unit SQ QPM 11/21/16 [History] Metoclopramide HCl 5 mg PO ACHS #120 tablet 06/03/17 [Rx] Pregabalin [Lyrica] 50 mg PO BID #60 capsule 06/03/17 [Rx] Magnesium Oxide [Mag-Ox] 400 mg PO BID #6 tablet 07/14/17 [Rx] Furosemide [Lasix] 20 mg PO DAILY 09/07/17 [History] Insulin ASPART [Novolog Flexpen] 0 unit SQ TID 09/07/17 [History] Simvastatin [Zocor] 5 mg PO BID 09/07/17 [History] Isosorbide MONOnitrate (24 HR) [Imdur] 60 mg PO DAILY #30 tab.er.24h 09/10/17 [ Rx] Nitroglycerin 0.4 mg SL Q5MIN PRN #1 vial 09/10/17 [Rx] Metoprolol Succinate 100 mg PO DAILY #30 tab.er.24h 10/11/17 [Rx] Allergies/Adverse Reactions: 3 Allergy/AdvReac Type Severity Reaction Status Date / Time Sulfa (Sulfonamide Allergy Hives Verified 05/31/17 17:29 Antibiotics) acetaminophen [From Tylenol] AdvReac Anaphylaxis Verified 05/31/17 17:29 gabapentin [From Neurontin] AdvReac Hallucinati Verified 05/31/17 17:29 ng hydrocodone AdvReac Hives Verified 05/31/17 17:29 ibuprofen AdvReac Hives Verified 05/31/17 17:29 Date of admission: 10/09/17 17:38 Primary care physician: Veronica Carr CNP Consults: 10/09/17 18:37 Consult to Nutrition [CONS] Routine Comment: Consulting Provider: NUTRITION Reason for Dietary Consult: MST Score - Patient Status Disposition: Home, Self-Care Condition: Good Functional capacity at discharge: independent ambulation Overall status at discharge: patient is progressing back to baseline - Discharge Instructions Follow Up With: Veronica Carr CNP [Primary Care Provider] - 1 week - Diet and Activity Activity: resume usual activities as tolerated Diet: advance to your usual diet Hospital course: Ms. Mohamud is a 66 year old female who came to emergency room stating she had 2 day history of multiple episodes of vomiting and diarrhea. She denies visible blood in vomitus or diarrhea. She denies significant pain. She was evaluated and felt to have UTI and hyperglycemia. She was admitted to [facility] floor for ongoing care needs. Initial orders were written by the emergency room physician. I saw her on October 10 and performed the history and physical. She was given IV fluids and prn antiemetics. There was no vomiting the last 24 hours of hospitalization. She was started on Rocephin empirically for UTI. Urine culture returned showing no growth. She will not continue with antibiotics at home. She reported some diarrhea still present on the day of discharge but I told her this might resolve once Rocephin is discontinued. Her blood pressure remained inadequately controlled. Her Toprol XL dose will be changed to 100 mg daily. There were no new problems and on October 11 I felt she was stable for discharge home. She will follow with her PCP within one week. - Time Spent with Patient Total time spent providing and/or coordinating discharge services: - Constitutional Vitals: Temp Pulse Resp BP Pulse Ox 98.5 F 64 18 151/65 96 10/11/17 06:53 10/11/17 06:53 10/11/17 06:53 10/11/17 06:53 10/11/17 06:53
== END 2017-10-11 14:07 | disposition home or self-care (01) ==
LOC: INPPIK 14:30 → EMEROOPIK 14:30 → INPPIK 18:19
PROVIDERS: ADMIT Emergency Medicine; ATTEND Internal Medicine

== ENCOUNTER 2017-10-22 16:26 | Observation (INO) ==
[2017-10-22] MEDS ORDERED: Ondansetron 4 MG/2 ML VIAL IVP ONE (16:40)
[2017-10-22] MEDS ORDERED: Pantoprazole 40 MG VIAL IVP ONE (16:40)
--- NOTE | 2017-10-22 16:40 | Emergency Department Note ---
Disposition Clinical Impression: Weakness, Gastroenteritis, CKD (chronic kidney disease) stage 3, GFR 30-59 ml/ min UTI (urinary tract infection) Qualifiers: Urinary tract infection type: acute cystitis Hematuria presence: without hematuria Qualified Code(s): N30.00 - Acute cystitis without hematuria Disposition: Admitted As Inpatient Condition: Good Referrals: Veronica Carr HEALTHCARE ADMINISTRATIVE ASSISTANT [Primary Care Provider] - Forms: ED Satisfaction Letter Nausea/Vomiting/Diarrhea HPI - General Chief complaint: ED Nausea/Vomiting/Diarrhea Stated complaint: N/V/D Time Seen by Provider: 10/22/17 16:35 Source: patient, EMS Mode of arrival: EMS Limitations: no limitations Nursing Notes Reviewed: Yes Vital Signs Reviewed: Yes - History of Present Illness HPI Narrative: The patient reports that she has been having nausea and vomiting for about 3-4 days. She states she is vomiting about every hour and is green or yellow. She did 6 days ago have was describes a bright red "pure blood" stool. The last 4 days she states she has had diarrhea about 4 times a day which has been black. She denies being on iron or Pepto-Bismol. She states she has had a low abdominal discomfort for 3-4 days which she "cannot describe". She denies any abdominal discomfort like this in the past. She denies history of prior black stool or GI bleed. She relates she has had some weakness and dizziness and on Saturday she had stood fallen against a washer without injury. She denies any other falls or injuries. She denies chest pain, palpitation, cough or shortness of breath. She denies any ill exposures to gastroenteritis syndrome but has been around upper respiratory infections. She denies concerns food borne illness or any recent antibiotics. She denies significant nonsteroidals, alcohol or other gastric irritants. She relates she does have chronic low back and leg pain which is chronic. She states that pain is typical for her in the scale 6 on a scale of 1-10. She relates she came in today because she stood to get to the bathroom and "vomited all over myself". Pt Subjective Complaint: nausea, vomiting, diarrhea, abdominal pain Description of emesis: bilious Description of Diarrhea: bloody, other ("Black") Associated Abdominal Pain: Yes If pain, Location of pain: LLQ, RLQ Radiation: diffuse Severity: moderate Quality: constant Consistency: constant Improves with: nothing Worsens with: nonthing Associated symptoms: Reports: loss of appetite, malaise, nausea/vomiting, weakness. Denies: myalgias, chest pain, cough, diaphoresis, fever/chills, headaches, rash, dysuria, shortness of breath, syncope - Related Data Home Medications Medication Instructions Recorded Confirmed Insulin Glargine [Lantus] 20 unit SQ QPM 11/21/16 10/09/17 Furosemide [Lasix] 20 mg PO DAILY 09/07/17 10/09/17 Insulin ASPART [Novolog Flexpen] 0 unit SQ TID 09/07/17 10/09/17 Simvastatin [Zocor] 5 mg PO BID 09/07/17 10/09/17 Previous Rx's Medication Instructions Recorded Metoclopramide HCl 5 mg PO ACHS #120 tablet 06/03/17 Pregabalin [Lyrica] 50 mg PO BID #60 capsule 06/03/17 Magnesium Oxide [Mag-Ox] 400 mg PO BID #6 tablet 07/14/17 Isosorbide MONOnitrate (24 HR) 60 mg PO DAILY #30 tab.er.24h 09/10/17 [Imdur] Nitroglycerin 0.4 mg SL Q5MIN PRN #1 vial 09/10/17 Metoprolol Succinate 100 mg PO DAILY #30 tab.er.24h 10/11/17 Allergies Allergy/AdvReac Type Severity Reaction Status Date / Time Sulfa (Sulfonamide Allergy Hives Verified 05/31/17 17:29 Antibiotics) acetaminophen [From Tylenol] AdvReac Anaphylaxis Verified 05/31/17 17:29 gabapentin [From Neurontin] AdvReac Hallucinati Verified 05/31/17 17:29 ng hydrocodone AdvReac Hives Verified 05/31/17 17:29 ibuprofen AdvReac Hives Verified 05/31/17 17:29 All systems ED: reviewed and negative except as stated. Past Medical History - Past Medical History Attestation: Yes The following information was validated with the patient. Source: patient, old records reviewed, nursing notes reviewed Medical history: Reports: CHF, coronary artery disease, diabetes, GERD, hyperlipidemia, hypertension, renal disease Surgical history: Reports: angioplasty/stent, , hysterectomy Psychiatric history: Reports: no psych history RECORD CUTTER history: Reports: other - Social History Smoking Status: Former smoker Smokeless Tobacco Status: No Alcohol use: Reports: none Drug use: Reports: none Physical Exam - General Limitations: no limitations General appearance: alert, in no apparent distress - Head Head exam: atraumatic, normocephalic, normal inspection - Eye Eye exam: Present: normal appearance, PERRL, EOMI. Absent: scleral icterus, conjunctival injection - ENT ENT exam: normal exam, normal oropharynx, mucous membranes moist - Neck Neck exam: Present: normal inspection, full ROM, trachea midline - Chest Chest inspection: Present: normal inspection, symmetric chest wall rise - Respiratory Respiratory exam: Present: normal lung sounds bilaterally. Absent: respiratory distress, wheezes, prolonged expiratory phase - Cardiovascular Cardiovascular exam: Present: regular rate, normal rhythm, normal heart sounds. Absent: tachycardia - Abdominal Exam Abdominal exam: Present: soft, Non-Tender, normal bowel sounds. Absent: tenderness, distention, guarding, rebound, rigidity - Extremities Exam Extremities exam: Present: normal inspection, full ROM, normal capillary refill. Absent: tenderness, pedal edema - Expanded Lower Extremity Exam Neurovascular/Tendon exam: Present: normal capillary refill. Absent: motor deficit, sensory deficit, tendon deficit Gait: not tested/not observed - Back Exam Back exam: Present: normal inspection, full ROM. Absent: tenderness, CVA tenderness (R), CVA tenderness (L) - Neurological Exam Neurological exam: Present: alert - Psychiatric Psychiatric exam: Present: normal affect, normal mood - Skin Skin exam: Present: warm, dry, intact, normal color. Absent: rash, diaphoresis , pallor Course Course Narrative: Care is discussed with Dr. Oliveros. He is agreeable with observation with continued hydration and administration of antibiotics for UTI. She is currently resting comfortably with a heart rate of 71, saturation 98% on room air and a blood pressure of 198/74. She is coordinated to the floor in stable condition. Vital Signs Temperature 98.6 F 10/22/17 16:34 Pulse Rate 79 10/22/17 16:34 Respiratory Rate 21 10/22/17 16:34 Blood Pressure 169/80 10/22/17 16:34 O2 Sat by Pulse Oximetry 98 10/22/17 16:34 Temperature 98.6 F 10/22/17 16:34 Pulse Rate 70 10/22/17 16:43 Respiratory Rate 14 10/22/17 16:43 Blood Pressure 169/80 10/22/17 16:43 O2 Sat by Pulse Oximetry 100 10/22/17 16:43 Oxygen Delivery Oxygen Delivery Room Air Nausea/Vomiting/Diarrhea - Differential Diagnosis Likely: food poisoning, gastroenteritis (GI bleed), dehydration - Lab Data Lab results reviewed: Yes I reviewed the patient's lab results. Lab results narrative: The patient's renal insufficiency is chronic. The patient's hemoglobin is stable at this time. Result diagrams: 10/22/17 17:29 10/22/17 17:29 Lab Results 10/22/17 10/22/17 10/22/17 Range/Units 17:29 17:29 17:29 WBC 5.3 (4.3-11.1) K/mcL RBC 3.36 L (3.82-4.97) M/mcL Hgb 10.4 L (11.5-15.4) g/dL Hct 29.9 L (35.3-44.9) % MCV 89.0 (83.0-100.0) fL MCH 31.0 (28.0-33.3) pg MCHC 34.8 (31.6-35.5) g/dL RDW 12.7 (11.5-14.5) % Plt Count 169 (140-400) K/mcL MPV 11.5 (9.4-12.4) fL Immature Gran % 0.2 (0-4) % Seg Neutrophils % 63.0 % Lymphocytes % 28.5 % Monocytes % 5.1 % Eosinophils % 2.8 % Basophils % 0.4 % Neutrophils # 3.4 (1.6-8.9) K/mcL Lymphocytes # 1.5 (0.6-4.6) K/mcL Monocytes # 0.3 (0.0-1.3) K/mcL Eosinophils # 0.2 (0.0-0.6) K/mcL Basophils # 0.0 (0.0-0.2) K/mcL PT 10.5 (9.4-12.1) Seconds INR 1.0 APTT 30.8 (26.0-36.0) Seconds Sodium 137 (136-145) mEq/L Potassium 3.8 (3.5-4.5) mEq/L Chloride 103 (98-109) mEq/L Carbon Dioxide 27 (19-29) mEq/L BUN 19 (7-20) mg/dL Creatinine 1.56 H (0.57-1.11) mg/dL Est GFR ( Amer) 40 L (> 60) Est GFR (Non-Af Amer) 33 L (> 60) BUN/Creatinine Ratio 12 (6-26) Glucose 242 H (70-99) mg/dL Calculated Osmolality 294 (280-300) Calcium 8.8 (8.6-10.8) mg/dL Urine Color (Yellow) Urine Clarity (Clear) Urine pH (5.0-8.0) pH Units Ur Specific Benedict (1.010-1.025) Urine Protein (Neg-Trace) mg/dL Urine Glucose (UA) (Normal) mg/dL Urine Ketones (Negative) mg/dL Urine Blood (Negative) Urine Nitrite (Negative) Urine Bilirubin (Negative) Urine Urobilinogen (Normal) mg/dL Ur Leukocyte Esterase (Negative) Urine Microscopic RBC (0-3) per hpf Urine Microscopic WBC (0-3) per hpf Ur Squamous Epith Cells (None-Few) per lpf Urine Bacteria (None-Few) per hpf Urine Yeast (None Seen) per hpf Ur Culture Indicated? (NO) 10/22/17 Range/Units 17:55 WBC (4.3-11.1) K/mcL RBC (3.82-4.97) M/mcL Hgb (11.5-15.4) g/dL Hct (35.3-44.9) % MCV (83.0-100.0) fL MCH (28.0-33.3) pg MCHC (31.6-35.5) g/dL RDW (11.5-14.5) % Plt Count (140-400) K/mcL MPV (9.4-12.4) fL Immature Gran % (0-4) % Seg Neutrophils % % Lymphocytes % % Monocytes % % Eosinophils % % Basophils % % Neutrophils # (1.6-8.9) K/mcL Lymphocytes # (0.6-4.6) K/mcL Monocytes # (0.0-1.3) K/mcL Eosinophils # (0.0-0.6) K/mcL Basophils # (0.0-0.2) K/mcL PT (9.4-12.1) Seconds INR APTT (26.0-36.0) Seconds Sodium (136-145) mEq/L Potassium (3.5-4.5) mEq/L Chloride (98-109) mEq/L Carbon Dioxide (19-29) mEq/L BUN (7-20) mg/dL Creatinine (0.57-1.11) mg/dL Est GFR ( Amer) (> 60) Est GFR (Non-Af Amer) (> 60) BUN/Creatinine Ratio (6-26) Glucose (70-99) mg/dL Calculated Osmolality (280-300) Calcium (8.6-10.8) mg/dL Urine Color Yellow (Yellow) Urine Clarity Cloudy A (Clear) Urine pH 6.0 (5.0-8.0) pH Units Ur Specific Benedict 1.020 (1.010-1.025) Urine Protein >=300 H (Neg-Trace) mg/dL Urine Glucose (UA) 500 H (Normal) mg/dL Urine Ketones Negative (Negative) mg/dL Urine Blood Moderate H (Negative) Urine Nitrite Negative (Negative) Urine Bilirubin Negative (Negative) Urine Urobilinogen Normal (Normal) mg/dL Ur Leukocyte Esterase Small H (Negative) Urine Microscopic RBC 3-5 H (0-3) per hpf Urine Microscopic WBC 50-100 H (0-3) per hpf Ur Squamous Epith Cells Few (None-Few) per lpf Urine Bacteria Few (None-Few) per hpf Urine Yeast Many H (None Seen) per hpf Ur Culture Indicated? YES A (NO) - Radiology Data Radiology results reviewed: Yes I reviewed the patient's radiology results. Impressions Abdomen/Pelvis CT 10/22/17 16:41 IMPRESSION: 1. No acute infective inflammatory process. 2. No urinary tract calculi. 3. Redemonstration of circumferential bladder wall thickening not as pronounced as prior. This probably due to underdistention but cystitis could have similar appearance. D/ / Cory Escobar MD / Cory Escobar MD Interpreting Provider: Cory Escobar MD - EKG Data EKG attestation: Yes I reviewed and interpreted this EKG. EKG shows normal: sinus rhythm, axis, intervals, QRS complexes, ST-T waves Rate: normal (67) Lulu/QRS: RBBB (Incomplete) Interpretation: no acute changes
[2017-10-22] MEDS ORDERED: 0.9 % Sodium Chloride 500 ML IVC ONE (16:42)
[2017-10-22] MEDS ORDERED: 0.9 % Sodium Chloride 1,000 ML IVC SCH (16:45)
[2017-10-22 17:37] LABS: Basophils % 0.4 %; Eosinophils # 0.2 K/mcL (0.0-0.6); Eosinophils % 2.8 %; Hematocrit 29.9 % (35.3-44.9); Hemoglobin 10.4 g/dL (11.5-15.4); Immature Granulocytes % 0.2 % (0-4); Lymphocytes # 1.5 K/mcL (0.6-4.6); Lymphocytes % 28.5 %; Mean Corpuscular HGB Conc 34.8 g/dL (31.6-35.5); Mean Platelet Volume 11.5 fL (9.4-12.4); Monocytes # 0.3 K/mcL (0.0-1.3); Monocytes % 5.1 %; Neutrophils # 3.4 K/mcL (1.6-8.9); Platelet Count 169 K/mcL (140-400); Red Blood Count 3.36 M/mcL (3.82-4.97); Red Cell Distribution Width 12.7 % (11.5-14.5)
[2017-10-22 17:43] LABS: Prothrombin Time 10.5 Seconds (9.4-12.1)
[2017-10-22 17:46] LABS: Activated Partial Thrombo Time 30.8 Seconds (26.0-36.0)
[2017-10-22 17:53] LABS: Calcium 8.8 mg/dL (8.6-10.8); Potassium 3.8 mEq/L (3.5-4.5)
[2017-10-22 18:01] LABS: Bilirubin,Urine Negative (Negative); Blood,Urine Moderate (Negative); Clarity,Urine Cloudy (Clear); Color,Urine Yellow (Yellow); Glucose,Urine (UA) 500 mg/dL (Normal); Ketones,Urine Negative (Negative); Leukocyte Esterase,Urine Small (Negative); Nitrite,Urine Negative (Negative); Protein,Urine >=300 mg/dL (Neg-Trace); Urobilinogen,Urine Normal (Normal)
[2017-10-22 18:13] LABS: WBC,Urine 50-100 per hpf (0-3)
[2017-10-22 18:14] LABS: Bacteria,Urine Few per hpf (None-Few); Squamous Epithelial Cell,Urine Few per lpf (None-Few); Yeast,Urine Many per hpf (None Seen)
[2017-10-22] MEDS ORDERED: cefTRIAXone 1,000 MG in Water for inj. (sterile) 10 ML IVP ONE (18:14)
[2017-10-22] MEDS ORDERED: Ondansetron 4 MG/2 ML VIAL IVP PRN (20:20)
[2017-10-22] MEDS ORDERED: Naloxone 0.4 MG/ML INJ IVP PRN (20:20)
[2017-10-22] MEDS ORDERED: Dextrose Gel 15 GM PO PRN ×2 (20:20)
[2017-10-22] MEDS ORDERED: *HR* Dextrose 50 % in Water (Syg) 50 ML SYRINGE IVP PRN (20:20)
[2017-10-22] MEDS ORDERED: D5% in Water 1,000 ML IVC PRN (20:20)
[2017-10-22] MEDS ORDERED: Metoprolol XL (24 HR) Succ 50 MG TAB.ER.24H PO STA (21:29)
[2017-10-23] MEDS: 0.9 % Sodium Chloride 1,000 ML IVC SCH ×3 (04:21→22:29)
[2017-10-23] MEDS: Insulin LISPRO 300 UNITS/3 ML VIAL SQ SCH ×3 (09:00→16:24)
[2017-10-23] MEDS ORDERED: cefTRIAXone 1,000 MG in Water for inj. (sterile) 10 ML IVP SCH (09:00)
--- NOTE | 2017-10-23 11:00 | Internal Med History&Physical ---
Date of Encounter: 10/23/17 Time of Encounter: 10:35 Assessment and Plan (1) Vomiting Current visit: Yes Status: Acute Possibly multifactorial etiology including UTI, acute gastroenteritis, and/or diabetic gastroparesis. She will be treated for UTI. Reglan dose will be increased. Further workup will be done as needed. Qualifiers: Qualified Code(s): R11.10 - Vomiting, unspecified (2) UTI (urinary tract infection) Current visit: No Status: Acute She was started on Rocephin in emergency room. I will change her to Levaquin to avoid diarrhea Qualifiers: Urinary tract infection type: acute cystitis Hematuria presence: without hematuria Qualified Code(s): N30.00 - Acute cystitis without hematuria (3) Anemia Current visit: No Status: Chronic Anemia testing 09/08/2017 showed possible iron deficiency and she received iron dextran infusion. Hemoglobin has remained stable. Qualifiers: Anemia type: unspecified type Qualified Code(s): D64.9 - Anemia, unspecified (4) CKD (chronic kidney disease) stage 3, GFR 30-59 ml/min Current visit: Yes Status: Chronic Will monitor renal indices as needed. (5) Hypertension Current visit: No Status: Chronic Continue metoprolol but hold Lasix. Qualifiers: Hypertension type: essential hypertension Qualified Code(s): I10 - Essential (primary) hypertension Internal Medicine - H&P: HPI Chief complaint: Vomiting and diarrhea Admitted From: Emergency Dept Plans for Post Hospital Care: Home History of present illness: Ms. Mohamud is a 66 year old female who came to emergency room stating she had onset of vomiting 10/14/2017. She reports multiple episodes of vomiting with questionable flecks of blood seen in a few of the emesis. She states she had lower midline abdominal sharp pains intermittently since the vomiting started. She reports diarrhea that appeared black in color for the last 2 days. She was evaluated in emergency room and admitted to [facility] floor for ongoing care needs. She was discharged from [facility] approximately 2 weeks ago with diagnosis of gastroenteritis with vomiting and diarrhea. She reports she has not missed any doses of her Reglan which was prescribed empirically several months ago as a trial for possible diabetic gastroparesis. Her GI history is pertinent for GERD but no known disorders of liver gallbladder or exocrine pancreas. Past Med Surg Social Fam HX - Past Medical History Medical history: CHF, coronary artery disease, diabetes, GERD, hyperlipidemia, hypertension, renal disease Psychiatric history: no psych history - Past Surgical History Surgical History: angioplasty/stent, , hysterectomy - Social History Smoking Status: Former smoker Smokeless Tobacco Status: No Alcohol use: none Drug use: none - Family History Mother Family Member Ethnicity: Non- Living Status: Hx Family Cardiac Disorders: Yes Hx Family Respiratory Disorders: No Hx Family Cancer: No Hx Family GI Disorders: No Hx Family Endocrine Disorder: Yes (diabetes) Hx Family Neuromuscular Disorders: No Hx Family Neurologic Disorders: No Hx Family HEENT Disorders: No Hx Family Autoimmune Disorders: No Father Family Member Ethnicity: Non- Living Status: Hx Family Cardiac Disorders: Yes (chf) Hx Family Respiratory Disorders: No Hx Family Cancer: No Hx Family GI Disorders: No Hx Family Endocrine Disorder: No Hx Family Neuromuscular Disorders: No Hx Family Neurologic Disorders: No Hx Family HEENT Disorders: No Hx Family Autoimmune Disorders: No Internal Medicine - H&P: Meds Insulin Glargine [Lantus] 20 unit SQ QPM 11/21/16 [History] Metoclopramide HCl 5 mg PO ACHS #120 tablet 06/03/17 [Rx] Pregabalin [Lyrica] 50 mg PO BID #60 capsule 06/03/17 [Rx] Magnesium Oxide [Mag-Ox] 400 mg PO BID #6 tablet 07/14/17 [Rx] Furosemide [Lasix] 20 mg PO DAILY 09/07/17 [History] Insulin ASPART [Novolog Flexpen] 0 unit SQ TID 09/07/17 [History] Simvastatin [Zocor] 5 mg PO BID 09/07/17 [History] Isosorbide MONOnitrate (24 HR) [Imdur] 60 mg PO DAILY #30 tab.er.24h 09/10/17 [ Rx] Nitroglycerin 0.4 mg SL Q5MIN PRN #1 vial 09/10/17 [Rx] Metoprolol Succinate 100 mg PO DAILY #30 tab.er.24h 10/11/17 [Rx] 3 Allergy/AdvReac Type Severity Reaction Status Date / Time Sulfa (Sulfonamide Allergy Hives Verified 10/22/17 23:32 Antibiotics) acetaminophen [From Tylenol] AdvReac Anaphylaxis Verified 05/31/17 17:29 gabapentin [From Neurontin] AdvReac Hallucinati Verified 10/22/17 23:32 ng hydrocodone AdvReac Hives Verified 10/22/17 23:32 ibuprofen AdvReac Hives Verified 10/22/17 23:32 All Systems PM: A 10-system review of systems was performed and is negative for pertinent findings except as documented above in the HPI. Review of systems: Review of systems from her September [address] [facility] hospitalization were reviewed and revised as below. General: Her weight has decreased from 77.247 kg on 10/27/2015 to 63.503 kg on admission now. Cardiovascular: She has history of hypertension but denies OH heart failure DVT or pulmonary embolus. She has known ASHD with stents placed in 2004 and 2005. Her last heart catheter was 2005. She had a Regadenoson EST 07/06/2010 which showed no perfusion or EKG evidence of ischemia. Respiratory: She smoked for approximately 4 years in her early 20s but has no known chronic lung disease. She does not wear home oxygen and does not recall being tested for sleep apnea GI: As per history of present illness. : She has had numerous UTIs in the past. She has chronic kidney disease stage III and follows with a [facility] oreman. She denies hematuria dysuria or kidney stones. Neurologic: She denies large distribution strokes or seizures. 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 She has hyperlipidemia but no known thyroid disease Hematology/oncology: She denies blood disorders or cancers. She had anemia and was given IV iron dextran during her August [address] [facility] hospitalization. Psychiatric: She denies anxiety depression or other mental health issues Musk skeletal: She denies arthritis or osteoporosis or gout. She did have elevated uric acid level at 8.0 on 02/13/2016 but it had improved to 6.3 on . She has had right great toe amputation in the distant past - Constitutional Vitals: Temp Pulse Resp BP Pulse Ox 99.4 F 69 18 152/73 97 10/23/17 06:53 10/23/17 06:53 10/23/17 06:53 10/23/17 06:53 10/23/17 06:53 Exam: Gen.: She is a well-developed well-nourished female lying in bed who appears in no severe distress at present time HEENT: Head is atraumatic and normocephalic. Eyes: Right eye shows EOMI. She keeps left eye closed. Mouth: Mucosa is moist. Neck: Supple and nontender. There is no thyromegaly or adenopathy. Heart: Regular without murmurs gallops or ectopics Lungs: No wheezes or crackles are heard. Abdomen: Soft and nontender. No masses or guarding are noted. Bowel sounds are diminished. Extremities: There is no cyanosis edema or clubbing noted. Dorsalis pedis and posterior tibial pulses are trace palpable bilaterally. She has had right great toe amputation. Neurologic: Mental status: She is talkative and a good historian. Cranial nerves: Smile is symmetric. Forehead wrinkles bilaterally. Tongue protrudes midline. EOMI. Motor: There is no pronator drift. Cerebellar: Finger to nose is intact bilaterally. Skin: Warm and dry Internal Med - H&P Results - Labs CBC & Chem 7: 10/22/17 17:29 10/22/17 17:29 - VTE Documentation of Mechanical Device: Graduated compression elastic hosiery
[2017-10-23] MEDS ORDERED: Ondansetron 4 MG/2 ML VIAL IVP PRN (11:11)
[2017-10-23] MEDS ORDERED: levoFLOXacin 500 MG TABLET PO SCH (11:15)
--- NOTE | 2017-10-23 12:07 | Electrocardiograph Report ---
[address] [address] Test Date: 2017-10-22 Pat Name: Elena Mohamud Department: [id number] Room: 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
[2017-10-23] MEDS: Pregabalin 50 MG CAPSULE PO SCH (22:27)
[2017-10-24] MEDS ORDERED: Metoprolol XL (24 HR) Succ 50 MG TAB.ER.24H PO SCH (09:00)
[2017-10-24] MEDS: Pregabalin 50 MG CAPSULE PO SCH (09:20)
[2017-10-24] MEDS: 0.9 % Sodium Chloride 1,000 ML IVC SCH (09:20)
[2017-10-24] MEDS: Insulin LISPRO 300 UNITS/3 ML VIAL SQ SCH ×2 (09:26→14:45)
[2017-10-24 11:22] VITALS: BP 137/52
--- NOTE | 2017-10-24 11:32 | Discharge Summary ---
Date of Encounter: 10/24/17 Time of Encounter: 11:20 - Discharge Diagnosis (1) Vomiting Priority: Primary Status: Resolved Qualifiers: Qualified Code(s): R11.10 - Vomiting, unspecified (2) UTI (urinary tract infection) Priority: Secondary Status: Resolved Qualifiers: Urinary tract infection type: acute cystitis Hematuria presence: without hematuria Qualified Code(s): N30.00 - Acute cystitis without hematuria (3) Anemia Priority: Secondary Status: Chronic Qualifiers: Anemia type: unspecified type Qualified Code(s): D64.9 - Anemia, unspecified (4) CKD (chronic kidney disease) stage 3, GFR 30-59 ml/min Priority: Secondary Status: Chronic (5) Hypertension Priority: Secondary Status: Chronic Qualifiers: Hypertension type: essential hypertension Qualified Code(s): I10 - Essential (primary) hypertension - Discharge Medications Prescriptions: Metoclopramide [Reglan] 10 mg PO QIDAC #120 tablet Home Medications: Insulin Glargine [Lantus] 20 unit SQ QPM 11/21/16 [History] Pregabalin [Lyrica] 50 mg PO BID #60 capsule 06/03/17 [Rx] Magnesium Oxide [Mag-Ox] 400 mg PO BID #6 tablet 07/14/17 [Rx] Insulin ASPART [Novolog Flexpen] 0 unit SQ TID 09/07/17 [History] Simvastatin [Zocor] 5 mg PO BID 09/07/17 [History] Isosorbide MONOnitrate (24 HR) [Imdur] 60 mg PO DAILY #30 tab.er.24h 09/10/17 [ Rx] Nitroglycerin 0.4 mg SL Q5MIN PRN #1 vial 09/10/17 [Rx] Metoprolol Succinate 100 mg PO DAILY #30 tab.er.24h 10/11/17 [Rx] Furosemide [Lasix] 20 mg PO Q48H #0 10/24/17 [Rx] Metoclopramide [Reglan] 10 mg PO QIDAC #120 tablet 10/24/17 [Rx] Allergies/Adverse Reactions: 3 Allergy/AdvReac Type Severity Reaction Status Date / Time Sulfa (Sulfonamide Allergy Hives Verified 10/22/17 23:32 Antibiotics) acetaminophen [From Tylenol] AdvReac Anaphylaxis Verified 05/31/17 17:29 gabapentin [From Neurontin] AdvReac Hallucinati Verified 10/22/17 23:32 ng hydrocodone AdvReac Hives Verified 10/22/17 23:32 ibuprofen AdvReac Hives Verified 10/22/17 23:32 Date of admission: 10/22/17 19:24 Primary care physician: Veronica Carr CNP - Patient Status Disposition: Home, Self-Care Condition: Good Overall status at discharge: patient is progressing back to baseline - Discharge Instructions Follow Up With: Veronica Carr CNP [Primary Care Provider] - 1 week - Diet and Activity Activity: resume usual activities as tolerated Diet: diabetic diet Hospital course: Ms. Mohamud is a 66 year old female who came to emergency room stating she had onset of vomiting 10/14/2017. She reports multiple episodes of vomiting with questionable flecks of blood seen in a few of the emesis. She states she had lower midline abdominal sharp pains intermittently since the vomiting started. She reports diarrhea that appeared black in color for the last 2 days. She was evaluated in emergency room and admitted to [facility] for ongoing care needs. Initial orders were written by the emergency room physician. I saw her on October 23 and performed the history and physical. She was started on IV fluids and given prn antiemetics. She had minimal vomiting after admission to [facility]. She was tolerating adequate amounts of food and fluid when I saw her on October 24. It was learned she had been taking Trulicity at home. I explained to her this would delay gastric emptying and possibly cause nausea and vomiting. She will remain off this. Reglan dose was increased to 10 mg 4 times a day before meals and at bedtime. This higher dose will be continued at home. She was given Rocephin empirically in emergency room for possible UTI. I changed her to Levaquin on admission to avoid diarrhea. Urine culture returned showing no growth and antibiotics will not be continued at discharge. On October 24 she was stable for discharge home. She will follow with her PCP Veronica Carr CNP within 1 week. - Time Spent with Patient Total time spent providing and/or coordinating discharge services: - Constitutional Vitals: Temp Pulse Resp BP Pulse Ox 98.3 F 62 18 137/52 94 10/24/17 11:18 10/24/17 11:18 10/24/17 11:18 10/24/17 11:18 10/24/17 11:18 - VTE Documentation of Mechanical Device: Graduated compression elastic hosiery
[2017-10-24] MEDS ORDERED: Insulin LISPRO 300 UNITS/3 ML VIAL SQ SCH (21:00)
[2017-10-25] MEDS ORDERED: levoFLOXacin 500 MG TABLET PO SCH (09:00)
== END 2017-10-24 15:25 | disposition home or self-care (01) ==
LOC: EMEROOPIK 16:26 → INPPIK 16:26
PROVIDERS: ADMIT Internal Medicine; ATTEND Internal Medicine